=== PATIENT | female | born 1975 | race Caucasian/White ===

== ENCOUNTER 2018-06-05 16:42 | Outpatient (REF) | payer BC, SELFPAY ==
[2018-06-05 17:53] LABS: *AMPHETAMINES SCREEN URINE Negative (Negative); *BARBITURATES SCREEN URINE Negative (Negative); *BENZODIAZEPINES SCREEN URINE Negative (Negative); Cannabinoids THC Negative (Negative); Cocaine Screen,Urine Negative (Negative); METHADONE URINE SCREEN Negative (Negative); OPIATES URINE SCREEN Negative (Negative)
[2018-06-05 17:55] LABS: Tricyclic Antidepressants Negative (Negative)
[2018-06-10 11:59] LABS: Buprenorphine Negative; Norbuprenorphine Negative
== END 2018-06-05 17:02 ==
LOC: LBN 16:42
PROVIDERS: PCP Nurse Practitioner Family; Visit Provider Advanced Practice Midwife
DX: Z34.92 Encounter for supervision of normal pregnancy, unspecified, second trimester (principal)
CPT/HCPCS: 80307; 87086

== ENCOUNTER 2018-07-02 12:26 | Outpatient (CLI) | payer BC, SELFPAY ==
[2018-07-02 13:05] LABS: Glucose,1 Hr (Glucola) 130 mg/dL (80-140)
== END 2018-07-02 12:46 ==
PROVIDERS: Advanced Practice Midwife; PCP Nurse Practitioner Family; Visit Provider Advanced Practice Midwife
DX: Z34.92 Encounter for supervision of normal pregnancy, unspecified, second trimester (principal)
CPT/HCPCS: 36415; 82950

== ENCOUNTER 2018-07-02 14:01 | Outpatient (CLI) | payer BC, SELFPAY | END 2018-07-02 14:21 | PROVIDERS: PCP Nurse Practitioner Family; Visit Provider Advanced Practice Midwife | DX: R69 Illness, unspecified (principal) ==

== ENCOUNTER 2018-07-14 15:49 | Outpatient (REF) | payer BC, SELFPAY | END 2018-07-14 16:09 | LOC: LBN 15:49 | PROVIDERS: PCP Nurse Practitioner Family; Visit Provider Advanced Practice Midwife | DX: O26.892 Other specified pregnancy related conditions, second trimester (principal); R30.0 Dysuria | CPT/HCPCS: 87086 ==

== ENCOUNTER 2018-07-28 00:24 | Outpatient (CLI) | payer BC, SELFPAY ==
--- NOTE | 2018-07-28 15:53 | DI.US_ITS ---
Many abnormalities cannot be diagnosed. A normal exam does not exclude a congenital anomaly. Radiology No. LMP: Exam Date: 07/28/18 [facility] wks days on EDC ([facility]) 09/21/18 Confirmed: HISTORY: Z34.90, ADVANCED MATERNAL AGE,EFW, MURIEL PREDICTED GESTATIONAL AGE NUMBER 32.1 weeks with a range of 31.1 week to 33.1 weeks. 1 Determined by___1STUS___LMP_X_HISTORY Info. pertaining to fetus # PLACENTA PRESENTATION Grade I-II Cephalic_X__ Anterior___Posterior_X__ Breech____ Right Left Transverse(head right___ Fundal___Low-lying___Previa___ Transverse(head left___ Varying BIOMETRY AMNIOTIC FLUID BPD: 83 mm 33.2 weeks Normal HC: 301 mm 33.3 weeks AC: 298 mm 33.6 weeks FL: 62 mm 32.2 weeks AMNIOTIC FLUID INDEX >26 WK CRL: mm weeks Cisterna Magna: mm CI: 86 RUQ:_6.0 LUQ__1.9 Cerebellum: cm EFW: 2159 grams 76th Percentile RLQ:_2.4 LLQ___5.4____ Total:___15.7 cms Composite AGE= 33.2 wks EDC by US 09/13/18 BIOPHYSICAL PROFILE ANATOMY IDENTIFIED SCORE 0/2 Heart: 4-Chamber___Rate:BPM_136____ LVOT: RVOT: Amniotic Fluid(>2cms)____ Stomach: Kidneys: Respirations (>30 secs) Bladder: Post. Fossa: Body Flex/Extension 3 vessel cord: Ventricles: cord insertion: Lips:____ Extremity Flex/Extension spinal morphology: Nose: Total Score= Palate: NS=not seen The fetus is in cephalic position. The placenta is posterior and grade I-II. The biometric measurements correspond to 33 weeks 2 days. The estimated weight is 2159 grams. The amniotic fluid index appears normal at 15.7. IMPRESSION: weight and MURIEL are within normal limits.
== END 2018-07-28 00:44 ==
PROVIDERS: PCP Nurse Practitioner Family; Visit Provider Advanced Practice Midwife
DX: Z34.93 Encounter for supervision of normal pregnancy, unspecified, third trimester (principal)
CPT/HCPCS: 76816

== ENCOUNTER 2018-07-28 14:35 | Outpatient (CLI) | payer BC, SELFPAY ==
[2018-07-28 15:12] LABS: HGB 11.6 g/dL (12.0-15.5); Mean Corp. HGB Concentration 34.1 g/dL (32.0-36.0); Mean Corpuscular Hemoglobin 30.2 pg (27.0-33.0); Mean Corpuscular Volume 88.5 fL (80-95); Mean Platelet Volume 10.1 fL (8.0-11.0); Platelet Count 242 x1000/uL (130-400); RBC 3.84 m/cumm (4.00-5.20); RBC Distribution Width 12.5 % (11.7-14.6); White Blood Cell Count 12.79 k/cumm (4.4-10.8)
== END 2018-07-28 14:55 ==
PROVIDERS: Advanced Practice Midwife; PCP Nurse Practitioner Family; Visit Provider Advanced Practice Midwife
DX: Z34.92 Encounter for supervision of normal pregnancy, unspecified, second trimester (principal); Z01.84 Encounter for antibody response examination
CPT/HCPCS: 36415; 85027; 86850; 86900; 86901

== ENCOUNTER 2018-08-12 13:30 | Observation (INO) | payer BC, SELFPAY | END 2018-08-12 15:30 | disposition home or self-care (01) | PROVIDERS: Admitting Provider Advanced Practice Midwife; PCP Nurse Practitioner Family; Visit Provider Advanced Practice Midwife | DX: O60.03 Preterm labor without delivery, third trimester (principal); O98.813 Other maternal infectious and parasitic diseases complicating pregnancy, third trimester; B37.3 Candidiasis of vulva and vagina; Z3A.34 34 weeks gestation of pregnancy; O09.523 Supervision of elderly multigravida, third trimester | CPT/HCPCS: 59025; G0378 ==

== ENCOUNTER 2018-08-25 07:13 | Outpatient (CLI) | payer BC, SELFPAY | END 2018-08-25 07:33 | PROVIDERS: PCP Nurse Practitioner Family; Visit Provider Advanced Practice Midwife | DX: O09.523 Supervision of elderly multigravida, third trimester (principal); Z3A.36 36 weeks gestation of pregnancy | CPT/HCPCS: 59025 ==

== ENCOUNTER 2018-08-25 16:39 | Outpatient (REF) | payer BC, SELFPAY | END 2018-08-25 16:59 | LOC: LBN 16:39 | PROVIDERS: PCP Nurse Practitioner Family; Visit Provider Advanced Practice Midwife | DX: Z34.93 Encounter for supervision of normal pregnancy, unspecified, third trimester (principal); Z36.85 Encounter for antenatal screening for Streptococcus B | CPT/HCPCS: 87081 ==

== ENCOUNTER 2018-08-28 07:41 | Outpatient (CLI) | payer BC, SELFPAY | END 2018-08-28 08:01 | PROVIDERS: PCP Nurse Practitioner Family; Visit Provider Advanced Practice Midwife | DX: O09.523 Supervision of elderly multigravida, third trimester (principal); O36.8130 Decreased fetal movements, third trimester, not applicable or unspecified; Z3A.36 36 weeks gestation of pregnancy | CPT/HCPCS: 59025 ==

== ENCOUNTER 2018-09-01 13:00 | Outpatient (CLI) | payer BC, SELFPAY ==
[2018-09-01 15:01] LABS: HCT 34.4 % (36.0-46.0); HGB 11.5 g/dL (12.0-15.5); Mean Corp. HGB Concentration 33.4 g/dL (32.0-36.0); Mean Corpuscular Hemoglobin 29.5 pg (27.0-33.0); Mean Corpuscular Volume 88.2 fL (80-95); Mean Platelet Volume 10.5 fL (8.0-11.0); Platelet Count 240 x1000/uL (130-400); RBC Distribution Width 12.7 % (11.7-14.6); White Blood Cell Count 12.61 k/cumm (4.4-10.8)
[2018-09-01 16:35] LABS: PROTEIN 8.9 mg/dL
[2018-09-01 16:47] LABS: ALT 20 U/L (12-78); AST 19 U/L (15-37); Albumin 2.7 g/dL (3.4-5.0); Alkaline Phosphatase 134 U/L (46-116); Bilirubin, Direct 0.06 mg/dL (0.00-0.20); Bilirubin, Total 0.2 mg/dL (0.2-1.0); CREATININE 0.63 mg/dL (0.55-1.02); Total Protein 6.3 g/dL (6.4-8.2); Uric Acid 3.3 mg/dL (2.6-6.0)
[2018-09-01 16:51] LABS: COMMENT (LAB VIEW ONLY) 48.02 mg/dL; Prot/Crea Ur Ratio 0.18
== END 2018-09-01 13:20 ==
PROVIDERS: Advanced Practice Midwife; PCP Nurse Practitioner Family; Visit Provider Advanced Practice Midwife
DX: O09.523 Supervision of elderly multigravida, third trimester (principal); Z3A.37 37 weeks gestation of pregnancy
CPT/HCPCS: 36415; 80076; 85027; 59025; 82565; 84156; 84550

== ENCOUNTER 2018-09-04 14:39 | Outpatient (CLI) | payer BC, SELFPAY | END 2018-09-04 14:59 | PROVIDERS: PCP Nurse Practitioner Family; Visit Provider Advanced Practice Midwife | DX: O36.8130 Decreased fetal movements, third trimester, not applicable or unspecified (principal); O09.523 Supervision of elderly multigravida, third trimester; Z3A.37 37 weeks gestation of pregnancy | CPT/HCPCS: 59025 ==

== ENCOUNTER 2018-09-08 08:02 | Outpatient (CLI) | payer BC, SELFPAY | END 2018-09-08 08:22 | PROVIDERS: PCP Nurse Practitioner Family; Visit Provider Advanced Practice Midwife | DX: O09.523 Supervision of elderly multigravida, third trimester (principal); Z3A.38 38 weeks gestation of pregnancy | CPT/HCPCS: 59025 ==

== ENCOUNTER 2018-09-08 14:42 | Outpatient (REF) | payer BC, SELFPAY ==
[2018-09-08 15:17] LABS: ROM Plus Negative
== END 2018-09-08 15:02 ==
LOC: LBN 14:42
PROVIDERS: PCP Nurse Practitioner Family; Visit Provider Advanced Practice Midwife
DX: Z34.93 Encounter for supervision of normal pregnancy, unspecified, third trimester (principal)
CPT/HCPCS: 84112

== ENCOUNTER 2018-09-15 07:45 | Outpatient (CLI) | payer BC, SELFPAY | END 2018-09-15 08:05 | PROVIDERS: PCP Nurse Practitioner Family; Visit Provider Advanced Practice Midwife | DX: O09.523 Supervision of elderly multigravida, third trimester (principal); Z3A.39 39 weeks gestation of pregnancy | CPT/HCPCS: 59025 ==

== ENCOUNTER 2018-09-18 13:08 | Outpatient (CLI) | payer BC, SELFPAY | END 2018-09-18 13:28 | PROVIDERS: PCP Nurse Practitioner Family; Visit Provider Advanced Practice Midwife | DX: O09.523 Supervision of elderly multigravida, third trimester (principal); Z3A.39 39 weeks gestation of pregnancy | CPT/HCPCS: 59025 ==

== ENCOUNTER 2018-09-19 08:22 | Inpatient (IN) | payer BC, SELFPAY ==
[2018-09-19 09:16] LABS: HCT 34.4 % (36.0-46.0); HGB 11.3 g/dL (12.0-15.5); Mean Corp. HGB Concentration 32.8 g/dL (32.0-36.0); Mean Corpuscular Hemoglobin 28.9 pg (27.0-33.0); Mean Platelet Volume 10.7 fL (8.0-11.0); Platelet Count 221 x1000/uL (130-400); RBC 3.91 m/cumm (4.00-5.20); RBC Distribution Width 13.2 % (11.7-14.6); White Blood Cell Count 9.29 k/cumm (4.4-10.8)
[2018-09-19] MEDS: Water,Injection,Sterile 10 ML VIAL (12:06)
[2018-09-19] MEDS: Oxytocin 10 UNITS/ML VIAL IM (14:40)
[2018-09-19] MEDS: Acetaminophen 325 MG TAB 650 MG PO (16:16)
[2018-09-19] MEDS: Hamamelis Leaf/Glycerin 100 EACH BOX PR (16:16)
[2018-09-19] MEDS: Ibuprofen 600 MG TAB PO (16:16)
[2018-09-19] MEDS: oxyCODONE 5 mg/Acetaminophen 325 mg TAB 1 TAB PO (19:16)
[2018-09-20] MEDS: oxyCODONE 5 mg/Acetaminophen 325 mg TAB 1 TAB PO (00:07)
== END 2018-09-21 13:00 | disposition home or self-care (01) | DRG 806 ==
PROVIDERS: Admitting Provider Advanced Practice Midwife; PCP Nurse Practitioner Family; Visit Provider Advanced Practice Midwife
DX: O42.02 Full-term premature rupture of membranes, onset of labor within 24 hours of rupture (principal); O99.324 Drug use complicating childbirth; Z37.0 Single live birth; Z3A.39 39 weeks gestation of pregnancy; O70.0 First degree perineal laceration during delivery; O66.0 Obstructed labor due to shoulder dystocia; F12.90 Cannabis use, unspecified, uncomplicated; Z79.82 Long term (current) use of aspirin; Z67.40 Type O blood, Rh positive; Z23 Encounter for immunization
CPT/HCPCS: 36415; 85027; 86850; 86900; 86901; J2590

== ENCOUNTER 2019-07-05 12:04 | Outpatient (CLI) | payer MEDICAID, SELFPAY ==
[2019-07-05 12:45] LABS: Abs Immature Grans 0.04 k/cumm (0.0-0.09); Absolute Basophil Count 0.02 k/cumm (0.0-0.2); Absolute Eosinophil Count 0.09 k/cumm (0.0-0.7); Absolute Lymphocyte Count 1.67 k/cumm (1.2-3.4); Absolute Monocyte Count 0.61 k/cumm (0.11-0.7); Absolute Neutrophil Count 7.75 k/cumm (1.2-6.7); Basophils % 0.2; Eosinophils % 0.9; HCT 39.4 % (36.0-46.0); HGB 13.4 g/dL (12.0-15.5); Immature Grans % 0.4 %; Lymphocytes % 16.4; Mean Corpuscular Hemoglobin 29.7 pg (27.0-33.0); Mean Corpuscular Volume 87.4 fL (80-95); Mean Platelet Volume 9.2 fL (8.0-11.0); Neutrophils % 76.1; Platelet Count 331 x1000/uL (130-400); RBC 4.51 m/cumm (4.00-5.20); RBC Distribution Width 12.1 % (11.7-14.6); White Blood Cell Count 10.18 k/cumm (4.4-10.8)
[2019-07-05 14:28] LABS: Kit/Specimen SENT
[2019-07-06 09:56] LABS: Hepatitis B Surface Ag Negative (Negative)
[2019-07-06 10:41] LABS: Hepatitis C Ab w Rflx HCV PCR Negative (Negative); Rubella IgG Ab (UVM) Negative (See Note); Varicella IgG Antibody Positive (See Note)
[2019-07-06 11:08] LABS: HIV-1/2 Ag & Ab Screen Negative (Negative)
[2019-07-06 14:44] LABS: Syphilis Total Ab w/Reflex Nonreactive (Nonreactive)
== END 2019-07-05 12:24 ==
PROVIDERS: PCP Nurse Practitioner Family; Visit Provider Advanced Practice Midwife
DX: Z34.91 Encounter for supervision of normal pregnancy, unspecified, first trimester (principal); Z36.89 Encounter for other specified antenatal screening; Z11.4 Encounter for screening for human immunodeficiency virus [HIV]; Z11.59 Encounter for screening for other viral diseases; Z01.84 Encounter for antibody response examination
CPT/HCPCS: 36415; 86787; 86803; 86850; 86900; 86901; 87340; 87389; 85025; 86762; 86780

== ENCOUNTER 2019-07-05 15:40 | Outpatient (REF) | payer MEDICAID, SELFPAY ==
--- NOTE | 2019-07-05 13:40 | PAPFT_PTH ---
PATIENT: Sofia Vallejo LOC: [facility] U#:[id number] AGE/SX: 43/F ROOM: RE07/05/[address]: Faina Schulz RN : 1975 BED: DIS: 07/05/2019 SPEC #: [id number] RECD: 07/05/19 17:48 STATUS: MADDIE MONDRAGON #: [id number] TATIANA: 07/05/19 13:[address]: Faina Schulz DEPT: [facility] Cytology RECD BY: Deedee Weathers ENTERED: 07/05/19 17:48 SP TYPE: PAPFT OTHR DR: Judith Solares Tissues: 1 - CX/ENDOCX FOR PAP SMEARS Procedures: PAP THIN PREP/UVM Screening HPV DNA PROBE Comments: [id number]
[2019-07-05 17:08] LABS: *AMPHETAMINES SCREEN URINE Negative (Negative); *BARBITURATES SCREEN URINE Negative (Negative); *BENZODIAZEPINES SCREEN URINE Negative (Negative); Cannabinoids THC Negative (Negative); Cocaine Screen,Urine Negative (Negative); METHADONE URINE SCREEN Negative (Negative); OPIATES URINE SCREEN Negative (Negative)
[2019-07-05 17:09] LABS: Tricyclic Antidepressants Negative (Negative)
[2019-07-07 13:07] LABS: Chlamydia Result Negative (Negative); GC Result Negative (Negative)
[2019-07-09 11:34] LABS: Buprenorphine Negative; Norbuprenorphine Negative
== END 2019-07-05 16:00 ==
LOC: LBN 15:40
PROVIDERS: Advanced Practice Midwife; PCP Nurse Practitioner Family; Visit Provider Advanced Practice Midwife
DX: Z34.91 Encounter for supervision of normal pregnancy, unspecified, first trimester (principal); Z11.3 Encounter for screening for infections with a predominantly sexual mode of transmission; Z12.4 Encounter for screening for malignant neoplasm of cervix; Z11.51 Encounter for screening for human papillomavirus (HPV)
CPT/HCPCS: 80307; 87491; 87591; 88142; 87086; 87624

== ENCOUNTER 2019-11-02 01:25 | Outpatient (CLI) | payer MEDICAID, SELFPAY ==
--- NOTE | 2019-11-02 10:15 | DI.US_ITS ---
EXAM: US OB MURIEL WEIGHT CLINICAL HISTORY: marginal cord insertion ck efw/muriel, Z34.90. TECHNIQUE: Transabdominal obstetrical ultrasound performed. COMPARISON: US US OB MURIEL weight from 07/28/2018 FINDINGS: Transabdominal obstetrical ultrasound performed. There is a single living intrauterine gestation. The estimated sonographic age is 28 weeks 2 days. The estimated weight is 1158 g. This is 61st percentile. Amniotic fluid index is 11.6 cm. Vi sually the amniotic fluid is within normal limits. The fetus is in the breech presentation. heart rate is 163 beats per minute. The placenta is anterior without evidence of previa. There is no evidence of a marginal cord inserti on. The cord measures 5.9 cm from the edge of the placenta. IMPRESSION: 1. Single live intrauterine gestation as above. 2. Please see the above discussion for complete details. DATA REPOSITORY:
== END 2019-11-02 01:45 ==
PROVIDERS: PCP Nurse Practitioner Family; Visit Provider Advanced Practice Midwife
DX: Z34.93 Encounter for supervision of normal pregnancy, unspecified, third trimester (principal); Z3A.28 28 weeks gestation of pregnancy
CPT/HCPCS: 36415; 76816; 82950; 85027

== ENCOUNTER 2019-11-09 17:26 | Observation (INO) | payer MEDICAID, SELFPAY ==
--- NOTE | 2019-11-09 | DI.CT_ITS ---
EXAM: CT CHEST PE CTA CLINICAL HISTORY: rule out PE, 28 weeks gestation. TECHNIQUE: Imaging Protocol: Axial CT angiography was performed with multi-slice acquisition and mu lti-planar and/or 3D reconstructions. CONTRAST MATERIAL: Intravenous: Omnipaque 350 Contrast volume:63 cc. COMPARISON: CT ABD PELVIS WITH CONTRAST from 12/13/2016 FINDINGS: There is artifact related to spinal hardware. Pulmonary Arteries: No evidence of filling defect to suggest pulmonary emboli. Tracheobronchial tree: Patent where visualized. Mediastinum and Janel: No dominant adenopathy or fluid collection. Pulmonary parenchyma: No consolidation or dominant measurable mass. Mild respiratory motion and depen dent changes.. Pleura: No effusion or pneumothorax. Heart: The heart is not dilated. No coronary artery calcifications are seen. Aorta: Thoracic aorta non-dilated. Upper abdomen: Unremarkable. Bones: Severe thoracic scoliosis with Wilcox rods in place. Tubes, Catheters, and Lines: IMPRESSION: No evidence of pulmonary embolism or other acute abnormality.. RADIATION DOSE DELIVERED: Total DLP DATA REPOSITORY: All CT scans at this facility are submitted to the National Radiology Data Registry (NRDR) Dose Index Registry (DIR) with the [employer] (ACR). RADIATION OPTIMIZATION: All CT scans at this facility use at least one of these dose optimization te chniques: automated exposure control; mA and/or kV adjustment per patient size (includes targeted exa ms where dose is matched to clinical indication); or iterative reconstruction.
[2019-11-09 18:16] LABS: Abs Immature Grans 0.03 k/cumm (0.0-0.09); Absolute Basophil Count 0.01 k/cumm (0.0-0.2); Absolute Eosinophil Count 0.05 k/cumm (0.0-0.7); Absolute Lymphocyte Count 1.56 k/cumm (1.2-3.4); Absolute Monocyte Count 0.83 k/cumm (0.11-0.7); Absolute Neutrophil Count 7.17 k/cumm (1.2-6.7); Basophils % 0.1; Eosinophils % 0.5; HCT 31.2 % (36.0-46.0); HGB 10.5 g/dL (12.0-15.5); Immature Grans % 0.3 %; Lymphocytes % 16.2; Mean Corp. HGB Concentration 33.7 g/dL (32.0-36.0); Mean Corpuscular Volume 89.1 fL (80-95); Mean Platelet Volume 9.9 fL (8.0-11.0); Monocytes % 8.6; Neutrophils % 74.3; Platelet Count 225 x1000/uL (130-400); RBC Distribution Width 12.3 % (11.7-14.6); White Blood Cell Count 9.65 k/cumm (4.4-10.8)
[2019-11-09 18:31] LABS: ALT 11 U/L (14-59); AST 12 U/L (15-37); Albumin 2.7 g/dL (3.4-5.0); Alkaline Phosphatase 69 U/L (46-116); Anion Gap 10.2 mmol/L (3-11); BUN 7 mg/dL (7-18); Bilirubin, Total 0.2 mg/dL (0.2-1.0); CO2 22.8 mmol/L (21.0-32.0); Calcium 8.2 mg/dL (8.5-10.1); Chloride 106 mmol/L (98-107); Glucose 70 mg/dL (74-106); NT-proBNP 61 pg/mL (<300); Potassium 3.4 mmol/L (3.5-5.1); Sodium 139 mmol/L (136-145)
[2019-11-09 18:42] LABS: D-Dimer 1534 ng/mlFEU (<500)
[2019-11-09] MEDS: Omnipaque 350 MG/ML 100 ML BTL IV (20:28)
[2019-11-09] MEDS: Normal Saline 20 ML VIAL IV ×2 (20:33→20:34)
[2019-11-09] MEDS: Normal Saline Flush 10 ML SYR (20:38)
--- NOTE | 2019-11-09 20:48 | DI.VRAD_ITS ---
PROCEDURE INFORMATION: Exam: CT Angiography Chest With Contrast Exam date and time: 11/09/2019 8:15 PM Age: 44 years old Clinical indication: Other: Rule out pe, 28 weeks gestation; Prior surgery; Surgery date: 6+ months; Surgery type: Back TECHNIQUE: Imaging protocol: Computed tomographic angiography of the chest with intravenous contrast. 3D rendering: MIP and/or 3D reconstructed images were created by the technologist. Radiation optimization: All CT scans at this facility use at least one of these dose optimization techniques: automated exposure control; mA and/or kV adjustment per patient size (includes targeted exams where dose is matched to clinical indication); or iterative reconstruction. Contrast material: OMNIPAQUE 35; Contrast volume: 63 ml; Contrast route: INTRAVENOUS (IV); COMPARISON: No relevant prior studies available. FINDINGS: Pulmonary arteries: Normal. No pulmonary emboli. Aorta: Unremarkable. No aortic aneurysm. No aortic dissection. Lungs: Unremarkable. No consolidation. No masses. Pleural space: Unremarkable. No pneumothorax. No pleural effusion. Heart: Unremarkable. No cardiomegaly. No pericardial effusion. Mediastinal space: Small to moderate hiatal hernia. Lymph nodes: Unremarkable. No enlarged lymph nodes. Bones/joints: Scoliosis surgery has been performed. Soft tissues: Unremarkable. IMPRESSION: No pulmonary embolism. Dictated and Authenticated by: Abiola Kumar MD. Ordering:PATO Bahena MD
[2019-11-10 08:45] LABS: COVID-19 RT-PCR UVMMC Result Negative (Negative)
== END 2019-11-09 21:14 | disposition home or self-care (01) ==
PROVIDERS: Admitting Provider Advanced Practice Midwife; PCP Nurse Practitioner Family; Visit Provider Advanced Practice Midwife
DX: O26.893 Other specified pregnancy related conditions, third trimester (principal); R06.02 Shortness of breath; Z11.59 Encounter for screening for other viral diseases
CPT/HCPCS: 71275; 80053; U0003; 59025; 83880; 85025; 85379; G0378; J3490

== ENCOUNTER 2019-11-12 04:12 | Outpatient (RCR) | payer MEDICAID, SELFPAY ==
[2019-11-12] MEDS: Normal Saline Flush 10 ML SYR IVP (13:26)
[2019-11-12 13:33] LABS: HCT 34.8 % (36.0-46.0); HGB 11.5 g/dL (12.0-15.5)
[2019-11-12] MEDS: IRON SUCROSE COMPLEX 200 MG in Normal Saline 100 ML 440 MG IVPB (13:43)
== END 2019-12-03 23:59 | disposition home or self-care (01) ==
LOC: INF 04:12
PROVIDERS: PCP Nurse Practitioner Family; Visit Provider Advanced Practice Midwife
DX: D50.9 Iron deficiency anemia, unspecified (principal); O99.013 Anemia complicating pregnancy, third trimester
CPT/HCPCS: 36415; 96365; 85014; 85018; J1756

== ENCOUNTER 2019-12-17 12:51 | Outpatient (REF) | payer MEDICAID, SELFPAY | END 2019-12-17 13:11 | LOC: LBN 12:51 | PROVIDERS: PCP Nurse Practitioner Family; Visit Provider Advanced Practice Midwife | DX: B37.3 Candidiasis of vulva and vagina (principal) | CPT/HCPCS: 87480; 87510; 87660 ==

== ENCOUNTER 2019-12-20 14:29 | Outpatient (CLI) | payer MEDICAID, SELFPAY ==
--- NOTE | 2019-12-20 | DI.US_ITS ---
EXAM: US OB MURIEL WEIGHT CLINICAL HISTORY: Lagging fundal height, Size < Dates. COMPARISON: No exams were available for comparison TECHNIQUE: Transabdominal obstetrical ultrasound performed. FINDINGS: Sonographic images demonstrate a single intrauterine gestation in cephalic position. Plancenta:Anterior, grade 1-2 Predicted gestational age: 34 weeks 2 days Estimated date of delivery 29 January 2020: heart rate motion is Dopplered at: 140 BPM. BPD: 88mm = 30 5+3 weeks HC: 314mm = 30 5+1 weeks AC: 304mm = 30 4+3 weeks FL: 67mm = 30 4+3 weeks EFW: 2457 Grams = 52 % Sonographically assessed composite gestational age: 34+ 6 weeks Estimated date of delivery based on this ultrasound is: 25 January 2020 Amniotic fluid index: 10.6 cm. Amount of fluid is within normal limits. IMPRESSION: size and weight are within the expected range . DATA REPOSITORY:
== END 2019-12-20 14:49 ==
PROVIDERS: PCP Nurse Practitioner Family; Visit Provider Advanced Practice Midwife
DX: O09.523 Supervision of elderly multigravida, third trimester (principal); O26.843 Uterine size-date discrepancy, third trimester; Z3A.34 34 weeks gestation of pregnancy
CPT/HCPCS: 76816; 59025

== ENCOUNTER 2019-12-27 07:47 | Outpatient (CLI) | payer MEDICAID, SELFPAY | END 2019-12-27 08:07 | PROVIDERS: PCP Nurse Practitioner Family; Visit Provider Advanced Practice Midwife | DX: O09.523 Supervision of elderly multigravida, third trimester (principal); Z3A.35 35 weeks gestation of pregnancy | CPT/HCPCS: 59025 ==

== ENCOUNTER 2020-01-05 11:43 | Outpatient (CLI) | payer MEDICAID, SELFPAY ==
[2020-01-05 20:23] LABS: *AMPHETAMINES SCREEN URINE Negative (Negative); *BARBITURATES SCREEN URINE Negative (Negative); *BENZODIAZEPINES SCREEN URINE Negative (Negative); Cannabinoids THC Negative (Negative); Cocaine Screen,Urine Negative (Negative); METHADONE URINE SCREEN Negative (Negative); OPIATES URINE SCREEN Negative (Negative)
[2020-01-05 20:40] LABS: Tricyclic Antidepressants Negative (Negative)
[2020-01-12 11:08] LABS: Buprenorphine Negative; Norbuprenorphine Negative
== END 2020-01-05 12:03 ==
PROVIDERS: PCP Nurse Practitioner Family; Visit Provider Advanced Practice Midwife
DX: O36.8130 Decreased fetal movements, third trimester, not applicable or unspecified (principal); Z3A.36 36 weeks gestation of pregnancy
CPT/HCPCS: 80307; 59025; 87081

== ENCOUNTER 2020-01-11 07:13 | Outpatient (CLI) | payer MEDICAID, SELFPAY | END 2020-01-11 07:33 | PROVIDERS: PCP Nurse Practitioner Family; Visit Provider Advanced Practice Midwife | DX: O09.523 Supervision of elderly multigravida, third trimester (principal); Z3A.37 37 weeks gestation of pregnancy | CPT/HCPCS: 59025 ==

== ENCOUNTER 2020-01-13 09:12 | Outpatient (CLI) | payer MEDICAID, SELFPAY | END 2020-01-13 09:32 | PROVIDERS: PCP Nurse Practitioner Family; Visit Provider Advanced Practice Midwife | DX: O09.523 Supervision of elderly multigravida, third trimester (principal); Z3A.37 37 weeks gestation of pregnancy | CPT/HCPCS: 59025 ==

== ENCOUNTER 2020-01-18 08:54 | Outpatient (CLI) | payer MEDICAID, SELFPAY ==
[2020-01-18 09:20] VITALS: BP 113/74; PULSE 64; PULSE 65; TEMP 36.7
--- NOTE | 2020-01-18 10:01 | W.OBNST ---
Date of service: 01/18/20 Time of Service: 10:01 NST Evaluation Reason for NST Reasons for Nonstress Test: ADVANCED MATERNAL AGE Gestational Age Gestational Age in Weeks and Days: 38 Weeks and 3Days Test and Monitor Explained Test/Monitor Explained: Test Explained, Monitor Explained and Patient Verbalized Understanding Vital Signs Blood Pressure: 113/74 Pulse: 64 Temperature: 98.1 F Urine Results Urine Protein: Negative Urine Ketones: Negative Urine Glucose: Negative Urine Blood: Negative NST Information Date on Monitor: 01/18/20 Time on Monitor: 09:11 Date off Monitor: 01/18/20 Time off Monitor: 09:40 Total Time on Monitor: 29 NST Interventions: PO Hydration and Meal Given Contraction Frequency: none noted NST Evaluation Patient States Movement: Present FHR Baseline: 135 Variability: Moderate 6-25 bpm Accelerations: 15x15 Decelerations: None NST Results: Reactive NST Results Other: KM in to view strip Note NST Note Note: reactive NST, RT center 01/20. vertex confirmed with US NST Reviewed and Verified by: Shruti Winn
[2020-01-18 10:02] VITALS: BP 113/74; PULSE 64; TEMP 36.7
== END 2020-01-18 09:50 | disposition home or self-care (01) ==
LOC: BCD 08:57 → OBS 09:12
PROVIDERS: PCP Nurse Practitioner Family; Visit Provider Advanced Practice Midwife
DX: O09.523 Supervision of elderly multigravida, third trimester (principal); Z3A.38 38 weeks gestation of pregnancy
CPT/HCPCS: 59025

== ENCOUNTER 2020-01-21 08:44 | Outpatient (CLI) | payer MEDICAID, SELFPAY ==
[2020-01-21 09:21] VITALS: BP 120/75; PULSE 65; TEMP 36.6
--- NOTE | 2020-01-21 09:51 | W.OBNST ---
Date of service: 01/21/20 Time of Service: 09:51 NST Evaluation Reason for NST Reasons for Nonstress Test: ADVANCED MATERNAL AGE Gestational Age Gestational Age in Weeks and Days: 38 Weeks and 6Days Test and Monitor Explained Test/Monitor Explained: Test Explained, Monitor Explained and Patient Verbalized Understanding Vital Signs Blood Pressure: 120/75 Pulse: 65 Temperature: 97.9 F NST Information Time on Monitor: 09:17 NST Interventions: PO Hydration NST Evaluation Patient States Movement: Present FHR Baseline: 140 Variability: Moderate 6-25 bpm Accelerations: 15x15 Decelerations: None NST Results: Reactive Note NST Note Note: induction planned 01/23/20 NST Reviewed and Verified by: Shruti Winn
[2020-01-21 09:52] VITALS: BP 120/75; PULSE 65; TEMP 36.6
== END 2020-01-21 09:55 | disposition home or self-care (01) ==
LOC: BCD 08:45 → OBS 08:54
PROVIDERS: PCP Nurse Practitioner Family; Visit Provider Advanced Practice Midwife
DX: O09.523 Supervision of elderly multigravida, third trimester (principal); Z3A.38 38 weeks gestation of pregnancy
CPT/HCPCS: 59025

== ENCOUNTER 2020-01-23 16:47 | Inpatient (IN) | payer MEDICAID, SELFPAY ==
[2020-01-23 16:59] VITALS: BP 120/74; PULSE 69; TEMP 36.7
[2020-01-23 17:02] VITALS: BP 120/74; PULSE 69
[2020-01-23 18:02] VITALS: BP 120/74; PULSE 69; RESP 16
[2020-01-23 18:25] VITALS: BP 120/74; PULSE 69; RESP 16
--- NOTE | 2020-01-23 18:30 | W.PM.OBHPL1 ---
Date of service: 01/23/20 Time of Service: 18:31 Assessment and Plan Assessment and plan (1) Elective induction of labor planned: Status: Acute Assessment and plan: Admit to Center. Comfort measures. Covid- 19 test. Anticipate . Options for induction discussed. Will start misoprostol PO 25 mcg every 4 hours per protocol (2) Advanced maternal age (AMA) in : Status: Acute OB-HPI Labor/Delivery History of Present Illness Reason for Visit: IOL FOR AMA Chief Complaint: Scheduled Induction of Labor (advanced maternal age) Indication for Induction: Other (advanced maternal age). KIRTI Calculator Estimated Delivery Date Method Current WG Current Estimate 01/29/20 Ultrasound #1 39w 1d Other Estimates 01/23/20 LMP (Certain) 40w 0d History of Present Expected Delivery Route/Plan - CNM CAMRON/romel Vallejo (this is their second child together) Rubella Non-Immune: offer MMR BG GBS Negative AMA >40 at delivery: NST 2x/wk from 37 wks, IOL @ 39 wks, IOL booked for 1630 on 01/22 Desires post-placental Mirena insertion Specific Issues/Plan 1. AMA - desires harmony testing. PA requested, not required with medicaid 1a. Sma/CF may be decided upon by pt. Forms filled out. Took to lab w/ [place], unsure as to whether she will have drawn knowing may be expensive. 1b. [place] result low prob x3, female 1c. [place] [facility] [place] to schedule appointment 1d. [facility] [place] Placenta anterior w/ Marginal Cord Insertion recommend 3rd trimester usg for growth.al 1e. US shows no longer marginal placenta 2. 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 Asthma - inhaler script renewed 3a. Increased asthma symptoms with this . Zyrtec daily recommended. 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 Large ovarian cyst noted with previous - Dating US scheduled, no cyst seen 06/16 5. Conceived when baby was 7 months old. Iron discussed, adv iron rich diet, use kajal iron fish. 8. Rubella Non-Immune 9. If has to deliver via C/S then would opt for TL: plan 30 wk MD appt to discuss, scheduled appointment with 10. Mild shoulder dystocia with third . 11. Seen at Center for shortness of breath. Low H and H, iron infusion every other week ordered. 11a.Hgb at infusion was 11.5 , no further infusions ordered. Will plan to recheck Hgb after 2 weeks. 11b. Fingerstick Hgb 11.7 - discontinue iron infusion Assessment: History Reviewed & Current Informed Consent Informed Consent: Risk,Benefits,Alternatives Discussed [facility] Medical History (Updated 01/23/20 @ 18:34 by Shruti Winn CNM) Asthma Cervical scoliosis Childhood asthma Diverticulitis (01/06/13) Diverticulitis 01/2013 Eating disorder stress related Ovarian cyst Scoliosis of thoracic spine Wilcox Rods implanted age 17 Surgical History Colonoscopy - IV Sedation (12/22/14) Dr. Hermilo Vidal Wilcox rods/spine placed age 16/15 [facility] Family History (Updated 07/05/19 @ 13:14 by Faina Schulz CNM) Maternal Grandmother Diabetes Social History Smoking/Tobacco Use Status: Former Tobacco Use Alcohol Intake: former Drug use: Occasionally Substance use type: does not use and marijuana Do you feel safe in your relationship?: Yes History History 4 Para 3 Hx # Term Pregnancies 3 Multiple births 0 Hx # Pregnancies 0 Ectopic pregnancies 0 AB induced 1 Hx Number of Living Children 3 AB spontaneous 0 Past Pregnancies Del. Date GA/Weeks # Outcome Route Wgt Sex Labor Lgth Anesthesia Location Prov Complic 10/31/00 40 No Successful vaginal 6 lb 11 oz Female 9 hrs [facility] 07/26/04 40 No Successful vaginal 6 lb 6 oz Female 4 hrs [facility] 09/19/18 39 No Successful vaginal 8 lb 11 oz Male 7 hrs. 45 min. Shruti Winn CNM Delivery Date: 10/31/00 VAVD failed, forceps for decreased FHT, cord around the neck Daisy Hilario Delivery Date: 07/26/04 no meds, no problems Daisy Hilario Delivery Date: 09/19/18 AMA, mild shoulder dystocia Shruti Winn Meds Home Medications and Allergies Home Medications Medication Instructions Recorded Confirmed Type prenat.vits,aruna,eal-miid-erndo 1 tab PO DAILY 07/28/18 01/11/20 History fluticasone furoate 27.5 1 spray MERLE PRN ml 08/13/18 01/11/20 History mcg/actuation nasal spray,suspension fluticasone propionate 110 2 puff IH BID 12/27/19 01/11/20 History mcg/actuation HFA aerosol inhaler Allergies Allergy/AdvReac Type Severity Reaction Status Date / Time Sulfa (Sulfonamide Allergy Mild Verified 01/11/20 09:52 Antibiotics) morphine AdvReac Intermediate Verified 01/11/20 09:52 Exam Physical Exam Vital signs: Pulse Resp BP 69 16 120/74 01/23/20 18:02 01/23/20 18:02 01/23/20 18:02 Vital Signs Reviewed: Yes Constitutional Constitutional: no acute distress Detailed Labor and Delivery Exam Dilation: 1 Effacement (%): 50 station: -3 Cervix position: posterior Consistency: soft Ortiz Score: Cervical Points Exam 0 1 2 3 Dilation Closed 1-2cm 3-4 cm 5-6cm Effacement 0-30% 40-50% 60-70% 80% Consistency Firm Medium Soft Station -3 -2 -1,0 +1,+2 Position Posterior Mid Anterior Amniotic Membrane Status: Intact Monitor Mode: External Contraction Intensity: Mild/Moderate Fetus A Heart Rate Baseline: 120 Monitor Accelerations: 15 X 15 Monitor Decelerations: None Variability: Moderate (6-25 BPM) Presentation: Cephalic Categories: Category I Est. Weight: 7 lb HEENT Exam HEENT Exam: Normal Respiratory Exam Respiratory Exam: Normal Cardiovascular Exam Cardiovascular Exam: Normal Abdominal Exam Abdominal Exam: Normal Exam Exam: Normal Extremities Exam Extremities Exam: Normal Skin Exam Skin Exam: Normal Psychiatric Exam Psychiatric Exam: Normal Results Results Group Beta Strep: Negative Blood Type: O+ Rubella Status: Nonimmune Varicella Immunity: Immune Risk Assessment Risk for Shoulder Dystocia Historical/Initial OB: NEGATIVE FOR: Pelvic Abnormality, Pre- BMI>30, Previous Shoulder Dystocia or Previous Macrosomia Increased Risk?: No (iob 07/05/19) Date/Initial: 08/25/18 al Delivery Plan @ 36wks: 08/25/18 al Risk for Pre-Eclampsia Daily Dose ASA Indicated: Yes Date Initiated/Initials: start @ 24 wks. GAURAV 06/05/18 Yes, if one or more: NEGATIVE FOR: Hx Pre-E/Gest HTN, Chronic HTN, Multiple Gestation, Pre-gestational DM, Renal Disease, Systemic Lupus or APA Syndrome Yes, if 2 or more: POSITIVE FOR: Age>= 35 yrs and >10yr btwn pregnancies; NEGATIVE FOR: Nulliparity, BMI>30, ethinicty, Mother/Sister w/ Pre-E or Previous IUGR Risk for Post- Hemorrhage Initial: NEGATIVE FOR: Multiple Gestation, Previous PPH, Known Clotting Deficiency, Grand Multiparity or Anticoagulation At Risk?: No (07/05/19 al) Risks Reviewed Risks Reviewed Upon Admission: Yes
[2020-01-23] MEDS: miSOPROStol 25 MCG TAB PO ×2 (19:27→23:26)
[2020-01-23 19:42] LABS: HGB 11.6 g/dL (11.2-15.7); MCH 28.9 pg (27.0-33.0); MCHC 32.2 % (32.0-36.0); MCV 89.6 fL (80-95); MPV 10.1 fL (8.0-11.0); Platelet Count 227 10^3/uL (130-400); RBC 4.02 10^6/uL (3.93-5.22); RDW 12.8 % (11.7-14.6); RDW-SD 42.2 fL; WBC 10.94 10^3/uL (4.4-10.8)
[2020-01-23 20:47] VITALS: BP 128/69; PULSE 81; RESP 18; TEMP 36.7
[2020-01-23 23:17] VITALS: BP 129/78; PULSE 64
[2020-01-23] MEDS: Zolpidem 5 MG TAB 10 MG PO (23:27)
[2020-01-24] MEDS: miSOPROStol 25 MCG TAB PO (03:24)
[2020-01-24 03:26] VITALS: BP 113/59; PULSE 69; RESP 16; TEMP 36.8
--- NOTE | 2020-01-24 04:45 | W.PM.OBNL1 ---
Date of service: 01/24/20 Time of Service: 04:46 Informed Consent Informed Consent: Risk,Benefits,Alternatives Discussed Contractions Monitor Mode: External Contraction Frequency(min): Q 5-6 minutes Contraction Duration(sec): 40-60 Intensity: Mild/Moderate Fetus A Monitor: External (US) Heart Rate Baseline: 130 Presentation: Vertex Variability: Moderate (6-25 BPM) Categories: Category I FHR Rhythm: Regular Decelerations: None Assessment and Plan Assessment and plan (1) Elective induction of labor planned: Status: Acute Assessment and plan: Coping well with contractions. Category 1 tracing. Rest encouraged. Anticipate Objective Abnormal lab results 01/23/20 Range/Units 19: WBC 10.94 H (4.4-10.8) 10^3/uL Temp Pulse Resp BP 98.2 F 69 16 113/59 L 01/24/20 03:26 01/24/20 03:26 01/24/20 03:26 01/24/20 03:26 Laboratory Results WBC 10.94 10^3/uL (4.4-10.8) H 01/23/20 19: RBC 4.02 10^6/uL (3.93-5.22) 01/23/20 19: Hgb 11.6 g/dL (11.2-15.7) 01/23/20 19: Hct 36.0 % (36.0-46.0) 01/23/20 19: MCV 89.6 fL (80-95) 01/23/20 19: MCH 28.9 pg (27.0-33.0) 01/23/20 19: MCHC 32.2 % (32.0-36.0) 01/23/20 19: RDW 12.8 % (11.7-14.6) 01/23/20 19: Plt Count 227 10^3/uL (130-400) 01/23/20 19: MPV 10.1 fL (8.0-11.0) 01/23/20 19: Patient ABO/Rh O Positive 01/23/20 19: Antibody Screen Negative 01/23/20 19: Vital Signs Reviewed: Yes Subjective Interval history since last seen: Took ambien for sleep and has slept well. Received 3rd dose of misoprosol. Results Hemoglobin/Hematocrit: Hgb 11.6 g/dL (11.2-15.7) 01/23/20 19:27 Hct 36.0 % (36.0-46.0) 01/23/20 19:27 Abnormal Lab Findings: Abnormal Labs 01/23/20 19:27 WBC 10.94 H
[2020-01-24] MEDS: Oxytocin 10 UNITS/ML VIAL IM (08:19)
[2020-01-24 08:20] VITALS: BP 113/71; PULSE 70; RESP 19
[2020-01-24 08:32] VITALS: BP 116/78; PULSE 64; RESP 18; TEMP 36.5
[2020-01-24 08:40] VITALS: BP 119/64; PULSE 66
[2020-01-24 08:50] VITALS: BP 126/79; PULSE 64; RESP 19
--- NOTE | 2020-01-24 08:57 | OBVDS_ITS ---
Date of service: 01/24/20 Time of Service: 08:57 OB Labor/ Delivery Information Providers Nurse Talent Development Consultant: Daisy Hilario Nurse: Leticia Frank Nurse: Radha Hernandez Labor/Delivery Information Number of Babies in Womb: 1 Steroids Given: None Group Beta Strep: Negative Antibiotics Administered: No Rubella Status: Nonimmune Blood Type: O+ Varicella Immunity: Immune Medication in Delivery: 10 units pitocin IM Born En Route: No Maternal Complications: Other (precipitous delivery) Shoulder Dystocia: No Stages of Labor Placenta Cultured: No Placenta Status: Delivered Baby A Gender: Female Gestational Status: Term Score-1 Minute Interval(Baby A) Heart Rate-1 minute: Below 100 BPM Respiratory Effort- 1 minute: Slow Respiration/Weak Cry Muscle Tone-1 minute: Minimal Flexion/Extension Reflex Response-1 minute: Prompt Response Color-1 minute: Bluish Hands or Feet Score-5 Minute Interval(Baby A) Heart Rate- 5 minute: 100 BPM or Greater Respiratory Effort-5 minute: Spontaneous/Strong Cry Muscle Tone-5 minute: Active Movement Reflex Response-5 minute: Prompt Response Color-5 minute: Bluish Hands or Feet Note: Pt stated to her nurse she felt like pushing, CNM paged to room but pt delivered precipitously, attended by RN. CNM arrived to baby crying, pink, and on the pt's chest. Sterile drape placed under pt's buttocks, cord ceased pulsating and clamped, cut by FOB. [place] placenta delivered intact with 3VC, 10 units of pitocin given IM. Vulva, vagina and perineum inspected and found to be intact, fundus firm below umbilicus, min-mod rubra noted without clots, excellent family bonding. Baby A Delivery Delivery Method: Spontaneaous Presentation: Cephalic Cephalic Position: Vertex Breech Position: N/A Cord Description-Baby A: 3 Vessels Membrane Rupture: Spontaneous Amniotic Fluid: Clear Amniotic Fluid Amount: Small Amniotic Fluid Odor: Normal Estimated Blood Loss: 350 Delivery Outcome: Liveborn Disposition: Remains with Mother Procedure Procedures: Cord Blood Collection
[2020-01-24] MEDS: Hamamelis Leaf/Glycerin 100 EACH BOX PR (10:56)
[2020-01-24 12:48] LABS: COVID-19 RT-PCR UVMMC Result Negative (Negative)
[2020-01-24 13:44] VITALS: BP 136/87; PULSE 81; RESP 16
--- NOTE | 2020-01-24 14:30 | W.PM.OBPNV1 ---
Date of service: 01/24/20 Time of Service: 14:31 Assessment and Plan Assessment and plan (1) Routine follow-up: Status: Acute Assessment and plan: A: 7 hours PP Nml PP recovery on DOD Multipara with good support at home P: Peds has released the baby in favor of return outpt nursery visit tomorrow MMR vaccine prior to discharge Telehealth appt in 2 wks IUD insertion at 6 wk appt Discharge today, written instructions given to pt. Subjective Subjective Interval history: 6-7 hours , feeling well and requesting discharge to home. Has showered adn breastfed her baby without difficulty. Patient comments: Pain well controlled baby status: Doing well, Nursing well, Rooming in and Strong Bonding Observed [place] feeding status: Exclusively breast feeding Narrative: Pt states she has set up her house with prepared meals and lots of support from family for her to rest and recover at home, bathroom easily accessible from where she plans to rest/sleep. Plans to return to hospital for baby's 24 hr procedures tomorrow. Exam Physical Exam Vital signs: Temp Pulse Resp BP 97.7 F 81 16 136/87 01/24/20 08:32 01/24/20 13:44 01/24/20 13:44 01/24/20 13:44 Constitutional Constitutional: no acute distress and average body habitus Breast Exam Bilateral: Breast Exam: Normal and Soft Nipple Exam: Normal and Uninjured Respiratory Exam Respiratory Exam: Normal Cardiovascular Exam Cardiovascular Exam: Normal Fundal Exam Fundus: Below Umbilicus and Firm Exam Perineum: Intact Extremities Exam Extremity Exam: Normal Skin Exam Skin Exam: Normal Psychiatric Exam Psychiatric Exam: Normal Results Hemoglobin/Hematocrit: Hgb 11.6 g/dL (11.2-15.7) 01/23/20 19:27 Hct 36.0 % (36.0-46.0) 01/23/20 19:27 Abnormal Lab Findings: Abnormal Labs 01/23/20 19:27 WBC 10.94 H
[2020-01-24] MEDS: Measles, Mumps, & Rubella Vaccine 0.5 ML VIAL SC (14:41)
--- NOTE | 2020-01-24 15:00 | DSE_ITS ---
Date of service: 01/24/20 Time of Service: 17:01 DS: Diagnosis Discharge Diagnosis (1) Advanced maternal age (AMA) in : Status: Acute (2) Term delivered: Status: Acute Discharge Plan Disposition Patient Disposition: HOME Condition: Good Discharge Details Reason For Visit: IOL FOR AMA Admit Date/Time: 01/23/20 16:53 Admit Provider: Melissa Parekh Attending Provider: Melissa Parekh Primary Care Provider: MIGUEL GARCIA Hospital Course Hospital Course: Induction proceeded overnight, precipitously this morning, pr requesting discharge on day of delivery Home Meds and New Rx's Prescriptions: No Action prenat.vits,aruna,[id number] tablet 1 tab PO DAILY RF: 0 Flovent HFA 110 mcg/actuation HFA aerosol inhaler 2 puff IH BID RF: 0 Flonase Sensimist 27.5 mcg/actuation spray,suspension 1 spray MERLE PRN RF: 0 Discharge Instructions Additional Instructions: Telehealth appt for 2 wk CNM check, in-person visit in 6 weeks for PP check and Mirena IUD Insertion Stand Alone Forms: BC Instructions, NB [place] Instructions, BC Post Vaginal Deliver Activity:: Activity as Tolerated Equipment/Supplies:: No Equipment Needed Diet:: Normal Diet Discharge Orders Discharge Orders: Discharge Order (Routine); Ordered 01/24/20 Ordered By: Daisy Hilario OB:DS Summary Summary Vaginal Delivery Method: Spontaneaous Episiotomy Description: None Laceration Extension: N/A Contraception Discussed Contraception Discussed: Yes Contraceptive Plan: IUD (will schedule insertion for 6 weeks ), [place] Gender-Baby A: Female Status at Discharge Functional status at discharge: independent ambulation Overall status at discharge: patient is progressing back to baseline Mental Status: mental status grossly normal Speech and Movement: speech and movement normal Mood: congruent mood Affect: normal affect Exam Physical Exam Vital signs: Temp Pulse Resp BP 97.7 F 81 16 136/87 01/24/20 08:32 01/24/20 13:44 01/24/20 13:44 01/24/20 13:44 Constitutional Constitutional: no acute distress and average body habitus Breast Exam Bilateral: Breast Exam: Normal and Soft Respiratory Exam Respiratory Exam: Normal Cardiovascular Exam Cardiovascular Exam: Normal Fundal Exam Fundus: Below Umbilicus and Firm Exam Perineum: Intact Extremities Exam Extremity Exam: Normal Skin Exam Skin Exam: Normal Psychiatric Exam Psychiatric Exam: Normal [facility] Medical History (Updated 01/24/20 @ 15:01 by Daisy Hilario) Asthma Cervical scoliosis Childhood asthma Diverticulitis (01/06/13) Diverticulitis 01/2013 Eating disorder stress related Ovarian cyst Scoliosis of thoracic spine Wilcox Rods implanted age 17 Surgical History Colonoscopy - IV Sedation (12/22/14) Dr. Hermilo Vidal Wilcox rods/spine placed age 16/15 [facility] Family History (Updated 07/05/19 @ 13:14 by Faina Schulz CNM) Maternal Grandmother Diabetes Social History Smoking/Tobacco Use Status: Former Tobacco Use Alcohol Intake: former Drug use: Occasionally Substance use type: does not use and marijuana Do you feel safe in your relationship?: Yes History History 4 Para 3 Hx # Term Pregnancies 3 Multiple births 0 Hx # Pregnancies 0 Ectopic pregnancies 0 AB induced 1 Hx Number of Living Children 3 AB spontaneous 0 Past Pregnancies Del. Date GA/Weeks # Outcome Route Wgt Sex Labor Lgth Anesthes ia Location Prov Complic 10/31/00 40 No Successful vaginal 6 lb 11 oz Female 9 hrs [facility] 07/26/04 40 No Successful vaginal 6 lb 6 oz Female 4 hrs [facility] 09/19/18 39 No Successful vaginal 8 lb 11 oz Male 7 hrs. 45 min. Shruti Winn CNM Delivery Date: 10/31/00 VAVD failed, forceps for decreased FHT, cord around the neck Daisy Hilario Delivery Date: 07/26/04 no meds, no problems Daisy Hilario Delivery Date: 09/19/18 AMA, mild shoulder dystocia Shruti Winn DS: Data Vitals/I&O Vitals and I&O: Vital Signs Temperature 97.7 F 01/24/20 08:32 Pulse 81 01/24/20 13:44 Pulse Rhythm Regular 01/23/20 18:25 Respiratory Rate 16 01/24/20 13:44 Blood Pressure 136/87 01/24/20 13:44 Blood Pressure Mean 103 01/24/20 13:44 Oxygen Delivery Method Room Air 01/23/20 18:25 Oxygen Flow Rate 0 01/23/20 18:25 Pain Level 0 01/23/20 18:25 Intake & Output 01/23/20 01/24/20 01/24/20 23:59 11:59 23:59 Intake Total 600 / 600 Output Total 250 / 250 Balance 350 / 350 Weight 156 lb Intake: Oral 600 / 600 Output: Urine 250 / 250 Other: Urine Color Pale Data Completed and Pending Labs on day of discharge: Labs from last 24 hours 01/23/20 01/23/20 01/23/20 21:00 19:27 19:27 WBC 10.94 H RBC 4.02 Hgb 11.6 Hct 36.0 MCV 89.6 MCH 28.9 MCHC 32.2 RDW 12.8 Plt Count 227 MPV 10.1 COVID-19 PCR Negative Nasopharyn COVID-19 PCR Not Applicable Ref Test Perform Site [place] [facility] lab Patient ABO/Rh O Positive Antibody Screen Negative
--- NOTE | 2020-01-24 16:13 | OBVDS_ITS ---
Date of service: 01/24/20 Time of Service: 08:57 OB Labor/ Delivery Information Providers Doctor: Daisy Hilario Nurse Well Shooter: Daisy Hilario Nurse: Leticia Frank Nurse: Radha Hernandez Labor/Delivery Information Number of Babies in Womb: 1 Steroids Given: None Reason Steroids Not Administered: N/A Group Beta Strep: Negative Antibiotics Administered: No Rubella Status: Nonimmune Blood Type: O+ Varicella Immunity: Immune Medication in Delivery: 10 units pitocin IM Maternal Complications: Other (precipitous delivery) Shoulder Dystocia: No Note: Pt stated to her nurse she felt like pushing, CNM paged to room but pt delivered precipitously, attended by RN. CNM arrived to baby crying, pink, and on the pt's chest. Sterile drape placed under pt's buttocks, cord ceased pulsating and clamped, cut by FOB. [place] placenta delivered intact with 3VC, 10 units of pitocin given IM. Vulva, vagina and perineum inspected and found to be intact, fundus firm below umbilicus, min-mod rubra noted without clots, excellent family bonding. weight 3405 gms Stages of Labor Onset of Labor Date: 01/24/20 Complete Dilatation Date: 01/24/20 Complete Dilatation Time: 08:00 ROM Baby A: 01/24/20 ROM Baby A: 08:05 Infant Delivery Date-Baby A: 01/24/20 Infant Delivery Time-Baby A: 08:12 Placenta Delivery Date-Baby A: 01/24/20 Placenta Delivery Time-Baby A: 08:18 Placenta Cultured: No Placenta Status: Delivered Baby A Infant Gender: Female Gestational Status: Term weight: 7 lb 8.108 oz Score-1 Minute Interval(Baby A) Heart Rate-1 minute: Below 100 BPM Respiratory Effort- 1 minute: Slow Respiration/Weak Cry Muscle Tone-1 minute: Minimal Flexion/Extension Reflex Response-1 minute: Prompt Response Color-1 minute: Bluish Hands or Feet Total Score-1 minute: 6 Score-5 Minute Interval(Baby A) Heart Rate- 5 minute: 100 BPM or Greater Respiratory Effort-5 minute: Spontaneous/Strong Cry Muscle Tone-5 minute: Active Movement Reflex Response-5 minute: Prompt Response Color-5 minute: Bluish Hands or Feet Total Score- 5 minute: 9 Baby A Delivery Delivery Method: Spontaneaous Presentation: Cephalic Cephalic Position: Vertex Breech Position: N/A Cord Description-Baby A: 3 Vessels Membrane Rupture: Spontaneous Amniotic Fluid: Clear Amniotic Fluid Amount: Moderate Amniotic Fluid Odor: Normal Estimated Blood Loss: 350 Delivery Outcome: Liveborn Infant Disposition: Remains with Mother Procedure Procedures: Cord Blood Collection Shoulder Dystocia Delivery Times Delivery Date-Baby A: 01/24/20 Delivery Time-Baby A: 08:12
--- NOTE | 2020-01-24 17:04 | W.OBDELIVERY ---
Date of service: 01/24/20 Time of Service: 08:47 OB Labor/ Delivery Information Providers Doctor: Daisy Hilario Nurse Heel Washer Stringing Machine Operator: Shruti Winn Nurse: Leticia Frank Nurse: Radha Hernandez Labor/Delivery Information Number of Babies in Womb: 1 Steroids Given: None Reason Steroids Not Administered: N/A Group Beta Strep: Negative Antibiotics Administered: No Rubella Status: Nonimmune Blood Type: O+ Varicella Immunity: Immune Medication in Delivery: 10 units pitocin IM Maternal Complications: Other Shoulder Dystocia: No Note: Pt stated to her nurse she felt like pushing, CNM paged to room but pt delivered precipitously attended by RN. CNM arrived to baby crying, pink, and on the pt's chest. Sterile drape placed under pt's buttocks, cord ceased pulsating and clamped, cut by FOB. [place] placenta delivered intact with 3VC, 10 units of pitocin given IM. Vulva, vagina and perineum inspected and found to be intact, fundus firm below umbilicus, min-mod rubra noted without clots, excellent family bonding. weight 3405 gms Stages of Labor Onset of Labor Date: 01/24/20 Complete Dilatation Date: 01/24/20 Complete Dilatation Time: 08:00 ROM Baby A: 01/24/20 ROM Baby A: 08:05 Delivery Date-Baby A: 01/24/20 Delivery Time-Baby A: 08:12 Placenta Delivery Date-Baby A: 20 Placenta Delivery Time-Baby A: 08:18 Placenta Cultured: No Placenta Status: Delivered Baby A Infant Gender: Female Gestational Status: Term weight: 7 lb 8.108 oz Length-Baby A: 20 in Head Circumference-Baby A: 14 in Score-1 Minute Interval(Baby A) Heart Rate-1 minute: Below 100 BPM Respiratory Effort- 1 minute: Slow Respiration/Weak Cry Muscle Tone-1 minute: Minimal Flexion/Extension Reflex Response-1 minute: Prompt Response Color-1 minute: Bluish Hands or Feet Total Score-1 minute: 6 Score-5 Minute Interval(Baby A) Heart Rate- 5 minute: 100 BPM or Greater Respiratory Effort-5 minute: Spontaneous/Strong Cry Muscle Tone-5 minute: Active Movement Reflex Response-5 minute: Prompt Response Color-5 minute: Bluish Hands or Feet Total Score- 5 minute: 9 Baby A Delivery Delivery Method: Spontaneaous Presentation: Cephalic Cephalic Position: Vertex Breech Position: N/A Cord Description-Baby A: 3 Vessels Membrane Rupture: Spontaneous Amniotic Fluid: Clear Amniotic Fluid Amount: Moderate Amniotic Fluid Odor: Normal Estimated Blood Loss: 350 Delivery Outcome: Liveborn Disposition: Remains with Mother Procedure Procedures: Cord Blood Collection Shoulder Dystocia Delivery Times Date of Delivery of Head: 01/24/20 Time of Delivery of the Head: 08:10 Delivery Date-Baby A: 01/24/20 Infant Delivery Time-Baby A: 08:12 Head to Body Delivery Interval: 2 Verify No Fundal Pressure Applied Fundal Pressure: No Pressure Applied
--- NOTE | 2020-01-26 08:08 | NUR.NOTE ---
Late Entry for 01/24/2020. I was called to Sofia's room by Radha Hernandez RN with report of delivery would be soon. When I entered the Sofia's room she was on her hands and knees in the bed with caput showing. She was involuntarily pushing and saying the baby was coming. With one push the baby was , Sofia turned to her left side and pushed the baby's head out at 0810. Sofia closed her legs together and did not have an urge to push and was frantic. I tried calming her, open her legs, urging her to push. I asked Sofia's partner to hold her right leg while I placed Sofia's left foot on my right shoulder, encouraging her to hold her legs. While providing gentle downward traction on the baby's head, Sofia pushed once and delivered the baby, shoulders came easily at 0812. Infant responded to drying and tactile stimulation with 6 and 9 apgars.
== END 2020-01-24 15:40 | disposition home or self-care (01) | DRG 807 ==
PROVIDERS: Advanced Practice Midwife; Admitting Provider Obstetrics & Gynecology; PCP Nurse Practitioner Family; Visit Provider Obstetrics & Gynecology
DX: O62.3 Precipitate labor (principal); Z37.0 Single live birth; O09.523 Supervision of elderly multigravida, third trimester; Z3A.39 39 weeks gestation of pregnancy; Z28.3 Underimmunization status; Z67.40 Type O blood, Rh positive; Z23 Encounter for immunization
CPT/HCPCS: 85027; 86850; 86900; 86901; U0003; 59025; J2590; J3490

== ENCOUNTER 2020-03-22 13:47 | Outpatient (CLI) | payer MEDICAID, SELFPAY ==
--- NOTE | 2020-03-22 07:30 | DI.US_ITS ---
EXAM: US PELVIS CLINICAL HISTORY: difficult IUD insertion, confirm position,Z97.5. TECHNIQUE: Transabdominal pelvic ultrasound was performed using standard protocol. Patient declined transvaginal pelvic ultrasound. COMPARISON: None. FINDINGS: KIDNEYS: Kidneys are symmetric in size. No evidence of renal calculi. No evidence of hydronephrosis. No renal mass or cyst identified. UTERUS: Position: Anteverted. Size: 7.6 long by 3.8 AP by 7.2 transverse cm Endometrium: 0.4 cm. Normal for patient's menstrual status. IUD is in good position. Myometrium: Unremarkable. Cervix: Unremarkable. OVARIES: Right: 2.4 x 1.7 x 1.3 cm Cyst or mass: None. Left: 2.2 x 1.8 x 1.8 cm Cyst or mass: None. DOPPLER: Color: Symmetric and uniform flow to both ovaries. No hyperemia. Duplex: Normal ovarian arterial waveforms visualized. CUL-DE-SAC: Free fluid: None. Other: None. IMPRESSION: 1. Normal sonographic appearance of the kidneys. 2. Normal-appearing uterus with endometrial stripe within normal limits. 3. IUD is present and in good position. 4. Unremarkable bilateral ovaries. DATA REPOSITORY:
== END 2020-03-22 14:07 ==
PROVIDERS: PCP Nurse Practitioner Family; Visit Provider Advanced Practice Midwife
DX: Z97.5 Presence of (intrauterine) contraceptive device (principal)
CPT/HCPCS: 76856

== ENCOUNTER 2020-11-01 14:37 | Outpatient (REF) | payer BC, MEDICAID, SELFPAY | END 2020-11-01 14:38 | disposition home or self-care (01) | LOC: LBN 14:37 | PROVIDERS: PCP Nurse Practitioner Family; Visit Provider Physician Assistant Medical | DX: R30.0 Dysuria (principal) | CPT/HCPCS: 87077; 87086; 87186 ==

== ENCOUNTER 2020-11-20 02:42 | Inpatient (IN) | payer MEDICAID, SELFPAY ==
[2020-11-20] VITALS (18 sets, daily range): BP systolic 93–128; BP diastolic 47–80; PULSE 59–95; RESP 16–17; TEMP 36.3–37; O2SAT 92–97
--- NOTE | 2020-11-20 02:45 | DI.CT_ITS ---
Exam(s) CT ABDOMEN PELVIS W EXAM: CT ABDOMEN PELVIS W CLINICAL HISTORY: left sided abdominal pain, hx divertic. TECHNIQUE: Imaging Protocol: Axial computed tomography images with coronal and sagittal reformatted images were created and reviewed CONTRAST MATERIAL: Intravenous: Omnipaque 100cc Oral: None COMPARISON: CT CT CHEST PE CTA from 11/09/2019 FINDINGS: VISUALIZED LUNG BASES: Mild benign-appearing pleural base markings in left lung base. No pleural eff usions. ABDOMEN: There is small amount of ascites. LIVER: There are no focal hepatic lesions evident. However, there is mild dilatation of intrahepatic ducts noted. No intrahepatic abscess. CBD is not dilated. GALLBLADDER/BILIARY: No obvious gallbladder pathology. CBD is not dilated. PANCREAS: No evidence of pancreatic mass nor dilatation of the pancreatic duct. SPLEEN: Spleen is not enlarged. No obvious intrasplenic lesions. Splenic and portal veins are paten t. ADRENALS: There are no significant adrenal masses. KIDNEYS:No cysts evident. No solid renal masses. No calculi nor hydronephrosis.. ABDOMINAL AORTA: Abdominal aorta is not enlarged. LYMPH NODES:There is no retroperitineal nor paraaortic adenopathy. ABDOMINAL WALL: No evidence of significant anterior abdominal wall hernia. GI: The main finding here is significant edema inflammatory change region of junction of descending-l eft colon and sigmoid which is so seated with a few hyperdense diverticuli and most probably acute di verticulitis. This is severe with abundant surrounding mesenteric phlegmonous change and this patien t is at significant risk for developing abscess. There is also some fluid in the right adnexa right side of cul-de-sac PELVIS: GI: Appendix not seen. LYMPH NODES: There is no intrapelvic nor inguinal adenopathy. REPRODUCTIVE: T-shaped IUD is noted in the uterine cavity. URINARY BLADDER: No calculi nor obvious masses evident OSSEOUS: No significant osseous lesions. Fusion rods again noted in the thoracolumbar spine. IMPRESSION: 1. Findings are consistent with severe diverticulitis of the descending colon with abundant phlegmono us changes and this patient is at high risk for developing abscess. Close follow-up recommended incl uding repeat CT scan after appropriate clinical interval. 2. IUD is in satisfactory position within the uterine canal. 3. Other findings as above RADIATION DOSE DELIVERED: 740.5mGy.cm Total DLP DATA REPOSITORY: All CT scans at this facility are submitted to the National Radiology Data Registry (NRDR) Dose Index Registry (DIR) with the [employer] (A[employer]). RADIATION OPTIMIZATION: All CT scans at this facility use at least one of these dose optimization te chniques: automated exposure control; mA and/or kV adjustment per patient size (includes targeted exa ms where dose is matched to clinical indication); or iterative reconstruction.
--- NOTE | 2020-11-20 02:59 | ED.GENADUL_ITS ---
Discharge Plan Disposition Patient Disposition: [facility] INPATIENT Condition: Stable Discharge Details Clinical Impression: Diverticulitis Primary Care Provider: Judith Wilhelm ED Provider: Atif Thompson Home Meds and New Rx's Prescriptions: No Action Flovent HFA 110 mcg/actuation HFA aerosol inhaler 2 puff IH BID RF: 0 magnesium 200 mg tablet 200 mg PO DAILY RF: 0 Flonase Sensimist 27.5 mcg/actuation spray,suspension 1 spray MERLE PRN RF: 0 Mirena 20 mcg/24 hours (6 yrs) 52 mg intrauterine device 1 device intrauterine ONCE RF: 0 Medical Decision Making This is a 45-year-old female with past medical history of previous diverticulitis, asthma, intrauterine device, who presents today for evaluation of abdominal pain. Patient states that for the last 3 days she has had intermittent low back and abdominal pain. It initially started in her left flank, but now it appears to be on her left side. She states that this does feel similar to her previous diverticulitis. She does admit to mild dysuria and frequency. Of note 2-1/2 weeks ago she did have a urinary tract infection dates that she was treated with Keflex. She admits to vomiting, but no diarrhea. She did have a period recently which she states is slightly atypical for her but otherwise no continued vaginal no other complaints at this time. Differential at this time includes diverticulitis, less likely pyelonephritis. Symptoms appearing consistent with ovarian torsion. We will get a CT scan with contrast for evaluation of acute diverticulitis to rule out rupture. We will gently rehydrate, give pain medications, monitor closely and reassess. 4:45 AM Laboratory work-up shows an elevated white count of 16, left shift. Electrolytes stable, renal function good. Urinalysis unremarkable. CT scan results have returned and demonstrate evidence of acute diverticulitis of the descending colon without evidence of free air or abscess. Repeat exam demonstrated continued tenderness, patient was redosed with Dilaudid. Cipro and Flagyl were started. Did discuss risks and benefits of admission versus discharge, at this time patient would feel more comfortable staying overnight. I feel this is very reasonable given her pain, nausea, vomiting, notable diver ticulitis. We will contact the hospitalist for admission. 5:30 AM Discussed the case with Dr. Wen, he agrees with the assessment and plan. I have extensively reviewed the treatment plan and discharge instructions with the patient. I have addressed all patient concerns at this time. The patient was made aware of what symptoms to monitor for that would warrant a return to the emergency department. Discussed the plan with the patient, they demonstrate verbal understanding and agreement with our assessment and plan at this time. The documentation in this chart was dictated using [employer] dictation software. Please excuse any dictation errors. FINDINGS: Lungs: Lung bases are clear. Liver: Normal. No mass. Gallbladder and bile ducts: Normal. No calcified stones. No ductal dilation. Pancreas: Normal. No ductal dilation. Spleen: Normal. No splenomegaly. Adrenal glands: Normal. No mass. Kidneys and ureters: Kidneys enhance symmetrically. No renal stones or hydronephrosis. Stomach and bowel: Stomach and small bowel are unremarkable.Colonic diverticula. There is wall thickening and pericolonic inflammation involving the distal descending colon consistent with diverticulitis. Appendix: Appendix is not identified. Intraperitoneal space: Mild ascites. No abscess or free air seen. Vasculature: Unremarkable. No abdominal aortic aneurysm. Lymph nodes: Unremarkable. No enlarged lymph nodes. Urinary bladder: Unremarkable as visualized. Reproductive: There is an IUD in the uterine fundus. 1 cm left adnexal follicular cyst. Bones/joints: Stable 9 mm bone island in the right femoral neck. Scoliosis with Wilcox rods in the thoracic spine. Soft tissues: Unremarkable. IMPRESSION: Diverticulitis of the distal descending colon without evidence of free air or abscess. Thank you for allowing us to participate in the care of your patient. Dictated and Authenticated by: Rosa Carter MD 11/20/2020 4:34 AM Eastern Time ([place] & [place]) HPI General Date/Time Provider Initiated Documentation: 11/20/20 02:51 . HPI Narrative: This is a 45-year-old female with past medical history of previous diverticulitis, asthma, intrauterine device, who presents today for evaluation of abdominal pain. Patient states that for the last 3 days she has had intermittent low back and abdominal pain. It initially started in her left flank, but now it appears to be on her left side. She states that this does feel similar to her previous diverticulitis. She does admit to mild dysuria and frequency. Of note 2-1/2 weeks ago she did have a urinary tract infection dates that she was treated with Keflex. She admits to vomiting, but no diarrhea. She did have a period recently which she states is slightly atypical for her but otherwise no continued vaginal no other complaints at this time. Related Data Home Medications Medication Instructions Recorded Confirmed fluticasone furoate 27.5 1 spray MERLE PRN ml 08/13/18 11/20/20 mcg/actuation nasal spray,suspension fluticasone propionate 110 2 puff IH BID 12/27/19 11/20/20 mcg/actuation HFA aerosol inhaler magnesium 200 mg tablet 200 mg PO DAILY 03/07/20 11/20/20 levonorgestrel 20 mcg/24 hours (6 1 device INTRAUTERINE ONCE 03/16/20 11/20/20 yrs) 52 mg intrauterine device Allergies Allergy/AdvReac Type Severity Reaction Status Date / Time Sulfa (Sulfonamide Allergy Mild Verified 11/20/20 03:55 Antibiotics) morphine AdvReac Intermediate Verified 11/20/20 03:55 General Stated Complaint: Abd Prob AGNES: 3 Review of Systems All systems reviewed & are unremarkable except as noted in HPI and below PFSH Medical History Asthma Cervical scoliosis Childhood asthma Diverticulitis (01/06/13) Diverticulitis 01/2013 Eating disorder stress related Ovarian cyst Presence of IUD Scoliosis of thoracic spine Wilcox Rods implanted age 17 Surgical History Colonoscopy - IV Sedation (12/22/14) Dr. Hermilo Vidal Wilcox rods/spine placed age [age] [facility] Family History Maternal Grandmother Diabetes Social History Smoking/Tobacco Use Status: Former Tobacco Use Smoking risk assessment performed?: Yes Alcohol Intake: former Drug use: Occasionally Substance use type: marijuana Do you feel safe at home: Yes Do you feel safe in your relationship?: Yes History History 5 Para 4 Hx # Term Pregnancies 4 Multiple births 0 Hx # Pregnancies 0 Ectopic pregnancies 0 AB induced 1 Hx Number of Living Children 4 AB spontaneous 0 Past Pregnancies Del. Date GA/Weeks # Outcome Route Wgt Sex Labor Lgth Anesthes ia Location Prov Complic 10/31/00 40 No Successful vaginal 3033.399 g Female 9 hrs [facility] 07/26/04 40 No Successful vaginal 2891.651 g Female 4 hrs [facility] 09/19/18 39 No Successful vaginal 3940.584 g Male 7 hrs. 45 min. Shruti white,CNM 01/24/20 40 No Successful vaginal 3405 g Female Tasha Hilario Delivery Date: 10/31/00 VAVD failed, forceps for decreased FHT, cord around the neck Daisy Hilario Delivery Date: 07/26/04 no meds, no problems Daisy Hilario Delivery Date: 09/19/18 AMA, mild shoulder dystocia Shruti Winn Delivery Date: 01/24/20 Pt delivered precipitously female infant over intact perineum. Juany Bowen Exam Narrative Exam Narrative: 1.Const: Well-nourished, Well-developed, appearing stated age 2.Eyes: PERRL, no conjunctival injection, and symmetrical lids. 3.ENT: Atraumatic external nose and ears. Moist MM. Neck: Symmetric, trachea midline, No thyromegaly. 4.CVS: +S1/S2, No murmurs or gallops. Peripheral pulses 2+ and equal in all extremities. Brisk capillary refill in all extremities. 5.RESP: Unlabored respiratory effort. Clear to auscultation bilaterally. No w heezes rales or rhonchi 6.GI: Soft, nondistended, mild to moderate left-sided flank pain. Palpation in the right side of her abdomen with pain over on the left side of the abdomen. No pain or McBurney's point, negative Penny sign, no pelvic tenderness. Mild left CVA tenderness is present. 7.MSK: Normocephalic/Atraumatic, Extremities w/o deformity or ttp No cyanosis or clubbing, Normal movement of all extremities 8.Skin: Warm, Dry. No rashes or lesions. 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 Sensation grossly intact, no focal neurologic deficits. 10.Psych: (AAO) x3. Appropriate mood and affect Course Vital Signs Vital signs: Vital Signs Temperature 36.9 C 11/20/20 02:49 Pulse 95 H 11/20/20 02:49 Respiratory Rate 17 11/20/20 02:49 Blood Pressure 128/79 07/19/21 02:49 Pulse Oximetry 97 11/20/20 02:49 Temperature 36.9 C 11/20/20 02:49 Temperature Source Temporal Artery Scan 11/20/20 02:49 Pulse 95 H 11/20/20 02:49 Respiratory Rate 17 11/20/20 02:49 Respiratory Effort Non-Labored 11/20/20 02:54 Blood Pressure 128/79 11/20/20 02:49 Blood Pressure Position Sitting 11/20/20 02:49 Pulse Oximetry 97 11/20/20 02:49 Oxygen Delivery Method Room Air 11/20/20 02:49 Oxygen Flow Rate 0 11/20/20 02:49 Pain Level 4 11/20/20 02:49 Lab/Test Results Lab/Test Results: POC- Test(urine) Negative
[2020-11-20 03:01] LABS: Bilirubin Negative (Negative); Blood Negative (Negative); Clarity Clear (Clear); Glucose Negative (Negative); Ketones Trace mg/dL (Negative); Leukocyte Esterase Small (Negative); Nitrite Negative (Negative); Urobilinogen 0.2 EU/dL (Up TO 0.2); pH 7.5 (5-8)
[2020-11-20 03:05] LABS: Bacteria Few HPF (Negative); C & S Indicated? Yes; Casts Negative LPF (Negative); Crystals Negative HPF (Negative); Epithelial Cells Few HPF (Negative); Mucus Negative (Negative); RBC Negative HPF (0-2)
[2020-11-20] MEDS: Normal Saline 1,000 ML 1000 ML IV (03:06)
[2020-11-20] MEDS: Ondansetron 4 MG/2 ML VIAL IVP ×3 (03:08→17:06)
[2020-11-20] MEDS: HYDROmorphone 2 MG/ML VIAL 1 MG IVP ×2 (03:10→04:34)
[2020-11-20 03:19] LABS: Lactate 0.6 mmol/L (0.6-1.4)
[2020-11-20 03:25] LABS: Abs Immature Grans 0.04 10^3/uL (0.0-0.06); Absolute Lymphocyte Count 1.32 10^3/uL (1.2-3.4); Basophils % 0.3; Eosinophils % 0.6; HCT 40.1 % (36.0-46.0); HGB 13.4 g/dL (11.2-15.7); Immature Grans % 0.3; Lymphocytes % 8.3; MCH 30.3 pg (27.0-33.0); MCHC 33.4 % (32.0-36.0); MCV 90.7 fL (80-95); MPV 9.3 fL (8.0-11.0); Monocytes % 8.7; Neutrophils % 81.8; Nucleated RBC 0 %; Platelet Count 306 10^3/uL (130-400); RBC 4.42 10^6/uL (3.93-5.22); WBC 15.91 10^3/uL (4.4-10.8)
[2020-11-20 03:26] LABS: Absolute Basophil Count 0.05 10^3/uL (0.0-0.2); Absolute Monocyte Count 1.38 10^3/uL (0.1-0.8); Absolute Neutrophil Count 13.01 10^3/uL (1.2-6.7)
[2020-11-20 03:36] LABS: ALT 15 U/L (14-59); AST 11 U/L (15-37); Albumin 3.8 g/dL (3.4-5.0); Alkaline Phosphatase 66 U/L (46-116); Anion Gap 8.5 mmol/L (3-11); BUN 6 mg/dL (7-18); CO2 24.5 mmol/L (21.0-32.0); CREATININE 0.6 mg/dL (0.55-1.02); Calcium 8.6 mg/dL (8.5-10.1); Chloride 104 mmol/L (98-107); Glucose 110 mg/dL (74-106); Sodium 137 mmol/L (136-145); Total Protein 7.2 g/dL (6.4-8.2)
[2020-11-20] MEDS: Omnipaque 350 MG/ML 100 ML BTL IJ (03:53)
[2020-11-20] MEDS: Normal Saline Flush 10 ML SYR IVP ×3 (03:55→17:11)
[2020-11-20] MEDS: Normal Saline - Diluent 50 ML VIAL IV (03:55)
--- NOTE | 2020-11-20 04:34 | DI.VRAD_ITS ---
PROCEDURE INFORMATION: Exam: CT Abdomen And Pelvis With Contrast Exam date and time: 11/20/2020 3:00 AM Age: 45 years old Clinical indication: Abdominal pain and other: L flank; Localized; Prior surgery; Surgery date: 6+ months; Surgery type: Wilcox rods; Patient HX: Left sided abdominal pain, HX divertic TECHNIQUE: Imaging protocol: Computed tomography of the abdomen and pelvis with contrast. Radiation optimization: All CT scans at this facility use at least one of these dose optimization techniques: automated exposure control; mA and/or kV adjustment per patient size (includes targeted exams where dose is matched to clinical indication); or iterative reconstruction. Contrast material: OMNIPAQIE 350; Contrast volume: 87 ml; Contrast route: INTRAVENOUS (IV); COMPARISON: CT ABD PELVIS WITH CONTRAST 12/13/2016 1:09 PM FINDINGS: Lungs: Lung bases are clear. Liver: Normal. No mass. Gallbladder and bile ducts: Normal. No calcified stones. No ductal dilation. Pancreas: Normal. No ductal dilation. Spleen: Normal. No splenomegaly. Adrenal glands: Normal. No mass. Kidneys and ureters: Kidneys enhance symmetrically. No renal stones or hydronephrosis. Stomach and bowel: Stomach and small bowel are unremarkable.Colonic diverticula. There is wall thickening and pericolonic inflammation involving the distal descending colon consistent with diverticulitis. Appendix: Appendix is not identified. Intraperitoneal space: Mild ascites. No abscess or free air seen. Vasculature: Unremarkable. No abdominal aortic aneurysm. Lymph nodes: Unremarkable. No enlarged lymph nodes. Urinary bladder: Unremarkable as visualized. Reproductive: There is an IUD in the uterine fundus. 1 cm left adnexal follicular cyst. Bones/joints: Stable 9 mm bone island in the right femoral neck. Scoliosis with Wilcox rods in the thoracic spine. Soft tissues: Unremarkable. IMPRESSION: Diverticulitis of the distal descending colon without evidence of free air or abscess. Dictated and Authenticated by: Rosa Carter MD. Ordering:TATYANA Srivastava MD
[2020-11-20] MEDS: CIPROFLOXACIN 400 MG/200 ML BAG 200 MG IVPB ×2 (04:44→16:38)
--- NOTE | 2020-11-20 05:22 | HPE_ITS ---
Date of service: 11/20/20 Time of Service: 05:22 Assessment and Plan Assessment and plan (1) Diverticulitis: Status: Chronic Assessment and plan: Uncomplicated diverticulitis. Will continue Cipro and Flagyl; place NPO with IVF; prn analgesics and antiemetics. History of Present Illness History of Present Illness Chief Complaint: abd pain Narrative: 45 female with h/o diverticulitis. Presents with one day of primarily LLQ pain, similar to prior episode diverticulitis. In ER findings of note for absence of fever (patient does report she felt hot and cold at home), tenderness LLQ, leukocytosis (14) and CT demonstrating findings c/w diverticulitis in descending colon, with no abcess or perforation. Patient given IV Cipro and Flagyl along with Dilaudid 1 mg x two and Zofran. Is admitted for further management. States pain is under control at presnt. As above no documentd fever. Does report BM yesterday, but felt like incomplete evacuation. Review of Systems All systems reviewed & are unremarkable except as noted in HPI and below PFSH Medical History Asthma Cervical scoliosis Childhood asthma Diverticulitis (01/06/13) Diverticulitis 01/2013 Eating disorder stress related Ovarian cyst Presence of IUD Scoliosis of thoracic spine Wilcox Rods implanted age 17 Surgical History Colonoscopy - IV Sedation (12/22/14) Dr. Hermilo Vidal Wilcox rods/spine placed age [age] [facility] Family History Maternal Grandmother Diabetes Social History Smoking/Tobacco Use Status: Former Tobacco Use Smoking risk assessment performed?: Yes Alcohol Intake: former Drug use: Occasionally Substance use type: marijuana Do you feel safe at home: Yes Do you feel safe in your relationship?: Yes History History 5 Para 4 Hx # Term Pregnancies 4 Multiple births 0 Hx # Pregnancies 0 Ectopic pregnancies 0 AB induced 1 Hx Number of Living Children 4 AB spontaneous 0 Past Pregnancies Del. Date GA/Weeks # Outcome Route Wgt Sex Labor Lgth Anesthes ia Location Prov Complic 10/31/00 40 No Successful vaginal 3033.399 g Female 9 hrs [facility] 07/26/04 40 No Successful vaginal 2891.651 g Female 4 hrs [facility] 09/19/18 39 No Successful vaginal 3940.584 g Male 7 hrs. 45 min. Shruti SURESH Winn 01/24/20 40 No Successful vaginal 3405 g Female Tasha Hilario Delivery Date: 10/31/00 VAVD failed, forceps for decreased FHT, cord around the neck Daisy Hilario Delivery Date: 07/26/04 no meds, no problems Daisy Hilario Delivery Date: 09/19/18 AMA, mild shoulder dystocia Shruti Winn Delivery Date: 01/24/20 Pt delivered precipitously female infant over intact perineum. Juany Bowen Meds Allergies and Home Medications Allergies Allergy/AdvReac Type Severity Reaction Status Date / Time Sulfa (Sulfonamide Allergy Mild Verified 11/20/20 03:55 Antibiotics) morphine AdvReac Intermediate Verified 11/20/20 03:55 Home Medications Medication Instructions Recorded Confirmed Type fluticasone furoate 27.5 1 spray MERLE PRN ml 08/13/18 11/20/20 History mcg/actuation nasal spray,suspension fluticasone propionate 110 2 puff IH BID 12/27/19 11/20/20 History mcg/actuation HFA aerosol inhaler magnesium 200 mg tablet 200 mg PO DAILY 03/07/20 11/20/20 History levonorgestrel 20 mcg/24 hours (6 1 device INTRAUTERINE ONCE 03/16/20 11/20/20 History yrs) 52 mg intrauterine device Exam Narrative Exam Narrative: 120/80, 83, 36.8, 17, 94% RA. HEENT unremarkable; neck supple; lungs clear; heart RRR; abdomen some guarding, moderate tenderness LLQ w/o rebound; extremities w/o edema; neuro Ox3, moves all 4s Results Labs Result diagrams: 11/20/20 03:11 11/20/20 03:11 Labs: Laboratory Results - last 24 hr 11/20/20 11/20/20 11/20/20 02:52 03:11 03:11 WBC RBC Hgb Hct MCV MCH MCHC RDW Plt Count MPV Immature Gran % Neutrophils % Lymphocytes % Monocytes % Eosinophils % Basophils % Nucleated RBC % Absolute Neutrophils Absolute Lymphocytes Absolute Monocytes Absolute Eosinophils Absolute Basophils VBG Lactate 0.6 Sodium 137 Potassium 4.0 Chloride 104 Carbon Dioxide 24.5 Anion Gap 8.5 BUN 6 L Creatinine 0.6 Estimated GFR/1.73 m2 >= 60.00 Glucose 110 H Calcium 8.6 Total Bilirubin 1.0 AST 11 L ALT 15 Alkaline Phosphatase 66 Total Protein 7.2 Albumin 3.8 Urine Color Yellow Urine Clarity Clear Urine pH 7.5 Ur Specific [place] 1.020 Urine Protein Negative Urine Ketones Trace H Urine Blood Negative Urine Nitrite Negative Urine Bilirubin Negative Urine Urobilinogen 0.2 Ur Leukocyte Esterase Small H Urine RBC Negative Urine WBC 3-5 Ur Epithelial Cells Few Urine Crystals Negative Urine Bacteria Few Urine Casts Negative Urine Mucus Negative Ur Culture Indicated? Yes Urine Glucose Negative 11/20/20 03:11 WBC 15.91 H RBC 4.42 Hgb 13.4 Hct 40.1 MCV 90.7 MCH 30.3 MCHC 33.4 RDW 12.0 Plt Count 306 MPV 9.3 Immature Gran % 0.3 Neutrophils % 81.8 Lymphocytes % 8.3 Monocytes % 8.7 Eosinophils % 0.6 Basophils % 0.3 Nucleated RBC % 0 Absolute Neutrophils 13.01 H Absolute Lymphocytes 1.32 Absolute Monocytes 1.38 H Absolute Eosinophils 0.10 Absolute Basophils 0.05 VBG Lactate Sodium Potassium Chloride Carbon Dioxide Anion Gap BUN Creatinine Estimated GFR/1.73 m2 Glucose Calcium Total Bilirubin AST ALT Alkaline Phosphatase Total Protein Albumin Urine Color Urine Clarity Urine pH Ur Specific [place] Urine Protein Urine Ketones Urine Blood Urine Nitrite Urine Bilirubin Urine Urobilinogen Ur Leukocyte Esterase Urine RBC Urine WBC Ur Epithelial Cells Urine Crystals Urine Bacteria Urine Casts Urine Mucus Ur Culture Indicated? Urine Glucose Last Vital Signs Temp 36.8 C 11/20/20 03:53 Pulse 83 11/20/20 03:53 Resp 17 11/20/20 03:53 BP 120/80 11/20/20 03:53 Pulse Ox 94 11/20/20 03:53
[2020-11-20] MEDS: Ondansetron 4 MG/2 ML VIAL (05:34)
[2020-11-20 05:39] LABS: Source Nasal/Nares
[2020-11-20] MEDS: metroNIDAZOLE 500 MG/100 ML BAG 100 MG IVPB ×4 (05:54→23:55)
[2020-11-20 06:29] LABS: COVID-19 PCR Negative (Negative)
--- OUTSIDE RECORDS SUMMARY | 2020-11-20 07:14 | XMS_ITS ---
:1975 Author Care Team Providers Name Role Phone [facility] Primary Care Provider [phone] Allergies Code Code System Name Reaction Severity Status Onset 7052 RxNorm Morphine Hallucinations ? Active ? Sulfa Hallucinations ? Active ? (Sulfonamide Antibiotics) Medications Name Status Start Date Stop Date ? ? Fluarix Quad [id number] (PF) 60 mcg (15 Active ? Not available mcg x 4)/0.5 mL IM syringe nitrofurantoin Active ? Not available monohydrate/macrocrystals 100 mg capsule Sophia-BE 0.35 mg tablet Completed ? 8 Active ? Not available tizanidine 4 mg tablet Completed ? 8 Problems Name Status Onset Date Source ? Unknown 02/05/2018 ? Procedures Date Name Performed by ? 02/05/2018 US, Obstetric, Transabdominal + [facility] Radiology (Internal) Transvaginal [address] [place] [address] (Work Place) 02/26/2018 US, Obstetric, 1St Trimester [facility] Radiology (Internal) [address] [place] [address] (Work Place) 02/27/2018 US, Obstetric, Transabdominal + [facility] Radiology (Internal) Transvaginal [address] [place] [address] (Work Place) 03/23/2018 US, Obstetric, Limited [facility] Radiology (Internal) [address] [place] [address] (Work Place) 03/30/2018 US, Obstetric, Transabdominal + [facility] Radiology (Internal) Transvaginal [address] [place] [address] (Work Place) Results Lab Results Date Name Specimen Result Interpretation Description Value Range Status Address ? 04/30/2018 Urinalysis, UR - UA-color pale pale Final Wana Dipstick, yellow yellow [facility] ital Lab (Internal) : [address] ? ? UR ABNOR UA-appear hazy clear Final [facility] L ab (Internal) : [address] ? ? UR - UA-spec 1.010 1.003-1.0 Final [place] Grav [address] [place] [address] L ab (Internal) : [address] ? ? UR - UA-pH 7.5 [pH] 4.6-8.0 Final Wana [pH] [facility] L ab (Internal) : [address] ? ? UR ABNOR UA-leuk Est large negative Final No rth [facility] ab (Internal) : [address] ? ? UR - UA-nitrite negative negative Final N [facility] L ab (Internal) : [address] ? ? UR - UA-prot negative negative Final [facility] ab (Internal) : [address] ? ? UR - UA-gluc negative negative Final [facility] ab (Internal) : [address] ? ? UR - UA-ketone negative negative [facility] [address] ? ? UR - UA-urobil normal normal Final [facility] ab (Internal) : [address] ? ? UR - UA-bili negative negative Final [facility] ab (Internal) : [address] ? ? UR - UA-blood negative negative Final [facility] ab (Internal) : [address] 04/30/2018 Urinalysis, UR ABNOR UA-WBC 10-25 0-3 [hpf] [place] [facility] MAL [hpf] Count [facility] L ab (Internal) : [address] ? ? UR - UA-RBC 0-2 [hpf] 0-2 [hpf] Final [facility] ab (Internal) : [address] ? ? UR ABNOR UA-bacteria few [hpf] none seen Final [facility] [hpf] [facility] ab (Internal) : [address] ? ? UR ABNOR UA-epitheli few [hpf] none seen Final [facility] al [hpf] [facility] ab (Internal) : [address] ? ? UR ABNOR UA-mucus rare [hpf] none seen Final [facility] [hpf] [facility] ab (Internal) : [address] ? ? UR ABNOR Yeast, UA few [hpf] none seen Final [facility] [hpf] [facility] ab (Internal) : [address] 04/30/2018 Culture UR - Final microbiolo ? Final N orth ([place] [facility] results Count ry Count), Hospital Lab Urine (Internal) : [address] 04/30/2018 Urinalysis, ? Color Yellow ? ? P _ob/Division Supervisor: 81 Dipstick, Medical Reflex Micro Vill [facility] ? ? ? Appearance Cloudy ? ? P_ob/ Division Supervisor: 81 [facility] ? ? ? Glucose Normal ? ? P_ob/Division Supervisor : 81 [facility] ? ? ? Ketones Negative ? ? P_ob/G yn: 81 [facility] ? ? ? Specific 1.020 ? ? P_ob/Gy n: 81 [place] [facility] ? ? ? Blood Small ? ? P_ob/Division Supervisor: 81 [facility] ? ? ? Ph 7.5 ? ? P_ob/Division Supervisor: 81 [facility] ? ? ? Protein 1+ ? ? P_ob/Division Supervisor : 81 [facility] ? ? ? Nitrite negative ? ? P_ob/G yn: 81 [facility] ? ? ? Leukocyte Large ? ? P_ob/G yn: 81 E[place] [facility] 04/25/2018 Urinalysis, UR - UA-color yellow pale Final [place] Dipstick, yellow [facility] ital Lab (Internal) : [address] ? ? UR - UA-appear clear clear Final [facility] ab (Internal) : [address] ? ? UR - UA-spec >=1.030 1.003-1.0 Final Nort h Grav 35 [facility] ab (Internal) : [address] ? ? UR - UA-pH 5.5 [pH] 4.6-8.0 Final North [pH] [facility] ab (Internal) : [address] ? ? UR ABNOR UA-leuk Est small negative Final No rth MAL [facility] ab (Internal) : [address] ? ? UR - UA-nitrite negative negative Final N orth [facility] ab (Internal) : [address] ? ? UR - UA-prot negative negative Final Nort [facility] ab (Internal) : [address] t ? ? UR - UA-gluc negative negative Final Nort [facility] ab (Internal) : [address] t ? ? UR ABNOR UA-ketone trace negative Final Nort h [facility] ab (Internal) : [address] t ? ? UR - UA-urobil normal normal Final [facility] (Internal) : [address] ? ? UR - UA-bili negative negative Final Nort [facility] ab (Internal) : [address] ? ? UR - UA-blood negative negative Final [facility] ab (Internal) : [address] 04/25/2018 Urinalysis, UR ABNOR UA-WBC 3-5 [hpf] 0-3 [hpf] F inal North Microscopic MAL Count [facility] North ab (Internal) : [address] ? ? UR - UA-RBC 0-2 [hpf] 0-2 [hpf] Final [facility] ab (Internal) : [address] ? ? UR ABNOR UA-bacteria few [hpf] none seen Final North MAL [hpf] [facility] ab (Internal) : [address] ? ? UR ABNOR UA-epitheli few [hpf] none seen Final North MAL al [hpf] [facility] ab (Internal) : [address] ? ? UR ABNOR UA-mucus few [hpf] none seen Final N orth MAL [hpf] [facility] ab (Internal) : [address] 04/25/2018 Culture UR - Final microbiolo ? Final N orth ([place] gy results Count ry Count), Hospital Lab Urine (Internal) : [address] 04/25/2018 Alpha MISC - Pamg-1 negative ? Final Nor th Microglobuli (Amnisure) [facility] n-1, Hospital L Placental (Car Salesman al): (Pamg-1), [address] Qualitative, Kurt Wood Vaginal Fluid 03/02/2018 Chlamydia - Catp sent to ? Final No rth Trachomatis reference Co untry + Neisseria lab [facility] Lab Gonorrhea (Car Salesman al): rRNA, QL, [address] Gen[address] rt ? ? - Gcatp sent to ? Final North reference [facility] (Internal) : [address] ? ? - Specimen see ? Final Wana Description comments [facility] Hospital ab (Internal) : [address] ? ? - Chlamydia negative ? Final Nort h Result [facility] (Internal) : [address] ? ? - GC Result negative ? Final Nort h [facility] ab (Internal) : [address] 03/02/2018 Pap Test, MISC - Hpv see report ? Final [facility] (Internal[facility] : [address] ? ? MISC - Pap see report ? Final [facility] ab (Internal) : [address] ? ? MISC - Report (added) ? Correcte North results d Country [facility] ab (Internal) : [address] 02/20/2018 Cbc BLD High Wbc 10.6 5.0-10.0 Final Nort h 10*3/uL 10*3/uL [facility] Hospital ab (Internal) : [address] ? ? BLD Low Rbc 4.04 4.10-5.30 Final North 10*6/uL 10*6/uL [facility] ab (Internal) : [address] ? ? BLD - Hgb 12.4 g/dL 12.0-16.0 Final Nort h g/dL [facility] ab (Internal) : [address] ? ? BLD - Hct 37.2 % 37.0-47.0 Final [facility] Hospital L ab (Internal) : [address] ? ? BLD - Mcv 92.1 fL 80.0-96.0 Final [facility] Hospital L ab (Internal) : [address] ? ? BLD - Mch 30.7 pg 26.0-32.0 Final Wana pg [facility] Hospital L ab (Internal) : [address] ? ? BLD - Mchc 33.3 g/dL 31.0-35.0 Final Nort h g/dL [facility] Hospital L ab (Internal) : [address] ? ? BLD - Plt 264 130-450 Final Wana 10*3/uL 10*3/uL [facility] L ab (Internal) : [address] ? ? BLD - Rdw 11.7 % 11.5-14.5 Final [facility] L ab (Internal) : [address] 02/20/2018 Culture UR - Final microbiolo ? Final N orth ([place] gy results Count ry Count), Hospital Lab Urine (Internal) : [address] 02/20/2018 Urinalysis, UR - UA-color pale pale Final [facility] yellow yellow [facility] L ab (Internal) : [address] ? ? UR - UA-appear clear clear Final [facility] L ab (Internal) : [address] ? ? UR - UA-spec <=1.005 1.003-1.0 Final Nort h Grav 35 [facility] Hospital L ab (Internal) : [address] ? ? UR - UA-pH 6.0 [pH] 4.6-8.0 Final Wana [pH] [facility] L ab (Internal) : [address] ? ? UR - UA-leuk Est negative negative Final [facility] L ab (Internal) : [address] ? ? UR - UA-nitrite negative negative Final N orth [facility] L ab (Internal) : [address] ? ? UR - UA-prot negative negative Final [facility] L ab (Internal) : [address] ? ? UR - UA-gluc negative negative Final Nort [facility] ab (Internal) : [address] ? ? UR - UA-ketone negative negative Final No rth [facility] ab (Internal) : [address] ? ? UR - UA-urobil normal normal Final [facility] ab (Internal) : [address] ? ? UR - UA-bili negative negative [facility] [address] ? ? UR - UA-blood negative negative Final [facility] ab (Internal) : [address] ? ? UR - UA-WBC 0-3 [hpf] 0-3 [hpf] Final [facility] ab (Internal) : [address] ? ? UR - UA-RBC 0-2 [hpf] 0-2 [hpf] Final [facility] ab (Internal) : [address] ? ? UR ABNOR UA-bacteria few [hpf] none seen Final [facility] [hpf] [facility] ab (Internal) : [address] ? ? UR ABNOR UA-epitheli moderate none seen Final [facility] al [hpf] [hpf] [facility] ab (Internal) : [address] ? ? UR - UA-mucus none seen none seen Final N orth [hpf] [hpf] [facility] ab (Internal) : [address] 02/20/2018 Type + BLD - Abo O ? Final [facility] ab (Internal) : [address] ? ? BLD - Rh positive ? Final [facility] ab (Internal) : [address] ? ? BLD - Ab Scrn negative negative Final [facility] ab (Internal) : [address] 02/20/2018 RPR (Rapid BLD - Obs RPR non-reacti non-react Final [facility] Reagin), Hospital Lab Serum (Internal) : [address] 02/20/2018 Rubella Ab, BLD - Obs Rbla positive positive F inal [place] Serum [facility] Hospital L ab (Internal) : [address] 02/20/2018 HBsAg S - Hep B negative negat Final Nort h (Hepatitis B Surface Ag [facility] Surface Ag), Hosp ital Lab Serum (Internal) : [address] 02/20/2018 HIV (1+2) Ab S - HIV 1/2 negative negat Fin [facility] Screen, Antigen and Coun try Serum Antibody Hospital Lab (Internal) : [address] 02/20/2018 Hepatitis C S - Hep C Ab W negative negat F [facility] Virus Ab, Rfx PCR Countr [facility] Hospital L ab (Internal) : [address] 02/20/2018 Aneuploidy S - Result see below ? Final Wana Risk, Summary Country Chromosome Hospit al Lab Specific (Interna l): Circulating [address] Cell Free Gagan Wood (Ccf) DNA, Maternal Serum ? ? S - Result see below ? Final [facility] Hospital L ab (Internal) : [address] ? ? S - Interpretat see below ? Final N orth ion [facility] Hospital L ab (Internal) : [address] ? ? S - Reason for advanced ? Final Nor th Referral maternal Countr y age Hospital L ab (Internal) : [address] ? ? S - Specimen blood ? Final [facility] L ab (Internal) : [address] ? ? S - Maternal 171.45cm ? Final [place] Height [facility] (Inches) Hospital Lab (Internal) : [address] ? ? S - Maternal 134lbs ? Final [place] Weight [facility] (Pounds) Hospital Lab (Internal) : [address] ? ? S - Gestational 9 ? Final Nort h Age (Weeks) Count Hospital L ab (Internal) : [address] ? ? S - Gestational 4 ? Final Nort h Age (Days) Countr Hospital L ab (Internal) : [address] ? ? S - Method Used LMP ? Final Nort h to Determine Coun try Gest Age Hospital Lab (Internal) : [address] ? ? S - Number of 1 ? Final [facility] Hospital L ab (Internal) : [address] [place] ? ? S - Method see below ? Final [facility] ab (Internal) : [address] [place] [address] ? ? S - Disclaimer see below ? Final No rth [facility] (Internal) : [address] ? ? S - Released by sofia Rich ? [facility] (Internal) : [address] 02/05/2018 ? Hcg positive ? ? P _ob/Division Supervisor: 81 Test, Urine Medic al [facility] Past Encounters None recorded. Social History Tobacco Smoking Status Former Smoker Vaccine List None recorded. Plan of Care Reminders Provider Appointments None ? ? recorded. Lab None ? ? recorded. Referral None ? ? recorded. Procedures None ? ? recorded. Surgeries None ? ? recorded. Imaging None ? ? recorded. Vitals 04/30/2018 09:20AM OB 20 Weight Blood Pressure 67.09 kg 122/70 mm[Hg] 03/30/2018 02:20PM OB 20 Weight Blood Pressure 64.58 kg 122/70 mm[Hg] 03/02/2018 01:50PM New OB Height Weight BMI Blood Pressure 171.45 cm 63.91 kg 21.7 kg/m2 122/70 mm[Hg] 02/05/2018 03:10PM New Patient 30 Height Weight BMI 171.45 cm 61.1 kg 20.8 kg/m2
[2020-11-20] MEDS: HYDROmorphone 2 MG/ML VIAL IVP ×3 (07:26→21:36)
[2020-11-20] MEDS: Lactated Ringers 1,000 ML 150 ML IV ×2 (07:29→15:10)
[2020-11-20] MEDS: ACETAMINOPHEN 1,000 MG/100 ML BTL 400 MG IVPB (07:31)
[2020-11-20] MEDS: Normal Saline 500 ML IV (12:41)
[2020-11-21] MEDS: Lactated Ringers 1,000 ML 100 ML IV (00:02)
[2020-11-21] MEDS: Normal Saline Flush 10 ML SYR IVP ×2 (03:58→08:36)
[2020-11-21] MEDS: Ondansetron 4 MG/2 ML VIAL IVP (03:58)
[2020-11-21] MEDS: CIPROFLOXACIN 400 MG/200 ML BAG 200 MG IVPB (03:58)
[2020-11-21] MEDS: metroNIDAZOLE 500 MG/100 ML BAG 100 MG IVPB (05:40)
[2020-11-21 08:04] LABS: Abs Immature Grans 0.03 10^3/uL (0.0-0.06); Absolute Basophil Count 0.02 10^3/uL (0.0-0.2); Absolute Eosinophil Count 0.12 10^3/uL (0.0-0.7); Absolute Lymphocyte Count 1.04 10^3/uL (1.2-3.4); Absolute Monocyte Count 0.77 10^3/uL (0.1-0.8); Absolute Neutrophil Count 6.43 10^3/uL (1.2-6.7); Basophils % 0.2; Eosinophils % 1.4; HCT 34.3 % (36.0-46.0); HGB 11.1 g/dL (11.2-15.7); Immature Grans % 0.4; Lymphocytes % 12.4; MCH 30.5 pg (27.0-33.0); MCHC 32.4 % (32.0-36.0); MCV 94.2 fL (80-95); MPV 9.4 fL (8.0-11.0); Monocytes % 9.2; Neutrophils % 76.4; Nucleated RBC 0 %; Platelet Count 203 10^3/uL (130-400); RBC 3.64 10^6/uL (3.93-5.22); RDW 12.3 % (11.7-14.6); WBC 8.41 10^3/uL (4.4-10.8)
[2020-11-21 08:30] VITALS: BP 123/77; PULSE 88; RESP 16; TEMP 37.4; O2SAT 98
[2020-11-21] MEDS: ACETAMINOPHEN 1,000 MG/100 ML BTL 400 MG IVPB (08:34)
--- NOTE | 2020-11-21 09:02 | PDOC.CMIN ---
- If Service Date Differs Date of service: 11/21/20 Time of Service: 09:02 Care Management Initial Assess REASON FOR HOSPITALIZATION:: Diverticulitis PAST MEDICAL HISTORY/PAST SURGICAL HISTORY:: Asthma. Cervical scoliosis. Childhood asthma. Diverticulitis (01/06/13). Diverticulitis. Colonoscopy - IV Sedation (12/22/14). Dr. Hermilo Vidal. Wilcox rods/spine. placed age [age] [facility]. 01/2013. Eating disorder. stress related. Ovarian cyst. . Presence of IUD. Scoliosis of thoracic spine. Wilcox Rods implanted age 17 PREVIOUS FUNCTIONAL STATUS/SOCIAL/FAMILY SUPPORTS:: Resides in [facility] at baseline. CURRENT FUNCTIONAL STATUS:: Prepared for discharge and advocating for leaving; MD to see this morning with likely discharge home.
--- NOTE | 2020-11-21 09:09 | DSE_ITS ---
Date of service: 11/21/20 Time of Service: 09:09 DS: Diagnosis Discharge Diagnosis (1) Diverticulitis: Status: Chronic Discharge Plan Disposition Patient Disposition: HOME Condition: Good Discharge Details Reason For Visit: Diverticulitis Admit Date/Time: 11/20/20 05:32 Admit Provider: Ervin Wen Attending Provider: Ervin Wen Primary Care Provider: Judith Wilhelm Hospital Course Hospital Course: This is a 45 yo female with a PMH of diverticulitis x 3 episodes, asthma. She presented with one day of primarily LLQ pain, similar to prior episode diverticulitis. In ER findings of note for absence of fever (patient does report she felt hot and cold at home), tenderness LLQ, leukocytosis (14) and CT demonstrating findings c/w diverticulitis in descending colon, with no abscess or perforation. Patient given IV Cipro and Flagyl along with Dilaudid 1 mg x two and Zofran. She was given a dose of phenergan that she endorsed was helpful. Her pain improved and her WBC count normalized. She tolerated clear liquids. She felt she was ready to discharge on oral Flagyl and Cipro. She requests Zofran for nausea prn and phenergan for nausea prn at night if needed. She has taken a probiotic in the past after finishing a course of antibiotics for diverticulitis; suggested she repeat this and/or eat yogurt 3x/daily. Follow up with her PCP in 1-2 weeks. Home Meds and New Rx's Prescriptions: New metronidazole [Flagyl] 500 mg tablet 500 mg PO TID Qty: 21 RF: 0 ciprofloxacin HCl 500 mg tablet 500 mg PO BID Qty: 14 RF: 0 ondansetron HCl [Zofran] 4 mg tablet 4 mg PO Q8H PRN (Reason: nausea and vomiting) Qty: 10 RF: 0 promethazine 25 mg tablet 25 mg PO QHS PRNQty: 7 RF: 0 Continued Flovent HFA 110 mcg/actuation HFA aerosol inhaler 2 puff IH BID RF: 0 magnesium 200 mg tablet 200 mg PO DAILY RF: 0 Flonase Sensimist 27.5 mcg/actuation spray,suspension 1 spray MERLE PRN RF: 0 Mirena 20 mcg/24 hours (6 yrs) 52 mg intrauterine device 1 device intrauterine ONCE RF: 0 Discharge Instructions Instructions: Diverticulitis (DC) Stand Alone Forms: Nursing Discharge Form Referrals: Judith Wilhelm [Primary Care Provider] - 11/29/20 3:00 am Activity:: Activity as Tolerated Equipment/Supplies:: No Equipment Needed Diet:: As Tolerated Discharge Orders Discharge Orders: Discharge Order (Routine); Ordered 11/21/20 Ordered By: Pedro Vargas DS: Summary Time Spent with Patient providing and/or coordinating discharge services: Less than 30 minutes Status at Discharge Functional status at discharge: independent ambulation Overall status at discharge: patient is back to baseline Mental Status: mental status grossly normal Speech and Movement: speech and movement normal Mood: congruent mood Affect: normal affect Exam Narrative Exam Narrative: Sitting on edge of bed; well dev. well nourshed appearing. Const General: cooperative and no acute distress Resp Effort & Inspection: normal respiratory effort Cardio Rate: regular rate Rhythm: regular rhythm GI Inspection: other (ND) Palpation: soft Skin General skin exam: no rashes or lesions noted Extrem General: no pedal edema and no calf tenderness Psych Mental Status: mental status grossly normal Speech and Movement: speech and movement normal Mood: congruent mood Affect: normal affect DS: Data Vitals/I&O Vitals and I&O: Vital Signs Temperature 36.8 C 11/20/20 23:52 Temperature Source Tympanic 11/20/20 23:52 Pulse 82 11/20/20 23:52 Pulse Rhythm Regular 11/21/20 04:19 Respiratory Rate 16 11/20/20 23:52 Respiratory Effort Non-Labored 11/21/20 04:19 Respiratory Depth Normal 11/21/20 04:19 Respiratory Pattern Normal 11/21/20 04:19 Blood Pressure 108/64 11/20/20 23:52 Blood Pressure Mean 78 11/20/20 19:59 Blood Pressure Position Supine 11/20/20 09:28 Pulse Oximetry 92 11/20/20 23:52 Oxygen Delivery Method Room Air 11/20/20 23:52 Oxygen Flow Rate 0 11/20/20 23:52 Pain Level 4 11/21/20 08:34 Intake & Output 11/20/20 11/20/20 11/21/20 11:59 23:59 11:59 Intake Total 1451 / 3413.5 1962.5 / 3413.5 1358.333 / 1358.333 Output Total 1970 / 1970 Balance 1451 / 1443.5 -7.5 / 1443.5 1358.333 / 1358.333 Weight 60.781 kg Intake: IV 1451 / 3113.5 1662.5 / 3113.5 1058.333 / 1058.333 Oral 300 / 300 300 / 300 Output: Urine 1969 Other: Urine Color Pale Yellow Urine Appearance Clear Clear Urine Odor Normal Voiding Methods Toilet Data Completed and Pending Labs on day of discharge: Labs from last 24 hours 11/21/20 07:41 WBC 8.41 RBC 3.64 L Hgb 11.1 L D Hct 34.3 L MCV 94.2 MCH 30.5 MCHC 32.4 RDW 12.3 Plt Count 203 D MPV 9.4 Immature Gran % 0.4 Neutrophils % 76.4 Lymphocytes % 12.4 Monocytes % 9.2 Eosinophils % 1.4 Basophils % 0.2 Nucleated RBC % 0 Absolute Neutrophils 6.43 Absolute Lymphocytes 1.04 L Absolute Monocytes 0.77 Absolute Eosinophils 0.12 Absolute Basophils 0.02 11/20/20 02:52 Urine - Reflex from Ua Urine Culture - Pending Preliminary micro results at discharge 11/20/20 02:52 Urine Culture - Pending Urine - Reflex from Ua [facility] Medical History Asthma Cervical scoliosis Childhood asthma Diverticulitis (01/06/13) Diverticulitis 01/2013 Eating disorder stress related Ovarian cyst Presence of IUD Scoliosis of thoracic spine Wilcox Rods implanted age 17 Surgical History Colonoscopy - IV Sedation (12/22/14) Dr. Hermilo Vidal Wilcox rods/spine placed age [age] [facility] Family History Maternal Grandmother Diabetes Social History Smoking/Tobacco Use Status: Former Tobacco Use Smoking risk assessment performed?: Yes Alcohol Intake: former Drug use: Occasionally Substance use type: marijuana Do you feel safe at home: Yes Do you feel safe in your relationship?: Yes History History 5 Para 4 Hx # Term Pregnancies 4 Multiple births 0 Hx # Pregnancies 0 Ectopic pregnancies 0 AB induced 1 Hx Number of Living Children 4 AB spontaneous 0 Past Pregnancies Del. Date GA/Weeks # Outcome Route Wgt Sex Labor Lgth Anesthes ia Location Prov Complic 10/31/00 40 No Successful vaginal 3033.399 g Female 9 hrs [facility] 07/26/04 40 No Successful vaginal 2891.651 g Female 4 hrs [facility] 09/19/18 39 No Successful vaginal 3940.584 g Male 7 hrs. 45 min. Shruti Winn CNM 01/24/20 40 No Successful vaginal 3405 g Female Tasha Yanelis Delivery Date: 10/31/00 VAVD failed, forceps for decreased FHT, cord around the neck Daisy Hilario Delivery Date: 07/26/04 no meds, no problems Daisy Hilario Delivery Date: 09/19/18 AMA, mild shoulder dystocia Shruti Winn Delivery Date: 01/24/20 Pt delivered precipitously female over intact perineum. Juany Bowen
--- NOTE | 2020-11-21 09:49 | W.PM.PROGNOT ---
Date of Service Date of service: 11/21/20 Time of Service: 09:49 Assessment and Plan Assessment and plan (1) Diverticulitis: Status: Chronic Subjective Subjective Patient reports: no new complaints, feels better and afebrile; denies shortness of breath Exam Narrative Exam Narrative: Sitting on edge of bed; well dev. well nourshed appearing. Const General: cooperative and no acute distress Resp Effort & Inspection: normal respiratory effort Cardio Rate: regular rate Rhythm: regular rhythm GI Inspection: other (ND) Palpation: soft Skin General skin exam: no rashes or lesions noted Extrem General: no pedal edema and no calf tenderness Psych Mental Status: mental status grossly normal Speech and Movement: speech and movement normal Mood: congruent mood Affect: normal affect Objective Last Vital Signs Temp 36.8 C 11/20/20 23:52 Pulse 82 11/20/20 23:52 Resp 16 11/20/20 23:52 BP 108/64 11/20/20 23:52 Pulse Ox 92 11/20/20 23:52 Laboratory Results - last 24 hr 11/21/20 07:41 WBC 8.41 RBC 3.64 L Hgb 11.1 L D Hct 34.3 L MCV 94.2 MCH 30.5 MCHC 32.4 RDW 12.3 Plt Count 203 D MPV 9.4 Immature Gran % 0.4 Neutrophils % 76.4 Lymphocytes % 12.4 Monocytes % 9.2 Eosinophils % 1.4 Basophils % 0.2 Nucleated RBC % 0 Absolute Neutrophils 6.43 Absolute Lymphocytes 1.04 L Absolute Monocytes 0.77 Absolute Eosinophils 0.12 Absolute Basophils 0.02
== END 2020-11-21 10:10 | disposition home or self-care (01) | DRG 392 ==
LOC: ER 07:12 → ICU 08:12 → MS 20:13
PROVIDERS: Family Medicine; Admitting Provider General Practice; Emergency Provider Student in an Organized Health Care Education/Training Program; PCP Nurse Practitioner Family; Visit Provider General Practice
DX: K57.32 Diverticulitis of large intestine without perforation or abscess without bleeding (principal); J45.909 Unspecified asthma, uncomplicated; M41.82 Other forms of scoliosis, cervical region; Z87.891 Personal history of nicotine dependence; F50.89 Other specified eating disorder; Z20.822 Contact with and (suspected) exposure to COVID-19
CPT/HCPCS: 36415; 80053; 81025; 87635; 96361; 96365; 96367; 96375; 96376; 99285; 74177; 81003; 81015; 83605; 85025; 87086; 99222; 99238; J0131; J0744; J2405; J3490

== ENCOUNTER 2021-01-01 04:06 | Outpatient (CLI) | payer MEDICAID, SELFPAY ==
[2021-01-01 12:50] LABS: Abs Immature Grans 0.02 10^3/uL (0.0-0.06); Absolute Basophil Count 0.03 10^3/uL (0.0-0.2); Absolute Eosinophil Count 0.05 10^3/uL (0.0-0.7); Absolute Lymphocyte Count 1.74 10^3/uL (1.2-3.4); Absolute Neutrophil Count 6.23 10^3/uL (1.2-6.7); Basophils % 0.3; Eosinophils % 0.6; HCT 40.8 % (36.0-46.0); HGB 13.2 g/dL (11.2-15.7); Immature Grans % 0.2; Lymphocytes % 20.1; MCH 29.9 pg (27.0-33.0); MCHC 32.4 % (32.0-36.0); MCV 92.3 fL (80-95); MPV 9.3 fL (8.0-11.0); Monocytes % 6.9; Neutrophils % 71.9; Nucleated RBC 0 %; Platelet Count 270 10^3/uL (130-400); RBC 4.42 10^6/uL (3.93-5.22); RDW 11.9 % (11.7-14.6); RDW-SD 41.3 fL; WBC 8.67 10^3/uL (4.4-10.8)
[2021-01-01 12:54] LABS: Bilirubin Negative (Negative); Blood Small (Negative); Clarity Clear (Clear); Glucose Negative (Negative); Ketones Negative (Negative); Leukocyte Esterase Negative (Negative); Nitrite Negative (Negative); Specific Gravity >= 1.030 (1.005-1.025); Urobilinogen 0.2 EU/dL (Up TO 0.2)
[2021-01-01 12:55] LABS: ESR < 1 mm/hr (0-20)
[2021-01-01 13:58] LABS: Bacteria Negative HPF (Negative); Crystals Negative HPF (Negative); Epithelial Cells Few HPF (Negative); Mucus Trace (Negative); WBC Negative HPF (0-5)
[2021-01-01 13:59] LABS: C & S Indicated? No; Casts Negative LPF (Negative)
[2021-01-01 14:09] LABS: Iron 76 ug/dL (50-170)
[2021-01-01 14:44] LABS: ALT 24 U/L (14-59); AST 9 U/L (15-37); Albumin 4.3 g/dL (3.4-5.0); Alkaline Phosphatase 69 U/L (46-116); BUN 9 mg/dL (7-18); Bilirubin, Total 0.5 mg/dL (0.2-1.0); CREATININE 0.7 mg/dL (0.55-1.02); Calcium 8.7 mg/dL (8.5-10.1); Chloride 103 mmol/L (98-107); Ferritin 58 ng/mL (8-252); Glucose 86 mg/dL (74-106); Potassium 3.9 mmol/L (3.5-5.1); Sodium 141 mmol/L (136-145); TSH 1.21 uIU/mL (0.36-3.74); Total Protein 7.5 g/dL (6.4-8.2); Vitamin B12 191 pg/mL (193-986)
[2021-01-01 14:47] LABS: Folate > 20.0 ng/mL (8.6-20.0)
[2021-01-01 15:06] LABS: FREE T4 0.76 ng/dL (0.76-1.46)
[2021-01-01 15:07] LABS: C-Reactive Protein < 0.05 mg/dL (0.0-0.3)
[2021-01-01 21:23] LABS: T3,Free 3.1 pg/mL (2.8-5.3)
[2021-01-04 18:01] LABS: 25-Hydroxy D Total 39 ng/mL; 25-Hydroxy D2 <4.0 ng/mL; 25-Hydroxy D3 39 ng/mL
== END 2021-01-01 04:07 | disposition home or self-care (01) ==
LOC: LBO 04:06
PROVIDERS: PCP Nurse Practitioner Family; Visit Provider Naturopath
DX: K57.52 Diverticulitis of both small and large intestine without perforation or abscess without bleeding (principal); R42 Dizziness and giddiness; L50.6 Contact urticaria; D50.8 Other iron deficiency anemias; R14.0 Abdominal distension (gaseous); G44.219 Episodic tension-type headache, not intractable; F51.01 Primary insomnia; D53.9 Nutritional anemia, unspecified; R39.15 Urgency of urination; Z63.72 Alcoholism and drug addiction in family; J45.30 Mild persistent asthma, uncomplicated
CPT/HCPCS: 36415; 80053; 82306; 85652; 81003; 81015; 82607; 82728; 82746; 83540; 84439; 84443; 84481; 85025; 86140

== ENCOUNTER 2021-01-11 05:41 | Inpatient (IN) | payer MEDICAID, SELFPAY ==
[2021-01-11] VITALS (21 sets, daily range): BP systolic 114–159; BP diastolic 66–90; PULSE 62–96; RESP 16–19; TEMP 36.5–37; O2SAT 97–100
--- NOTE | 2021-01-11 05:55 | W.ED.GENAD ---
Discharge Plan Disposition Patient Disposition: [facility] INPATIENT Condition: Stable Discharge Details Clinical Impression: Acute diverticulitis Admit Date/Time: 01/11/21 12:19 Admit Provider: Tania Montoya Attending Provider: Tania Montoya Primary Care Provider: Judith Wilhelm ED Provider: Funmilayo Ochoa Discharge Data Discharge Date/Time-TO BE ENTERED AT DEPARTURE: 01/11/21 12:58 Discharge Physician: Funmilayo Ochoa Medical Decision Making <Atif Thompson DO - Last Filed: 01/11/21 07:45> Physical exam demonstrates mild infraumbilical tenderness,45-year-old female with a past medical history of diverticulitis 1 month ago, asthma, ovarian cyst, who presents today for evaluation of abdominal pain. Patient had an uncomplicated treatment of her diverticulitis a month ago, this evening, about 12 hours prior to arrival the patient developed achy abdominal pain in the infraumbilical region. Patient states that she feels like she has gas that is she had she has been able to pass. She denies any vomiting or diarrhea. She denies any vaginal discharge or urinary complaints. She did see her PCP virtually yesterday, and had no issues at that time. Patient states that this feels somewhat different than her last episode of diverticulitis. No other complaints at this time. No other modifying factors. No lateralization to the left of the right toe. Differential seems unlikely for diverticulitis, kidney stone is on the differential as is ovarian cyst. Due to the patient multiple recent CAT scans they do feel that holding off on radiographic imaging at this time is reasonable, we will start with blood work Toradol and urinalysis. Symptoms appear inconsistent with appendicitis at this time. Will monitor closely and reassess. <Funmilayo Ochoa DO - Last Filed: 01/15/21 13:35> 0800 --please see Dr. Thompson's note for initial presentation, exam and plan. Case endorsed to follow-up on CT and final disposition. Labs and imaging reviewed. Labs unremarkable. Normal white blood cell count. Normal electrolytes. Urinalysis negative for infection. Urine test negative. 0900 -- CT scan per virtual radiology and in-house radiologist noted sigmoid diverticulitis. Reviewed and discussed CT with Dr. Carrasquillo who noted significant improvement of her findings of diverticulitis from her scan in November 2020. Notes that a CT with oral contrast at some point may be beneficial for reevaluation. Patient reassessed and her pain is 3-4/10. She states she would like to go home. She states she would prefer not to take the Cipro and Flagyl as it caused previous GI issues. We will treat with Augmentin. We will give a dose of oxycodone. 0930 -- Patient reassessed and she feels better and is requesting to go home. Case discussed with Dr. Montoya who is traveling in the car. Case was reviewed with her and that patient feels better and would like to go home. Her vitals are within normal limits, she has no fever, normal white blood cell count. Patient is hemodynamically stable. She appears nontoxic. Informed patient that Dr. Montoya has not yet reviewed the CTs that she has been placed on the surgery follow-up list. Discussed that a CT with oral contrast may be recommended at some point in follow-up. A prescription for Augmentin was sent electronically to her pharmacy. She was given tabs of oxycodone to go. She was advised on the importance of a low fiber and clear liquid diet for the next 2 days. Usual and customary return precautions given prior to discharge. 1000 -- Shortly after patient discharge, Dr. Montoya in the hospital and was able to review the CTs. She is requesting patient return for a CT with oral contrast. Patient was still waiting outside the ED for her ride and is agreeable to come back to the ED for scan with p.o. contrast. Patient is declining an IV so will hold on this at this time. Dr. Montoya aware. 1230 --CT reviewed with general surgery who notes that the contrast did not extend to the colon. There is significant amount of edema and persistent diverticulitis. Dr. Barcenas recommends admission for IV antibiotics and accepts pt for admission. Discussed plan with patient in the room and she is quite emotional and crying stating her concern for the poor care she received during her admission here in November. She states she pushed the call valdivia several times in the middle the night without response and had no toilet paper. She agrees that she needs to stay for IV antibiotics but is concerned about the care she will receive on the floor. This was discussed with Dr. Montoya and Luz the nursing litharge supervisor. Patient is agreeable with admission. A dose of Zosyn IV and IV fluids ordered. Medical Records Medical records reviewed: Yes I reviewed the patient's medical records. Imaging Data Radiologic Study: Radiologist's impression: CT ABDOMEN PELVIS W CLINICAL HISTORY: infraumbilical abd pain. TECHNIQUE: Imaging Protocol: Axial computed tomography images with coronal and sagittal reformatted images were created and reviewed CONTRAST MATERIAL: Intravenous: Omnipaque 100cc Oral: None COMPARISON: CT CT ABDOMEN PELVIS W from 11/20/2020 FINDINGS: VISUALIZED LUNG BASES: No nodules nor pleural effusions evident. ABDOMEN: There is a small amount of subhepatic ascites again noted LIVER: In the peripheral aspect of the right hepatic lobe there is subtle hypodensity in the subcapsular region, unchanged from previous. Possibly related to slightly dilated ducts possible hemangioma. This does not have the appearance of an obvious abscess, particularly given this patient's recent diverticulitis. GALLBLADDER/BILIARY: No obvious gallbladder pathology. CBD is not dilated. PANCREAS: No evidence of pancreatic mass nor dilatation of the pancreatic duct. SPLEEN: Spleen is not enlarged. No obvious intrasplenic lesions. Splenic and portal veins are patent. ADRENALS: There are no significant adrenal masses. KIDNEYS:No cysts evident. No solid renal masses. No calculi nor hydronephrosis.. ABDOMINAL AORTA: Abdominal aorta is not enlarged. LYMPH NODES:There is no retroperitineal nor paraaortic adenopathy. ABDOMINAL WALL: No evidence of significant anterior abdominal wall hernia. PELVIS: GI: Appendix not able to be identified. There are multiple distal small bowel loops which are partially fecalized. These exhibit upper normal diameters.The previously described inflammatory changes in the descending-left colon above the level of the left iliac crest have significantly decreased. However, lower down in the pelvis there is slight irregular appearance of the sigmoid which appears edematous and there is an air collection which is probably intraluminal but would be better defined with abundant oral contrast. There is a small amount of free fluid in the dependent aspect of the pelvis. LYMPH NODES: There is no intrapelvic nor inguinal adenopathy. REPRODUCTIVE: IUD is noted in satisfactory position in the uterine canal URINARY BLADDER: No obvious abnormality in the urinary bladder. No gas therein to suggest fistulous communication. OSSEOUS: No significant osseous lesions. Fusion hardware again noted in the lower thoracic-upper lumbar spine. IMPRESSION: 1. Compared to the prior CT scan of 11/20/2020 there has been significant improvement in the severe inflammatory changes in the lower descending left colon-sigmoid region. However, the sigmoid below this level is also involve with significant diverticulosis and there is some wall edema as well as a small amount of free fluid in the dependent aspect of the pelvis. There is also small amount of ascites in the right subhepatic region. 2. There is subtle nonspecific densities in the subhepatic aspect of the right hepatic lobe, unchanged from the prior study. I suspect this is probably related to the presence of an hemangioma. The appearance is not typical of an obvious intrahepatic abscess, given the sigmoid findings here. CT ABDOMEN PELVIS WO CLINICAL HISTORY: sigmoid diverticulitis on CT w/ IV contrast. TECHNIQUE: Imaging Protocol: Axial computed tomography images with coronal and sagittal reformatted images were created and reviewed CONTRAST MATERIAL: Intravenous: none Oral: Yes COMPARISON: CT CT ABDOMEN PELVIS W from 01/11/2021 FINDINGS: It appears that this study was repeated with oral contrast, as per request. However, the oral contrast has not reached the level of the large bowel at the time of image acquisition. There is sigmoid diverticulosis and subtle evidence of sigmoid diverticulitis. The previously present more severe diverticulitis evident on the CT scan of 11/20/2020 at the junction of the descending-left colon and sigmoid is again noted to have significantly improved. There is no evidence of formed abscess. However, there is a small amount of free fluid in the dependent aspect of the [id number]-pdd-eu-sac. It is not possible to determine if this is female physiologic or purulent fluid related to the diverticular disease. Lab Data Lab results reviewed: Yes I reviewed the patient's lab results. Labs: Laboratory Tests Range/Units 01/11/21 01/11/21 01/11/21 05:55 05:55 06:00 WBC (4.4-10.8) 10^3/uL 9.57 RBC (3.93-5.22) 10^6/uL 4.44 Hgb (11.2-15.7) g/dL 13.4 Hct (36.0-46.0) % 40.8 MCV (80-95) fL 91.9 MCH (27.0-33.0) pg 30.2 MCHC (32.0-36.0) % 32.8 RDW (11.7-14.6) % 12.3 Plt Count (130-400) 10^3/uL 260 MPV (8.0-11.0) fL 9.2 Immature Gran % 0.3 Neutrophils % 71.3 Lymphocytes % 16.5 Monocytes % 9.9 Eosinophils % 1.6 Basophils % 0.4 Nucleated RBC % % 0 Absolute Neutrophils (1.2-6.7) 10^3/uL 6.82 H Absolute Lymphocytes (1.2-3.4) 10^3/uL 1.58 Absolute Monocytes (0.1-0.8) 10^3/uL 0.95 H Absolute Eosinophils (0.0-0.7) 10^3/uL 0.15 Absolute Basophils (0.0-0.2) 10^3/uL 0.04 Sodium (136-145) mmol/L 138 Potassium (3.5-5.1) mmol/L 4.3 Chloride (98-107) mmol/L 103 Carbon Dioxide (21.0-32.0) mmol/L 29.1 Anion Gap (3-11) mmol/L 5.9 BUN (7-18) mg/dL 12 Creatinine (0.55-1.02) mg/dL 0.7 Estimated GFR/1.73 m2 (mL/min/1.73m2) >= 60.00 Glucose (74-106) mg/dL 94 Calcium (8.5-10.1) mg/dL 8.6 Total Bilirubin (0.2-1.0) mg/dL 0.7 AST (15-37) U/L 11 L ALT (14-59) U/L 16 Alkaline Phosphatase (46-116) U/L 65 Total Protein (6.4-8.2) g/dL 7.0 Albumin (3.4-5.0) g/dL 3.7 Urine Color (Yellow) Yellow Urine Clarity (Clear) Sl Cloudy Urine pH (5-8) 6.5 Ur Specific [place] (1.005-1.025) >= 1.030 H Urine Protein (Negative) mg/dL Negative Urine Ketones (Negative) mg/dL Negative Urine Blood (Negative) Negative Urine Nitrite (Negative) Negative Urine Bilirubin (Negative) Negative Urine Urobilinogen (Up TO 0.2) EU/dL 0.2 Ur Leukocyte Esterase (Negative) Negative Urine Glucose (Negative) mg/dL Negative HPI <Atif Thompson, - Last Filed: 01/11/21 07:45> General Date/Time Provider Initiated Documentation: 01/11/21 05:41. HPI Narrative: 45-year-old female with a past medical history of diverticulitis 1 month ago, asthma, ovarian cyst, who presents today for evaluation of abdominal pain. Patient had an uncomplicated treatment of her diverticulitis a month ago, this evening, about 12 hours prior to arrival the patient developed achy abdominal pain in the infraumbilical region. Patient states that she feels like she has gas that is she had she has been able to pass. She denies any vomiting or diarrhea. She denies any vaginal discharge or urinary complaints. She did see her PCP virtually yesterday, and had no issues at that time. Patient states that this feels somewhat different than her last episode of diverticulitis. No other complaints at this time. No other modifying factors. Related Data Home Medications Medication Instructions Recorded Confirmed fluticasone furoate 27.5 1 spray MERLE PRN ml 08/13/18 01/11/21 mcg/actuation nasal spray,suspension fluticasone propionate 110 2 puff IH BID 12/27/19 01/11/21 mcg/actuation HFA aerosol inhaler magnesium 200 mg tablet 200 mg PO DAILY 03/07/20 11/20/20 levonorgestrel 20 mcg/24 hours (6 1 device INTRAUTERINE ONCE 03/16/20 01/11/21 yrs) 52 mg intrauterine device ciprofloxacin HCl 500 mg PO BID #14 tab 11/21/20 metronidazole [Flagyl] 500 mg PO TID #21 tab 11/21/20 ondansetron HCl [Zofran] 4 mg PO Q8H PRN #10 tab 11/21/20 promethazine 25 mg PO QHS PRN #7 tab 11/21/20 amoxicillin-pot clavulanate 1 tab PO BID 10 Days #20 tab 01/11/21 [Augmentin] Previous Rx's Medication Instructions Recorded ciprofloxacin HCl 500 mg PO BID #14 tab 11/21/20 metronidazole [Flagyl] 500 mg PO TID #21 tab 11/21/20 ondansetron HCl [Zofran] 4 mg PO Q8H PRN #10 tab 11/21/20 promethazine 25 mg PO QHS PRN #7 tab 11/21/20 amoxicillin-pot clavulanate 1 tab PO BID 10 Days #20 tab 01/11/21 [Augmentin] Allergies Allergy/AdvReac Type Severity Reaction Status Date / Time Sulfa (Sulfonamide Allergy Mild Verified 11/20/20 03:55 Antibiotics) morphine AdvReac Intermediate Verified 11/20/20 03:55 General Stated Complaint: Abd Prob AGNES: 3 Review of Systems <Atif Thompson DO - Last Filed: 01/11/21 07:45> All systems reviewed & are unremarkable except as noted in HPI and below PFSH <Atif Thompson DO - Last Filed: 01/11/21 07:45> Medical History Asthma Cervical scoliosis Childhood asthma Diverticulitis (01/06/13) Diverticulitis 01/2013 Eating disorder stress related Ovarian cyst Presence of IUD Scoliosis of thoracic spine Wilcox Rods implanted age 17 Surgical History Colonoscopy - IV Sedation (12/22/14) Dr. Hermilo Vidal Wilcox rods/spine placed age [age] [facility] Family History Maternal Grandmother Diabetes Social History Smoking/Tobacco Use Status: Former Tobacco Use Tobacco: How many years used: 4 Smoking risk assessment performed?: Yes Alcohol Intake: former Drug use: Occasionally Substance use type: marijuana Do you feel safe at home: Yes Do you feel safe in your relationship?: Yes History History 5 Para 4 Hx # Term Pregnancies 4 Multiple births 0 Hx # Pregnancies 0 Ectopic pregnancies 0 AB induced 1 Hx Number of Living Children 4 AB spontaneous 0 Past Pregnancies Del. Date GA/Weeks # Outcome Route Wgt Sex Labor Lgth Anesthesia Location Prov Complic 10/31/00 40 No Successful vaginal 3033.399 g Female 9 hrs [facility] 07/26/04 40 No Successful vaginal 2891.651 g Female 4 hrs [facility] 09/19/18 39 No Successful vaginal 3940.584 g Male 7 hrs. 45 min. Shruti Mulkern,CNM 01/24/20 40 No Successful vaginal 3405 g Female Tasha Hilario Delivery Date: 10/31/00 VAVD failed, forceps for decreased FHT, cord around the neck Daisy Hilario Delivery Date: 07/26/04 no meds, no problems Daisy Hilario Delivery Date: 09/19/18 AMA, mild shoulder dystocia Shruti Winn Delivery Date: 01/24/20 Pt delivered precipitously female over intact perineum. Juany Bowen Exam <Atif Thompson DO - Last Filed: 01/11/21 07:45> Narrative Exam Narrative: 1.Const: Well-nourished, Well-developed, appearing stated age 2.Eyes: PERRL, no conjunctival injection, and symmetrical lids. 3.ENT: Atraumatic external nose and ears. Moist MM. Neck: Symmetric, trachea midline, No thyromegaly. 4.CVS: +S1/S2, No murmurs or gallops. Peripheral pulses 2+ and equal in all extremities. Brisk capillary refill in all extremities. 5.RESP: Unlabored respiratory effort. Clear to auscultation bilaterally. No wheezes rales or rhonchi 6.GI: Soft, nondistended, mild tenderness in the infraumbilical region. No focal pain to McBurney's point, no focal pain or left lower quadrant. Mild pelvic tenderness. Patient does have positive rebound in the left lower quadrant from palpation which radiates to the infraumbilical region. 7.MSK: Normocephalic/Atraumatic, Extremities w/o deformity or ttp No cyanosis or clubbing, Normal movement of all extremities 8.Skin: Warm, Dry. No rashes or lesions. 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 Sensation grossly intact, no focal neurologic deficits. 10.Psych: (AAO) x3. Appropriate mood and affect Course <Atif Thompson DO - Last Filed: 01/11/21 07:45> Vital Signs Vital signs: Vital Signs Temperature 36.9 C 01/11/21 05:43 Pulse 88 01/11/21 05:43 Respiratory Rate 19 01/11/21 05:43 Blood Pressure 128/90 01/11/21 05:43 Pulse Oximetry 98 01/11/21 05:43 Temperature 36.9 C 01/11/21 05:43 Temperature Source Temporal Artery Scan 01/11/21 05:43 Pulse 88 01/11/21 05:43 Respiratory Rate 19 01/11/21 05:43 Respiratory Effort 01/11/21 05:49 Blood Pressure 128/90 01/11/21 05:43 Blood Pressure Position Sitting 01/11/21 05:43 Pulse Oximetry 98 01/11/21 05:43 Pain Level 7 01/11/21 05:49 Comment 01/11/21 05:43 Sign Out <Atif Thompson DO - Last Filed: 01/11/21 07:45> Sign Out Data: Sign Out Comment: Mild abdominal pain. Pending CT results. Expected discharge Last updated by Atif Thompson DO at 01/11/21 07:44
[2021-01-11 06:03] LABS: Abs Immature Grans 0.03 10^3/uL (0.0-0.06); Absolute Basophil Count 0.04 10^3/uL (0.0-0.2); Absolute Eosinophil Count 0.15 10^3/uL (0.0-0.7); Absolute Lymphocyte Count 1.58 10^3/uL (1.2-3.4); Absolute Monocyte Count 0.95 10^3/uL (0.1-0.8); Absolute Neutrophil Count 6.82 10^3/uL (1.2-6.7); Basophils % 0.4; Eosinophils % 1.6; HCT 40.8 % (36.0-46.0); HGB 13.4 g/dL (11.2-15.7); Immature Grans % 0.3; Lymphocytes % 16.5; MCH 30.2 pg (27.0-33.0); MCHC 32.8 % (32.0-36.0); MCV 91.9 fL (80-95); MPV 9.2 fL (8.0-11.0); Monocytes % 9.9; Neutrophils % 71.3; Nucleated RBC 0 %; Platelet Count 260 10^3/uL (130-400); RBC 4.44 10^6/uL (3.93-5.22); RDW 12.3 % (11.7-14.6); RDW-SD 41.6 fL; WBC 9.57 10^3/uL (4.4-10.8)
[2021-01-11] MEDS: Ketorolac 15 MG/ML VIAL IVP ×2 (06:04→16:37)
[2021-01-11 06:08] LABS: Bilirubin Negative (Negative); Blood Negative (Negative); Clarity Sl Cloudy (Clear); Glucose Negative (Negative); Ketones Negative (Negative); Leukocyte Esterase Negative (Negative); Nitrite Negative (Negative); Specific Gravity >= 1.030 (1.005-1.025); Urobilinogen 0.2 EU/dL (Up TO 0.2); pH 6.5 (5-8)
--- NOTE | 2021-01-11 06:15 | DI.CT_ITS ---
Exam(s) CT ABDOMEN PELVIS W EXAM: CT ABDOMEN PELVIS W CLINICAL HISTORY: infraumbilical abd pain. TECHNIQUE: Imaging Protocol: Axial computed tomography images with coronal and sagittal reformatted images were created and reviewed CONTRAST MATERIAL: Intravenous: Omnipaque 100cc Oral: None COMPARISON: CT CT ABDOMEN PELVIS W from 11/20/2020 FINDINGS: VISUALIZED LUNG BASES: No nodules nor pleural effusions evident. ABDOMEN: There is a small amount of subhepatic ascites again noted LIVER: In the peripheral aspect of the right hepatic lobe there is subtle hypodensity in the subcapsu lar region, unchanged from previous. Possibly related to slightly dilated ducts possible hemangioma. This does not have the appearance of an obvious abscess, particularly given this patient's recent d iverticulitis. GALLBLADDER/BILIARY: No obvious gallbladder pathology. CBD is not dilated. PANCREAS: No evidence of pancreatic mass nor dilatation of the pancreatic duct. SPLEEN: Spleen is not enlarged. No obvious intrasplenic lesions. Splenic and portal veins are paten t. ADRENALS: There are no significant adrenal masses. KIDNEYS:No cysts evident. No solid renal masses. No calculi nor hydronephrosis.. ABDOMINAL AORTA: Abdominal aorta is not enlarged. LYMPH NODES:There is no retroperitineal nor paraaortic adenopathy. ABDOMINAL WALL: No evidence of significant anterior abdominal wall hernia. PELVIS: GI: Appendix not able to be identified. There are multiple distal small bowel loops which are partia lly fecalized. These exhibit upper normal diameters.The previously described inflammatory changes in the descending-left colon above the level of the left iliac crest have significantly decreased. How ever, lower down in the pelvis there is slight irregular appearance of the sigmoid which appears petrona atous and there is an air collection which is probably intraluminal but would be better defined with abundant oral contrast. There is a small amount of free fluid in the dependent aspect of the pelvis. LYMPH NODES: There is no intrapelvic nor inguinal adenopathy. REPRODUCTIVE: IUD is noted in satisfactory position in the uterine canal URINARY BLADDER: No obvious abnormality in the urinary bladder. No gas therein to suggest fistulous communication. OSSEOUS: No significant osseous lesions. Fusion hardware again noted in the lower thoracic-upper lumbar spine. IMPRESSION: 1. Compared to the prior CT scan of 11/20/2020 there has been significant improvement in the severe i nflammatory changes in the lower descending left colon-sigmoid region. However, the sigmoid below th is level is also involve with significant diverticulosis and there is some wall edema as well as a sm all amount of free fluid in the dependent aspect of the pelvis. There is also small amount of ascite s in the right subhepatic region. 2. There is subtle nonspecific densities in the subhepatic aspect of the right hepatic lobe, unchange d from the prior study. I suspect this is probably related to the presence of an hemangioma. The ap pearance is not typical of an obvious intrahepatic abscess, given the sigmoid findings here. Findings called by myself to the ER provider. RADIATION DOSE DELIVERED: 695.99mGy.cm Total DLP DATA REPOSITORY: All CT scans at this facility are submitted to the National Radiology Data Registry (NRDR) Dose Index Registry (DIR) with the [employer] (ACR). RADIATION OPTIMIZATION: All CT scans at this facility use at least one of these dose optimization te chniques: automated exposure control; mA and/or kV adjustment per patient size (includes targeted exa ms where dose is matched to clinical indication); or iterative reconstruction.
[2021-01-11 06:16] LABS: ALT 16 U/L (14-59); AST 11 U/L (15-37); Albumin 3.7 g/dL (3.4-5.0); Alkaline Phosphatase 65 U/L (46-116); Anion Gap 5.9 mmol/L (3-11); BUN 12 mg/dL (7-18); Bilirubin, Total 0.7 mg/dL (0.2-1.0); CO2 29.1 mmol/L (21.0-32.0); CREATININE 0.7 mg/dL (0.55-1.02); Calcium 8.6 mg/dL (8.5-10.1); Chloride 103 mmol/L (98-107); Glucose 94 mg/dL (74-106); Potassium 4.3 mmol/L (3.5-5.1); Sodium 138 mmol/L (136-145)
[2021-01-11] MEDS: Omnipaque 350 MG/ML 100 ML BTL IJ (06:46)
[2021-01-11] MEDS: Normal Saline Flush 10 ML SYR IVP ×2 (06:52→16:37)
--- NOTE | 2021-01-11 07:55 | DI.VRAD_ITS ---
PROCEDURE INFORMATION: Exam: CT Abdomen And Pelvis With Contrast Exam date and time: 01/11/2021 6:22 AM Age: 45 years old Clinical indication: Other: Infraumbilical abd pain TECHNIQUE: Imaging protocol: Computed tomography of the abdomen and pelvis with contrast. Contrast material: OMNIPAQUE 350; Contrast volume: 100 ml; Contrast route: INTRAVENOUS (IV); COMPARISON: CT ABDOMEN PELVIS W 11/20/2020 3:39 AM FINDINGS: Liver: Normal. No mass. Gallbladder and bile ducts: Normal. No calcified stones. No ductal dilation. Pancreas: Normal. No ductal dilation. Spleen: Normal. No splenomegaly. Adrenal glands: Normal. No mass. Kidneys and ureters: Normal. No hydronephrosis. Stomach and bowel: Sigmoid diverticulitis noted. Degree of inflammation is mild. No abscess or free air.. Appendix: No evidence of appendicitis. Intraperitoneal space: See Stomach and bowel finding. Vasculature: Unremarkable. No abdominal aortic aneurysm. Lymph nodes: Unremarkable. No enlarged lymph nodes. Urinary bladder: Unremarkable as visualized. Reproductive: Centrally located IUD in place. Bones/joints: Unremarkable. No acute fracture. Soft tissues: Unremarkable. IMPRESSION: Sigmoid diverticulitis noted. Degree of inflammation is mild. No abscess or free air.. Dictated and Authenticated by: Spencer Monreal MD. Ordering:TATYANA Srivastava MD
[2021-01-11] MEDS: Normal Saline 1,000 ML 1000 ML IV (08:32)
[2021-01-11] MEDS: Amoxicillin 875/Clav. 125 TAB PO (09:18)
[2021-01-11] MEDS: oxyCODONE 5 MG TAB PO (09:18)
--- NOTE | 2021-01-11 10:00 | DI.CT_ITS ---
Exam(s) CT ABDOMEN PELVIS WO EXAM: CT ABDOMEN PELVIS WO CLINICAL HISTORY: sigmoid diverticulitis on CT w/ IV contrast. TECHNIQUE: Imaging Protocol: Axial computed tomography images with coronal and sagittal reformatted images were created and reviewed CONTRAST MATERIAL: Intravenous: none Oral: Yes COMPARISON: CT CT ABDOMEN PELVIS W from 01/11/2021 FINDINGS: It appears that this study was repeated with oral contrast, as per request. However, the oral contra st has not reached the level of the large bowel at the time of image acquisition. There is sigmoid diverticulosis and subtle evidence of sigmoid diverticulitis. The previously presen t more severe diverticulitis evident on the CT scan of 11/20/2020 at the junction of the descending-l eft colon and sigmoid is again noted to have significantly improved. There is no evidence of formed abscess. However, there is a small amount of free fluid in the depend ent aspect of the baopzf-ufb-hb-sac. It is not possible to determine if this is female physiologic o r purulent fluid related to the diverticular disease. IMPRESSION: 1. 2. 3. RADIATION DOSE DELIVERED: 691.13mGy.cm Total DLP DATA REPOSITORY: All CT scans at this facility are submitted to the National Radiology Data Registry (NRDR) Dose Index Registry (DIR) with the [employer] (A[employer]). RADIATION OPTIMIZATION: All CT scans at this facility use at least one of these dose optimization te chniques: automated exposure control; mA and/or kV adjustment per patient size (includes targeted exa ms where dose is matched to clinical indication); or iterative reconstruction.
[2021-01-11] MEDS: Ondansetron O.D.T. 4 MG TABEF PO (11:22)
--- NOTE | 2021-01-11 11:23 | NUR.NOTE ---
c/o nausea with retching while drinking DI contrast--Dr Ochoa notified--ondansetron ordered.Nursing Note:
[2021-01-11] MEDS: Breeza Beverage 473 ML BTL PO (11:51)
[2021-01-11] MEDS: Omnipaque 350 MG/ML 50 ML BTL PO (11:51)
--- NOTE | 2021-01-11 12:27 | HPE_ITS ---
Date of service: 01/11/21 Time of Service: 12:27 Assessment and Plan Assessment and plan (1) Acute diverticulitis: Status: Acute Assessment and plan: -iv zosyn pt had a back reaction to flagyl (muscle cramps) -toradol/tylenol IV & bentyl for pain control pt does not like the feeling narcotics gave her -priobiotics/DVT proph/pulm toilet -bowel rest most likely pt had incompletely treated course in November. needs to have f/u CE in 4-5 wks. History of Present Illness Narrative: Patient came to the ER today complaining of suprapubic pain lower abdominal pain. The last week she has been feeling very rundown and drained. She has no energy. Her bowels have been regular until the last 48 hours when she has not been able to have a bowel movement. She feels very bloated and crampy. She denies any nausea. She denies any fever or chills. She denies dyspnea any dysuria. Pain does not radiate to her back. She was admitted on November 20 with diverticulitis. Patient states she felt good for about 2 weeks afterwards but thinks her symptoms are slowly recurring. Patient had a lot of side effects from being on Cipro and Flagyl including muscle aches and just an overall sensation of feeling poorly. She also notes that she is followed by a hearing instrument specialist who is follow-up following her folate levels. Her folate levels have been very low lately. She has been feeling very drained and very tired for the past 2 weeks. She has mild pain in the suprapubic position today. She has good bowel sounds. She has mild distention. Patient states she has been under a lot of stress lately and she may have not been eating well. She has 2 small children. But she tries to follow a high- fiber diet. There were some questionable abnormalities and we had her come back and drink contrast and repeat the CT. Unfortunately the contrast had not really reached for: At the time of repeat scanning. Her colon still looks edematous, though not as severe as her previous attack. She is still running a low-grade white count. I think she was incompletely treated still from her last episode. And she would benefit from a short course of 24 hours of IV antibiotics. She should also have a repeat colonoscopy in 4 to 6 weeks. I did discuss with the patient today that she had oral contrast for CT scan, so she could expect some significant diarrhea this afternoon or evening. Review of Systems All systems reviewed & are unremarkable except as noted in HPI and below PFSH Medical History Asthma Cervical scoliosis Childhood asthma Diverticulitis (01/06/13) Diverticulitis 01/2013 Eating disorder stress related Ovarian cyst Presence of IUD Scoliosis of thoracic spine Wilcox Rods implanted age 17 Surgical History Colonoscopy - IV Sedation (12/22/14) Dr. Hermilo Vidal Wilcox rods/spine placed age [age] [facility] Family History Maternal Grandmother Diabetes Social History Smoking/Tobacco Use Status: Former Tobacco Use Tobacco: How many years used: 4 Smoking risk assessment performed?: Yes Alcohol Intake: former Drug use: Occasionally Substance use type: marijuana Do you feel safe at home: Yes Do you feel safe in your relationship?: Yes History History 5 Para 4 Hx # Term Pregnancies 4 Multiple births 0 Hx # Pregnancies 0 Ectopic pregnancies 0 AB induced 1 Hx Number of Living Children 4 AB spontaneous 0 Past Pregnancies Del. Date GA/Weeks # Outcome Route Wgt Sex Labor Lgth Anesthes ia Location [facility] 10/31/00 40 No Successful vaginal 3033.399 g Female 9 hrs [facility] 07/26/04 40 No Successful vaginal 2891.651 g Female 4 hrs [facility] 09/19/18 39 No Successful vaginal 3940.584 g Male 7 hrs. 45 min. Shruti Winn CNM 01/24/20 40 No Successful vaginal 3405 g Female Tasha Yanelis Delivery Date: 10/31/00 VAVD failed, forceps for decreased FHT, cord around the neck Daisy Hilario Delivery Date: 07/26/04 no meds, no problems Daisy Hilario Delivery Date: 09/19/18 AMA, mild shoulder dystocia Shruti Winn Delivery Date: 01/24/20 Pt delivered precipitously female over intact perineum. Bowen,Juany Meds Allergies and Home Medications Allergies Allergy/AdvReac Type Severity Reaction Status Date / Time Sulfa (Sulfonamide Allergy Mild Verified 11/20/20 03:55 Antibiotics) morphine AdvReac Intermediate Verified 11/20/20 03:55 Home Medications Medication Instructions Recorded Confirmed Type fluticasone furoate 27.5 1 spray MERLE PRN ml 08/13/18 01/11/21 History mcg/actuation nasal spray,suspension fluticasone propionate 110 2 puff IH BID 12/27/19 01/11/21 History mcg/actuation HFA aerosol inhaler magnesium 200 mg tablet 200 mg PO DAILY 03/07/20 11/20/20 History levonorgestrel 20 mcg/24 hours (6 1 device INTRAUTERINE ONCE 03/16/20 01/11/21 History yrs) 52 mg intrauterine device ciprofloxacin HCl 500 mg PO BID #14 tab 11/21/20 Rx metronidazole [Flagyl] 500 mg PO TID #21 tab 11/21/20 Rx ondansetron HCl [Zofran] 4 mg PO Q8H PRN #10 tab 11/21/20 Rx promethazine 25 mg PO QHS PRN #7 tab 11/21/20 Rx amoxicillin-pot clavulanate 1 tab PO BID 10 Days #20 tab 01/11/21 Rx [Augmentin] Exam Const General: cooperative, healthy appearing, comfortable, no acute distress, well developed and well groomed Nutritional Appearance: average body habitus and well nourished Orientation: alert, awake and oriented x3 HENMT Head: normal to inspection, normocephalic and atraumatic Ears: hearing grossly normal bilaterally and external ears normal General nose exam: external nose normal Face and sinus: normal facial exam and sinuses nontender Mouth: oral mucosae normal, lip normal, tongue normal and moist mucous membranes Teeth and gingiva: dentition normal Eyes General: appearance normal, both eyes and all related structures Conjunctivae: conjunctivae normal Sclera: sclerae normal Pupils: PERRL Neck Neck: normal visual inspection and full ROM Chest Chest: normal inspection of the chest Resp Effort & Inspection: normal respiratory effort, able to speak in complete sentences, no cough, no nasal flaring, not tachypneic and no use of accessory muscles Auscultation: clear to auscultation bilaterally, no rales, no rhonchi and no wheezes Cardio Jugular venous pressure: no JVD Rate: regular rate Rhythm: regular rhythm GI Inspection: normal to inspection, no edema and distended Palpation: soft, no masses, tender and No ascites Auscultation: normal bowel sounds Skin General skin exam: no rashes or lesions noted Trauma: no lacerations or abrasions Neuro General: patient alert, patient oriented x3, oriented, gait normal, moves all extremities, no focal motor deficits and CN's II-XI intact bilaterally Cognition: normal cognition Speech: speech normal Gait: normal gait Motor: muscle tone normal throughout Extrem General: normal to inspection, full ROM and no clubbing, cyanosis or edema Psych Appearance: grossly normal and well kempt Mental Status: mental status grossly normal Speech and Movement: speech and movement normal Affect: normal affect Results Labs Result diagrams: 01/11/21 05:55 01/11/21 05:55 Labs: Laboratory Results - last 24 hr 01/11/21 01/11/21 01/11/21 05:55 05:55 06:00 WBC 9.57 RBC 4.44 Hgb 13.4 Hct 40.8 MCV 91.9 MCH 30.2 MCHC 32.8 RDW 12.3 Plt Count 260 MPV 9.2 Immature Gran % 0.3 Neutrophils % 71.3 Lymphocytes % 16.5 Monocytes % 9.9 Eosinophils % 1.6 Basophils % 0.4 Nucleated RBC % 0 Absolute Neutrophils 6.82 H Absolute Lymphocytes 1.58 Absolute Monocytes 0.95 H Absolute Eosinophils 0.15 Absolute Basophils 0.04 Sodium 138 Potassium 4.3 Chloride 103 Carbon Dioxide 29.1 Anion Gap 5.9 BUN 12 Creatinine 0.7 Estimated GFR/1.73 m2 >= 60.00 Glucose 94 Calcium 8.6 Total Bilirubin 0.7 AST 11 L ALT 16 Alkaline Phosphatase 65 Total Protein 7.0 Albumin 3.7 Urine Color Yellow Urine Clarity Sl Cloudy Urine pH 6.5 Ur Specific [place] >= 1.030 H Urine Protein Negative Urine Ketones Negative Urine Blood Negative Urine Nitrite Negative Urine Bilirubin Negative Urine Urobilinogen 0.2 Ur Leukocyte Esterase Negative Urine Glucose Negative Last Vital Signs Temp 36.7 C 01/11/21 09:48 Pulse 67 01/11/21 11:33 Resp 19 01/11/21 09:48 BP 125/72 01/11/21 11:33 Pulse Ox 97 01/11/21 11:33
--- NOTE | 2021-01-11 12:51 | NUR.NOTE ---
Report to VINEET Chan. Room 205 Nursing Note:
[2021-01-11] MEDS: Normal Saline 1,000 ML 125 ML IV ×2 (12:55→13:30)
[2021-01-11] MEDS: PIPERACILLIN/TAZO 3.375 GM in Normal Saline 50 ML IVPB (12:55)
[2021-01-11 13:10] LABS: C-Reactive Protein 0.83 mg/dL (0.0-0.3)
[2021-01-11 13:53] LABS: COVID-19 PCR Negative (Negative); Source Nasal/Nares
--- NOTE | 2021-01-11 18:03 | NUR.NOTE ---
Nursing Note: Referral faxed to general surgery for diverticulitis 01/11/21
--- NOTE | 2021-01-11 18:39 | CMPROGNOTE_ITS ---
Care Management Progress Note ROGER was requested to see Sofia as she and her visitor were refusing to follow visitor policy. Sofia was sitting up in her chair, her visitor also sitting in a chair, next to her. She stated she just needed a half an hour with her visitor due to emotional strife. She stated the policy was not reviewed with her and her visitor had just secured a aids social worker. She stated she had been on the bench outside the ED discharging and then was told to come back in. She stated the last time she was at [facility] she needed a hospital social worker because of how she was treated. And stated she needed to be talked in to staying at [facility] this admission. She stated last admission the toilet was out of reach with no toilet paper. And she wasn't dealing with travelers but the local, burnt out ones referencing [facility] staff. CM attempted to keep Sofia focused on current situation and policy, as she continued to deflect to her unhappiness regarding her last admission. CM validated that Sofia should have had the visitor policy reviewed with her prior to admission, but that the current policy could not be changed to accommodate her wishes. Sofia escalated in voice and presentation, waving her arms. CM attempted de- escalation by sharing that past events could not be attended to at this time, and current policies needed to be followed. Direct instruction to inform current behavior. ROGER explained that it was completely within her rights to stay at [facility] or to decide to leave, but that her visitor needed to leave now, either way. She asked for this production underwriter's name: ROGER wrote it on the white board for her to reference directly. She signed the AMA form and ROGER provided to Rohini Massey Clerk on M/S.
--- NOTE | 2021-01-12 14:58 | W.PM.DS.N ---
Date of service: 01/11/21 Time of Service: 21:58 DS: Diagnosis Discharge Diagnosis (1) Acute diverticulitis: Status: Acute Discharge Plan Disposition Patient Disposition: AGAINST MEDICAL ADVICE Condition: Stable Discharge Details Reason For Visit: Acute Diverticulitis Admit Date/Time: 01/11/21 12:19 Admit Provider: Tania Montoya Attending Provider: Tania Montoya Primary Care Provider: Judith Wilhelm Hospital Course Hospital Course: pt left AMA. I did not prescribe her antiobiotics or arrange any follow-up for her. Home Meds and New Rx's Prescriptions: New amoxicillin-pot clavulanate [Augmentin] 875-125 mg tablet 1 tab PO BID 10 Days Qty: 20 RF: 0 Continued Flovent HFA 110 mcg/actuation HFA aerosol inhaler 2 puff IH BID RF: 0 magnesium 200 mg tablet 200 mg PO DAILY RF: 0 Flonase Sensimist 27.5 mcg/actuation spray,suspension 1 spray MERLE PRN RF: 0 Mirena 20 mcg/24 hours (6 yrs) 52 mg intrauterine device 1 device intrauterine ONCE RF: 0 metronidazole [Flagyl] 500 mg tablet 500 mg PO TID Qty: 21 RF: 0 ciprofloxacin HCl 500 mg tablet 500 mg PO BID Qty: 14 RF: 0 ondansetron HCl [Zofran] 4 mg tablet 4 mg PO Q8H PRN (Reason: nausea and vomiting) Qty: 10 RF: 0 promethazine 25 mg tablet 25 mg PO QHS PRNQty: 7 RF: 0 Discharge Instructions Instructions: Diverticulitis (ED), Diverticulitis Diet (ED), Abdominal Pain (ED) Additional Instructions: Drink plenty of fluids and get plenty of rest. Follow a clear liquid and low fiber diet as much as possible over the next few days. You were given instructions regarding dietary options and recommendations. Alternate tylenol and motrin as needed and directed for pain. You can take the oxycodone for pain not relieved with Tylenol or Motrin. A prescription for Augmentin was sent electronically to your pharmacy. Take this as directed until finished. Call the general surgery office today to schedule a follow-up appointment for reevaluation. Return immediately to the emergency department if you develop any worsening or new concerning symptoms such as fever, worsening pain, persistent vomiting or any other concerns. Referrals: Tania Montoya DO [OSTEOPATHIC DOCTOR] - Discharge Data Discharge Date/Time-TO BE ENTERED AT DEPARTURE: 01/11/21 18:39 DS: Summary Time Spent with Patient providing and/or coordinating discharge services: Less than 30 minutes Status at Discharge Functional status at discharge: independent ambulation Overall status at discharge: other Mental Status: other Speech and Movement: other Mood: other Affect: other Exam Psych Mental Status: other Speech and Movement: other Mood: other Affect: other DS: Data Vitals/I&O Vitals and I&O: Vital Signs Temperature 37.0 C 01/11/21 16:47 Temperature Source Skin 01/11/21 16:30 Pulse 69 01/11/21 16:47 Pulse Rhythm Regular 01/11/21 16:47 Respiratory Rate 18 01/11/21 16:47 Respiratory Effort Non-Labored 01/11/21 16:47 Respiratory Depth Normal 01/11/21 16:47 Respiratory Pattern Normal 01/11/21 16:47 Blood Pressure 133/86 01/11/21 16:47 Blood Pressure Mean 79 01/11/21 12:37 Blood Pressure Position Sitting 01/11/21 05:43 Pulse Oximetry 99 01/11/21 16:47 Oxygen Delivery Method Room Air 01/11/21 16:47 Oxygen Flow Rate 0 01/11/21 16:47 Pain Level 3 01/11/21 16:37 Comment 01/11/21 05:43 Intake & Output 01/11/21 01/12/21 01/12/21 23:59 11:59 23:59 Intake Total 122.917 / 1122.917 Balance 122.917 / 1122.917 Intake: IV 122.917 / 1122.917 [facility] Medical History Asthma Cervical scoliosis Childhood asthma Diverticulitis (01/06/13) Diverticulitis 01/2013 Eating disorder stress related Ovarian cyst Presence of IUD Scoliosis of thoracic spine Wilcox Rods implanted age 17 Surgical History Colonoscopy - IV Sedation (12/22/14) Dr. Hermilo Vidal Wilcox rods/spine placed age [age] [facility] Family History Maternal Grandmother Diabetes Social History Smoking/Tobacco Use Status: Former Tobacco Use Tobacco: How many years used: 4 Smoking risk assessment performed?: Yes Alcohol Intake: former Drug use: Occasionally Substance use type: marijuana Do you feel safe at home: Yes Do you feel safe in your relationship?: Yes History History 5 Para 4 Hx # Term Pregnancies 4 Multiple births 0 Hx # Pregnancies 0 Ectopic pregnancies 0 AB induced 1 Hx Number of Living Children 4 AB spontaneous 0 Past Pregnancies Del. Date GA/Weeks # Outcome Route Wgt Sex Labor Lgth Anesthesia Location [facility] 10/31/00 40 No Successful vaginal 3033.399 g Female 9 hrs [facility] 07/26/04 40 No Successful vaginal 2891.651 g Female 4 hrs [facility] 09/19/18 39 No Successful vaginal 3940.584 g Male 7 hrs. 45 min. Shruti Winn CNM 01/24/20 40 No Successful vaginal 3405 g Female Tasha Yanelis Delivery Date: 10/31/00 VAVD failed, forceps for decreased FHT, cord around the neck Daisy Hilario Delivery Date: 07/26/04 no meds, no problems Daisy Hilario Delivery Date: 09/19/18 AMA, mild shoulder dystocia Shruti Winn Delivery Date: 01/24/20 Pt delivered precipitously female infant over intact perineum. Juany Bowen
== END 2021-01-11 18:39 | disposition left against medical advice (07) | DRG 392 ==
LOC: ER 13:01 → MS 13:03
PROVIDERS: Student in an Organized Health Care Education/Training Program; Admitting Provider Surgery; Emergency Provider Physician Assistant; PCP Nurse Practitioner Family; Visit Provider Surgery
DX: K57.32 Diverticulitis of large intestine without perforation or abscess without bleeding (principal); J45.909 Unspecified asthma, uncomplicated; M41.82 Other forms of scoliosis, cervical region; F50.89 Other specified eating disorder; Z68.20 Body mass index [BMI] 20.0-20.9, adult; Z87.891 Personal history of nicotine dependence; F12.90 Cannabis use, unspecified, uncomplicated
CPT/HCPCS: 36415; 80053; 81025; 87635; 96361; 96374; 96375; 99285; 74176; 74177; 81003; 85025; 86140; J1885; J2543; J3490; Q9967

== ENCOUNTER 2021-04-19 13:40 | Outpatient (REF) | payer MEDICAID, SELFPAY | END 2021-04-19 13:41 | disposition home or self-care (01) | LOC: LBN 13:40 | PROVIDERS: PCP Nurse Practitioner Family; Visit Provider Physician Assistant Medical | DX: N89.8 Other specified noninflammatory disorders of vagina (principal) | CPT/HCPCS: 87480; 87510; 87660 ==

== ENCOUNTER 2021-09-27 17:08 | Outpatient (REF) | payer MEDICAID, SELFPAY | END 2021-09-27 17:09 | disposition home or self-care (01) | LOC: LBN 17:08 | PROVIDERS: PCP Nurse Practitioner Family; Visit Provider Nurse Practitioner Family | DX: N89.8 Other specified noninflammatory disorders of vagina (principal) | CPT/HCPCS: 87480; 87510; 87660 ==

== ENCOUNTER → 2022-02-25 13:03 | Outpatient (CLI) | payer MEDICAID, SELFPAY ==
--- NOTE | 2022-02-25 | DI.RAD_ITS ---
Exam(s) XR CHEST 2V PA LATERAL EXAM: XR CHEST 2V PA LATERAL CLINICAL HISTORY: SHORTNESS OF BREATH--R06.02 TECHNIQUE: 2D digital imaging was performed. COMPARISON: No exams were available for comparison FINDINGS: HEART: Normal size. Aorta: PULMONARY VASCULATURE: Normal. LUNGS: Clear. PLEURAL SPACE: No pleural effusion or pneumothorax. BONE:Rods in spine, unchanged. IMPRESSION: No acute abnormality. DATA REPOSITORY: RADIATION DOSE DELIVERED:
== END ==
PROVIDERS: PCP Nurse Practitioner Family; Visit Provider Nurse Practitioner Family
DX: R06.02 Shortness of breath (principal)
CPT/HCPCS: 71046

== ENCOUNTER 2022-04-11 12:59 | Outpatient (REF) | payer MEDICAID, SELFPAY ==
[2022-04-11 15:36] LABS: Abs Immature Grans 0.01 10^3/uL (0.0-0.06); Absolute Basophil Count 0.04 10^3/uL (0.0-0.2); Absolute Eosinophil Count 0.09 10^3/uL (0.0-0.7); Absolute Lymphocyte Count 1.99 10^3/uL (1.2-3.4); Absolute Monocyte Count 0.68 10^3/uL (0.1-0.8); Absolute Neutrophil Count 3.89 10^3/uL (1.2-6.7); Basophils % 0.6; Eosinophils % 1.3; HCT 41.1 % (36.0-46.0); HGB 14.1 g/dL (11.2-15.7); Immature Grans % 0.1; Lymphocytes % 29.7; MCH 30.9 pg (27.0-33.0); MCHC 34.3 % (32.0-36.0); MCV 90 fL (80-95); Monocytes % 10.1; Neutrophils % 58.2; Platelet Count 266 10^3/uL (130-400); RBC 4.56 10^6/uL (3.93-5.22); RDW 11.9 % (11.7-14.6); RDW-SD 39.3 fL
[2022-04-11 16:07] LABS: Iron 112 ug/dL (50-170); Total Iron Binding Capacity 343 ug/dL (250-450); Transferrin Sat 33 % (15-50)
[2022-04-11 16:15] LABS: Vitamin D 25 Total 22.6 ng/mL (30-100)
[2022-04-11 16:19] LABS: ALT 18 U/L (14-59); AST 17 U/L (15-37); Alkaline Phosphatase 65 U/L (46-116); Anion Gap 6.5 mmol/L (3-11); BUN 13 mg/dL (7-18); Bilirubin, Total 0.5 mg/dL (0.2-1.0); CO2 29.5 mmol/L (21.0-32.0); CREATININE 0.6 mg/dL (0.55-1.02); Calcium 9.1 mg/dL (8.5-10.1); Chloride 103 mmol/L (98-107); Estimated GFR 113.44 (mL/min/1.73m2); Glucose 84 mg/dL (74-106); Potassium 4.6 mmol/L (3.5-5.1); Sodium 139 mmol/L (136-145); TSH (W/Ref FT4) 0.92 uIU/mL (0.36-3.74); Total Protein 7.4 g/dL (6.4-8.2); Vitamin B12 284 pg/mL (193-986)
== END 2022-04-11 13:00 | disposition home or self-care (01) ==
LOC: NCHCN 12:59
PROVIDERS: PCP Nurse Practitioner Family; Visit Provider Nurse Practitioner Family
DX: R21 Rash and other nonspecific skin eruption (principal); R53.83 Other fatigue; F41.8 Other specified anxiety disorders; Z86.2 Personal history of diseases of the blood and blood-forming organs and certain disorders involving the immune mechanism; E55.9 Vitamin D deficiency, unspecified
CPT/HCPCS: 80053; 82306; 82607; 83540; 83550; 83735; 84443; 85025

== ENCOUNTER 2022-12-16 19:54 | Outpatient (REF) | payer BC, SELFPAY ==
[2022-12-16 20:27] LABS: Abs Immature Grans 0.01 10^3/uL (0.0-0.06); Absolute Basophil Count 0.03 10^3/uL (0.0-0.2); Absolute Eosinophil Count 0.08 10^3/uL (0.0-0.7); Absolute Lymphocyte Count 1.61 10^3/uL (1.2-3.4); Absolute Monocyte Count 0.63 10^3/uL (0.1-0.8); Absolute Neutrophil Count 4.44 10^3/uL (1.2-6.7); Basophils % 0.4; Eosinophils % 1.2; HGB 13.5 g/dL (11.2-15.7); Immature Grans % 0.1; Lymphocytes % 23.7; MCH 29.6 pg (27.0-33.0); MCHC 32.9 % (32.0-36.0); MCV 90 fL (80-95); MPV 9.9 fL (8.0-11.0); Monocytes % 9.3; Neutrophils % 65.3; Platelet Count 239 10^3/uL (130-400); RBC 4.56 10^6/uL (3.93-5.22); RDW 12.1 % (11.7-14.6); RDW-SD 40.3 fL
[2022-12-16 21:10] LABS: ALT 19 U/L (14-59); AST 13 U/L (15-37); Alkaline Phosphatase 72 U/L (46-116); Anion Gap 5.9 mmol/L (3-11); BUN 10 mg/dL (7-18); Bilirubin, Total 0.6 mg/dL (0.2-1.0); CO2 29.1 mmol/L (21.0-32.0); CREATININE 0.6 mg/dL (0.55-1.02); Calculated LDL 102 mg/dL (<100); Chloride 102 mmol/L (98-107); Cholesterol 190 mg/dL (<200); Estimated GFR 112.73 (mL/min/1.73m2); Ferritin 63 ng/mL (8-252); Glucose 96 mg/dL (74-106); HDL Cholesterol 72 mg/dL (40-60); Magnesium 1.9 mg/dL (1.8-2.4); Potassium 4.2 mmol/L (3.5-5.1); Sodium 137 mmol/L (136-145); TSH (W/Ref FT4) 1.57 uIU/mL (0.36-3.74); Total Protein 7.4 g/dL (6.4-8.2); Triglyceride 84 mg/dL (<150)
[2022-12-16 21:28] LABS: Iron 101 ug/dL (50-170); Total Iron Binding Capacity 350 ug/dL (250-450); Transferrin Sat 29 % (15-50)
[2022-12-18 10:03] LABS: Lyme Ab w Rflx to Lyme Confirm Negative (Negative)
== END 2022-12-16 19:55 | disposition home or self-care (01) ==
LOC: NCHCN 19:54
PROVIDERS: Visit Provider Nurse Practitioner Family
DX: R53.83 Other fatigue (principal); Z86.2 Personal history of diseases of the blood and blood-forming organs and certain disorders involving the immune mechanism; T14.8XXA Other injury of unspecified body region, initial encounter; W57.XXXA Bitten or stung by nonvenomous insect and other nonvenomous arthropods, initial encounter; Z01.84 Encounter for antibody response examination; Z13.220 Encounter for screening for lipoid disorders; R79.89 Other specified abnormal findings of blood chemistry
CPT/HCPCS: 80053; 80061; 82728; 83540; 83550; 83735; 84443; 85025; 86618

== ENCOUNTER 2023-04-25 07:46 | Emergency (ER) | payer BC, MEDICAID, SELFPAY ==
[2023-04-25 07:48] VITALS: BP 146/89; PULSE 76; RESP 18; TEMP 36.4; O2SAT 100
[2023-04-25] MEDS: Normal Saline 1,000 ML 1000 ML IV (08:00)
--- NOTE | 2023-04-25 08:00 | DI.US_ITS ---
Exam(s) US PELVIS TRANSVAGINAL EXAM: US PELVIS TRANSVAGINAL CLINICAL HISTORY: left lower abd pain, crampy, bloating, fullness. TECHNIQUE: Transabdominal and transvaginal pelvic ultrasound was performed using standard protocol. COMPARISON: US US PELVIS from 03/22/2020 FINDINGS: UTERUS: Position: Anteverted. Size: 10.8 long by 5.1 AP by 6.2 transverse cm Endometrium: 0.5 cm. Normal for patient's menstrual status. There is an IUD in good position. Myometrium: Unremarkable. Cervix: Nabothian cysts are seen. OVARIES: Right: 3.1 x 1.7 x 1.7 cm Cyst or mass: No suspicious cystic or solid masses. Left: 4.6 x 3.2 x 3.2 cm Cyst or mass: There is a 3 x 2.3 x 3.6 cm simple cyst on the left ovary. No adnexal tubular structur es are seen. The left ovary is in the normal location lateral to the uterus. There is no free pelvi c fluid. Ovarian stroma is of normal echogenicity. DOPPLER: Color: Symmetric and uniform flow to both ovaries. CUL-DE-SAC: Free fluid: None. Other: None. IMPRESSION: 1. Normal-appearing uterus with endometrial stripe within normal limits. 2. IUD is in good position. 3. 3.0 x 2.3 x 3.6 cm simple cyst on the left ovary. This is probably a functional cyst. However, f ollow-up transvaginal ultrasound in 6 8 weeks is recommended for re-evaluation. 4. Normal blood flow seen to both ovaries. No evidence of torsion is seen. 5. Findings were discussed with Dr. Nuno at 10 a.m. on 04/25/2023. DATA REPOSITORY:
--- NOTE | 2023-04-25 08:12 | W.ED.GENAD ---
Discharge Plan Disposition Patient Disposition: Home Condition: Stable Discharge Details Clinical Impression: Abdominal pain, Left ovarian cyst Primary Care Provider: Judith Wilhelm ED Provider: Shahbaz Nuno Home Meds and New Rx's Prescriptions: Continued fluticasone propionate [Flovent HFA] 110 mcg/actuation HFA aerosol inhaler 2 puff IH BID magnesium 200 mg tablet 200 mg PO DAILY Flonase Sensimist 27.5 mcg/actuation spray,suspension 1 spray MERLE PRN Mirena 20 mcg/24 hours (6 yrs) 52 mg intrauterine device 1 device intrauterine ONCE Patient Comments: Placed on 03/07/2020 Rx Instructions: as a single dose Discharge Instructions Instructions: Ovarian Cyst (ED), Abdominal Pain (ED) Additional Instructions: Please follow-up with gynecology. You should have a repeat ultrasound performed in 6 to 8 weeks as recommended by radiology. Please take ibuprofen over the counter. Take 600mg by mouth every 6 hours as needed for pain. Please contact your primary care physician to arrange follow-up. Return to the ER immediately for any worsening or new concerning symptoms. Referrals: [facility] [Provider Group] Judith Wilhelm [Primary Care Provider] - Discharge Data Discharge Date/Time-TO BE ENTERED AT DEPARTURE: 04/25/23 10:19 Medical Decision Making 816??47-year-old female with history of prior diverticulitis, irregular menses with Mirena, here with left lower abdominal crampy, sharp pain with lower abdominal fullness and vaginal bleeding over the past day. Pain not consistent with prior diverticulitis flare. Patient is tender in her left lower abdomen and left flank. Consider ovarian cyst and torsion. Plan to obtain pelvic ultrasound. --Labs reviewed and mild leukocytosis noted. 1005??I discussed case with radiologist Dr. Paula who interpreted the pelvic ultrasound: 3.6 cm left ovarian cyst. Recommends follow-up repeat imaging in 6 to 8 weeks. No torsion. IUD in adequate position. -- Results and recommendation discussed with the patient. Discussed limitations of ultrasound and that is pain persists and does not improve as expected or worsens she should return for re evaluation. Imaging Data Radiologic Study: Imaging: Ultrasound Radiologist's impression: 1. Normal-appearing uterus with endometrial stripe within normal limits. 2. IUD is in good position. 3. 3.0 x 2.3 x 3.6 cm simple cyst on the left ovary. This is probably a functional cyst. However, follow-up transvaginal ultrasound in 6 8 weeks is recommended for re-evaluation. 4. Normal blood flow seen to both ovaries. No evidence of torsion is seen. Lab Data Lab results reviewed: Yes I reviewed the patient's lab results. Labs: Laboratory Tests Range/Units 04/25/23 04/25/23 07:58 08:25 WBC (4.4-10.8) 10^3/uL 11.52 H RBC (3.93-5.22) 10^6/uL 4.58 Hgb (11.2-15.7) g/dL 13.3 Hct (36.0-46.0) % 41.4 MCV (80-95) fL 90 MCH (27.0-33.0) pg 29.0 MCHC (32.0-36.0) % 32.1 RDW (11.7-14.6) % 12.2 Plt Count (130-400) 10^3/uL 224 MPV (8.0-11.0) fL 8.9 Immature Gran % 0.4 Neutrophils % 80.2 Lymphocytes % 10.8 Monocytes % 7.8 Eosinophils % 0.5 Basophils % 0.3 Nucleated RBC % (0.0-0.3) % 0.0 Absolute Neutrophils (1.2-6.7) 10^3/uL 9.24 H Absolute Lymphocytes (1.2-3.4) 10^3/uL 1.24 Absolute Monocytes (0.1-0.8) 10^3/uL 0.90 H Absolute Eosinophils (0.0-0.7) 10^3/uL 0.06 Absolute Basophils (0.0-0.2) 10^3/uL 0.03 Sodium (136-145) mmol/L 139 Potassium (3.5-5.1) mmol/L 3.8 Chloride (98-107) mmol/L 103 Carbon Dioxide (21.0-32.0) mmol/L 29.5 Anion Gap (3-11) mmol/L 6.5 BUN (7-18) mg/dL 9 Creatinine (0.55-1.02) mg/dL 0.7 Est GFR (CKD-EPI 2020) (mL/min/1.73m2) 108.62 Glucose (74-106) mg/dL 89 Calcium (8.5-10.1) mg/dL 8.4 L Total Bilirubin (0.2-1.0) mg/dL 0.7 AST (15-37) U/L 8 L ALT (14-59) U/L 12 L Alkaline Phosphatase (46-116) U/L 61 Total Protein (6.4-8.2) g/dL 7.1 Albumin (3.4-5.0) g/dL 3.6 Lipase (16-77) U/L 19 Urine Color (Yellow) Yellow Urine Clarity (Clear) Clear Urine pH (5-8) 7.0 Ur Specific [place] (1.005-1.025) 1.020 Urine Protein (Negative) mg/dL Negative Urine Ketones (Negative) mg/dL Negative Urine Blood (Negative) Trace-lysed H Urine Nitrite (Negative) Negative Urine Bilirubin (Negative) Negative Urine Urobilinogen (Up to 0.2) mg/dL 0.2 Ur Leukocyte Esterase (Negative) Negative Urine RBC (0-2) HPF 0-2 Urine WBC (0-5) HPF Negative Ur Epithelial Cells (Negative) HPF Moderate Urine Crystals (Negative) HPF Negative Urine Bacteria (Negative) HPF Rare Urine Casts (Negative) LPF Negative Urine Mucus (Negative) Negative Ur Culture Indicated? No Urine Glucose (Negative) mg/dL Negative HPI General Mode of arrival: ambulatory. Date/Time Provider Initiated Documentation: 04/25/23 07:54. Limitations to Documentation: no limitations. Information obtained by: patient. HPI Narrative: 47-year-old female with history of diverticulitis in the past, here with chief complaint of left lower abdominal pain. Patient notes severe left lower abdominal sharp and crampy pain over the past 24 hours. Symptoms persistent and worse this morning. Pain is different than prior flare of diverticulitis. Last flare was about a year ago. She notes when she has diverticulitis flare it affects her right side. Current pain feels crampy and more consistent with menstrual pain. She has associated spotting. She notes that she has a Mirena which has been in for the past 3-1/2 years and typically has irregular light menstruation every 2 to 3 months. Current bleeding is early for this cycle. Pain started yesterday has bilateral abdominal fullness and is now more localized to the left lower abdomen and radiating to left flank. No vaginal discharge. No urinary symptoms. No fever. Related Data Home Medications Medication Instructions Recorded Confirmed fluticasone furoate 27.5 1 spray intranasal PRN 08/13/18 04/25/23 mcg/actuation nasal spray,suspension (Flonase Sensimist) fluticasone propionate 110 2 puff inhalation BID 12/27/19 04/25/23 mcg/actuation HFA aerosol inhaler (Flovent HFA) magnesium 200 mg tablet 200 mg PO DAILY 03/07/20 04/25/23 levonorgestrel 21 mcg/24 hours (8 1 device intrauterine ONCE 03/16/20 04/25/23 yrs) 52 mg intrauterine device (Mirena) Allergies Allergy/AdvReac Type Severity Reaction Status Date / Time Sulfa (Sulfonamide Allergy Mild Verified 04/25/23 07:51 Antibiotics) morphine AdvReac Intermediate Verified 04/25/23 07:51 General Stated Complaint: FlankPain AGNES: 3 Review of Systems All systems reviewed & are unremarkable except as noted in HPI and below Constitutional Constitutional: Denies fever(s) Genitourinary Genitourinary: Reports as per HPI PFSH All Active Problems (Updated 04/25/23 @ 10:07 by Shahbaz Nuno MD) Left ovarian cyst (Acute) Abdominal pain (Acute) Acute diverticulitis (Acute) Diverticulitis (Chronic) Presence of IUD (Acute) 6 weeks follow-up (Acute) 2 weeks follow-up (Acute) Routine follow-up (Acute) Vaginal yeast infection (Acute) Asthma (Chronic) Ovarian cyst (Chronic) Scoliosis of thoracic spine (Acute) Wilcox Rods implanted age 17 Diverticulitis (Acute 01/06/13) Medical History Asthma Cervical scoliosis Childhood asthma Diverticulitis (01/06/13) Diverticulitis 01/2013 Eating disorder stress related Ovarian cyst Presence of IUD Scoliosis of thoracic spine Wilcox Rods implanted age 17 Surgical History Colonoscopy - IV Sedation (12/22/14) Dr. Hermilo Vidal Wilcox rods/spine placed age [age] [facility] Family History Maternal Grandmother Diabetes Social History Smoking/Tobacco Use Status: Former Tobacco Use Tobacco: How many years used: 4 Smoking risk assessment performed?: Yes Alcohol Intake: current Alcohol Intake frequency: a few times a week Alcohol type: wine Drug use: Occasionally Substance use type: marijuana Do you feel safe at home: Yes Do you feel safe in your relationship?: Yes History History 5 Para 4 Hx # Term Pregnancies 4 Multiple births 0 Hx # Pregnancies 0 Ectopic pregnancies 0 AB induced 1 Hx Number of Living Children 4 AB spontaneous 0 Past Pregnancies Del. Date GA/Weeks # Preg Succ Route Wgt Sex Labor Lgth Anesthesia Location Prov Complic 10/31/00 40 No vaginal 3033.399 g Female 9 hrs [facility] 07/26/04 40 No vaginal 2891.651 g Female 4 hrs [facility] 09/19/18 39 No vaginal 3940.584 g Male 7 hrs. 45 min. Shruti Winn CNM 01/24/20 40 No vaginal 3405 g Female Tasha Yanelis Delivery Date: 10/31/00 Last Updated by: Daisy Hilario VAVD failed, forceps for decreased FHT, cord around the neck Delivery Date: 07/26/04 Last Updated by: Daisy Hilario no meds, no problems Delivery Date: 09/19/18 Last Updated by: Shruti Winn CNM AMA, mild shoulder dystocia Delivery Date: 01/24/20 Last Updated by: Juany Bowen RN Pt delivered precipitously female over intact perineum. Exam Const General: cooperative and no acute distress HENMT Mouth: moist mucous membranes Eyes Conjunctivae: normal conjunctivae Sclera: normal sclerae Resp Auscultation: clear to auscultation bilaterally, no rales, no rhonchi and no wheezes Cardio Rate: regular rate and not tachycardic Rhythm: regular rhythm GI Inspection: no abdominal wall ecchymosis and non-distended Palpation: soft, not firm, no guarding, no masses, not rigid and tender in the LLQ and other (left flank) Back/Spine/Pelvis Back: no CVA tenderness and No erythema Skin General skin exam: no rashes or lesions noted Neuro General: patient alert, patient awake and tone normal Extrem General: no edema Psych Appearance: grossly normal Mental Status: mental status grossly normal Course Vital Signs Vital signs: Vital Signs Temperature 36.4 C L 04/25/23 07:48 Pulse 76 04/25/23 07:48 Respiratory Rate 18 04/25/23 07:48 Blood Pressure 146/89 H 04/25/23 07:48 Pulse Oximetry 100 04/25/23 07:48 Temperature 36.4 C L 04/25/23 07:48 Temperature Source Skin 04/25/23 07:48 Pulse 76 04/25/23 07:48 Respiratory Rate 18 04/25/23 07:48 Respiratory Effort Normal, Non-Labored 04/25/23 07:52 Blood Pressure 146/89 H 04/25/23 07:48 Blood Pressure Position Sitting 04/25/23 07:48 Pulse Oximetry 100 04/25/23 07:48 Oxygen Delivery Method Room Air 04/25/23 07:48 Oxygen Flow Rate 0 04/25/23 07:48 Pain Level 4 04/25/23 07:48 Lab/Test Results Lab/Test Results: POC- Test(urine) Negative
[2023-04-25 08:14] LABS: Bilirubin Negative (Negative); Blood Trace-lysed (Negative); Clarity Clear (Clear); Glucose Negative (Negative); Ketones Negative (Negative); Leukocyte Esterase Negative (Negative); Nitrite Negative (Negative); Urobilinogen 0.2 mg/dL (Up to 0.2)
[2023-04-25] MEDS: Ketorolac 15 MG/ML VIAL (08:26)
[2023-04-25 08:27] LABS: Bacteria Rare HPF (Negative); C & S Indicated? No; Casts Negative LPF (Negative); Crystals Negative HPF (Negative); Epithelial Cells Moderate HPF (Negative); Mucus Negative (Negative); RBC 0-2 HPF (0-2); WBC Negative HPF (0-5)
[2023-04-25 08:34] LABS: Abs Immature Grans 0.05 10^3/uL (0.0-0.06); Absolute Basophil Count 0.03 10^3/uL (0.0-0.2); Absolute Eosinophil Count 0.06 10^3/uL (0.0-0.7); Absolute Lymphocyte Count 1.24 10^3/uL (1.2-3.4); Absolute Neutrophil Count 9.24 10^3/uL (1.2-6.7); Basophils % 0.3; Eosinophils % 0.5; HCT 41.4 % (36.0-46.0); HGB 13.3 g/dL (11.2-15.7); Immature Grans % 0.4; Lymphocytes % 10.8; MCHC 32.1 % (32.0-36.0); MCV 90 fL (80-95); MPV 8.9 fL (8.0-11.0); Monocytes % 7.8; Neutrophils % 80.2; Platelet Count 224 10^3/uL (130-400); RBC 4.58 10^6/uL (3.93-5.22); RDW 12.2 % (11.7-14.6); WBC 11.52 10^3/uL (4.4-10.8)
[2023-04-25 08:53] LABS: ALT 12 U/L (14-59); AST 8 U/L (15-37); Albumin 3.6 g/dL (3.4-5.0); Alkaline Phosphatase 61 U/L (46-116); Anion Gap 6.5 mmol/L (3-11); BUN 9 mg/dL (7-18); Bilirubin, Total 0.7 mg/dL (0.2-1.0); CO2 29.5 mmol/L (21.0-32.0); CREATININE 0.7 mg/dL (0.55-1.02); Calcium 8.4 mg/dL (8.5-10.1); Chloride 103 mmol/L (98-107); Estimated GFR 108.62 (mL/min/1.73m2); Glucose 89 mg/dL (74-106); Lipase 19 U/L (16-77); Potassium 3.8 mmol/L (3.5-5.1); Sodium 139 mmol/L (136-145); Total Protein 7.1 g/dL (6.4-8.2)
--- NOTE | 2023-04-25 10:11 | NUR.NOTE ---
Nursing Note:PT needs follow up with [facility] in a few weeks for a left ovarian cyst. Juany, ED
== END 2023-04-25 10:19 | disposition home or self-care (01) ==
PROVIDERS: Emergency Provider Student in an Organized Health Care Education/Training Program; PCP Nurse Practitioner Family
DX: R10.32 Left lower quadrant pain (principal); N83.202 Unspecified ovarian cyst, left side; Z87.19 Personal history of other diseases of the digestive system
CPT/HCPCS: 36415; 80053; 81025; 83690; 96361; 96374; 99284; 76830; 76856; 81003; 81015; 85025; 99283; J1885

== ENCOUNTER 2024-09-05 10:00 | Emergency (ER) | payer BC, SELFPAY ==
[2024-09-05 10:12] VITALS: BP 118/79; PULSE 90; RESP 16; TEMP 36.6; O2SAT 97
--- NOTE | 2024-09-05 10:15 | DI.CT_ITS ---
Exam(s) CT ABDOMEN PELVIS W EXAM: CT ABDOMEN PELVIS W CLINICAL HISTORY: LLQ abd pain, Hx diverticulitis. TECHNIQUE: Imaging Protocol: Axial computed tomography images with coronal and sagittal reformatted images were created and reviewed CONTRAST MATERIAL: Intravenous: Omnipaque 350 Contrast volume:75 ml Oral: no COMPARISON: CT CT ABDOMEN PELVIS W from 10/31/2022 FINDINGS: ABDOMEN and PELVIS: Lung Bases: No acute findings. Liver: Normal density. No suspicious mass. Gallbladder and biliary tract: No radiodense calculus. No wall thickening or pericholecystic fluid. No biliary dilation. Pancreas: Normal density. No abnormal calcifications or inflammatory process. No evidence of mass. Spleen: Normal. Kidneys: Normal size, contour and axis. No radiodense stones. No obstructive uropathy. No suspicious masses seen. Adrenal glands: No masses seen. Vasculature: Abdominal aorta non-dilated. Soft tissues: Unremarkable. Bladder: No gross wall thickening. No calculi.No focal mass. Bowel: No obstruction. Stomach and small bowel are unremarkable. The appendix is not definitely moraima ntified. Diverticulosis is again noted in the lower descending and sigmoid colon. There is now artur ed inflammation and wall thickening involving the sigmoid consistent with diverticulitis. There is n o evidence of perforation or focal fluid collection. Peritoneal cavity: No ascites. No focal collection. Marked inflammation around the sigmoid colon. N o free air. Bones: Rods in thoracic and upper lumbar spine. Scoliosis. Reproductive organs: IUD present and uterus. Dominant left ovarian follicle. Lymph nodes: No pathologically enlarged lymph nodes. IMPRESSION:: Sigmoid diverticulitis. No evidence of abscess or perforation. RADIATION DOSE DELIVERED: Total DLP DATA REPOSITORY: All CT scans at this facility are submitted to the National Radiology Data Registry (NRDR) Dose Index Registry (DIR) with the [employer] (ACR). RADIATION OPTIMIZATION: All CT scans at this facility use at least one of these dose optimization te chniques: automated exposure control; mA and/or kV adjustment per patient size (includes targeted exa ms where dose is matched to clinical indication); or iterative reconstruction.
--- NOTE | 2024-09-05 10:25 | ED.GENADUL_ITS ---
Discharge Plan Disposition Patient Disposition: Home Condition: Stable Discharge Details Clinical Impression: Diverticulitis Primary Care Provider: Haile Sams ED Provider: Yoselyn Jaramillo Home Meds and New Rx's Prescriptions: New amoxicillin-pot clavulanate 875-125 mg tablet 1 tab PO BID 10 Days Qty: 20 0RF ondansetron 4 mg tablet,disintegrating 4 mg PO Q8H PRN (Reason: nausea and vomiting) 4 Days Qty: 9 0RF Rx Instructions: Take 1 tablet up to 3 times daily as needed for nausea and vomiting 20 minutes prior to meals. Discharge Instructions Instructions: Diverticulitis Additional Instructions: CT shows that you have some severe diverticulitis no obstruction no appendicitis. Please take the antibiotic with yogurt or probiotic as directed twice daily for the next 10 days. Take the nausea medications 28 to 30 minutes before eating or drinking anything. Clear liquid diet for the next 48 to 72 hours advance as tolerated with a bland diet. Stay away from anything fried fatty spicy or dairy. You may also take a gentle laxative such as MiraLAX which she can get [id number] as needed for constipation. Follow up with primary care provider in 3-5 days. Return to ED sooner if any worsening belly pain, fever vomiting unable to keep your medications down or concerns. Increase oral fluids. Please take Tylenol or Ibuprofen with food every 4-6 hours as needed for pain and swelling. Stand Alone Forms: Work Release Referrals: Haile Sams [Primary Care Provider] - 5 days HPI General Mode of arrival: ambulatory . Date/Time Provider Initiated Documentation: 09/05/24 10:02 . Limitations to Documentation: no limitations . Information obtained by: patient, RN notes reviewed and old records reviewed . HPI Narrative: 48-year-old female presents to the ER with a chief complaint of left lower quadrant abdominal pain which began on Friday afternoon. Does have a history of diverticulitis. She reports worsening pain, nausea and bloating. Decreased bowel movements. She does have an IUD in place. Related Data Home Medications ?Medication ?Instructions ?Recorded ?Confirmed amoxicillin 875 mg-potassium 1 tab PO BID 10 days #20 tabs 09/05/24 clavulanate 125 mg tablet ondansetron 4 mg disintegrating 4 mg PO Q8H PRN nausea and 09/05/24 tablet vomiting 4 days #9 tabs Previous Rx's ?Medication ?Instructions ?Recorded amoxicillin 875 mg-potassium 1 tab PO BID 10 days #20 tabs 09/05/24 clavulanate 125 mg tablet ondansetron 4 mg disintegrating 4 mg PO Q8H PRN nausea and 09/05/24 tablet vomiting 4 days #9 tabs Allergies Allergy/AdvReac Type Severity Reaction Status Date / Time morphine Allergy hallucinati Verified 09/05/24 10:17 on Sulfa (Sulfonamide Allergy hallucinati Verified 09/05/24 10:17 Antibiotics) on General Stated Complaint: Abd Prob AGNES: 3 Review of Systems All systems reviewed & are unremarkable except as noted in HPI and below Gastrointestinal Gastrointestinal: Reports abdominal pain, Reports constipation and Reports nausea Exam Narrative Exam Narrative: Constitutional: Alert and oriented x3. Appears stated age. Normal body habitus. Head: Normocephalic, no trauma. Eyes: Pupils PERRL, EOM's intact. Eyelids symmetrical without lesions, discharge, or swelling. Chest: RRR, Normal S1, S2, distal pulses intact. Resp: Lungs clear to auscultation bilaterally, no wheezes, rales, or rhonchi. Abdomen: Soft, non-distended, hypoactive bowel sounds all 4 quadrants, generalized tenderness worse in left lower quadrant. No masses or guarding palpated. Musculoskeletal: Normal gait, Moves all 4 extremities without difficulty. Skin: No suspicious rashes or lesions. Capillary refill less than 2 sec. Neurologic: Cranial nerves II-XII intact. Alert and oriented x 3. Motor: No deficits noted. Sensory: Intact bilaterally all 4 extremities. Hematologic/Lymphatic: No ecchymosis, no lymphadenopathy. Course Vital Signs Vital signs: Vital Signs Temperature 36.6 C 09/05/24 10:12 Pulse 90 09/05/24 10:12 Respiratory Rate 16 09/05/24 10:12 Blood Pressure 118/79 09/05/24 10:12 Pulse Oximetry 97 09/05/24 10:12 Temperature 36.6 C 09/05/24 10:12 Temperature Source Oral 09/05/24 10:12 Pulse 90 09/05/24 10:12 Respiratory Rate 16 09/05/24 10:12 Blood Pressure 118/79 09/05/24 10:12 Blood Pressure Position Sitting 09/05/24 10:12 Pulse Oximetry 97 09/05/24 10:12 Oxygen Delivery Method Room Air 09/05/24 10:12 Oxygen Flow Rate 0 09/05/24 10:12 Pain Level 8 09/05/24 10:12 Medical Decision Making 48-year-old female presents to the ER with a chief complaint of left lower quadrant abdominal pain which began on Friday afternoon. Does have a history of diverticulitis. She reports worsening pain, nausea and bloating. Decreased bowel movements. She does have an IUD in place. Workup ordered including CBC CMP, test, urinalysis lipase CT abdomen pelvis, fentanyl Zofran and 500 cc bolus. Differential diagnosis includes vomiting to ovarian cyst, diverticulitis, appendicitis, gastroenteritis, UTI. CT shows severe acute diverticulitis, CBC shows 16.74 leukocytosis, neutrophils 13.31, CMP largely unremarkable magnesium slightly low at 1.6 urinalysis shows trace blood trace leukocytes micro is pending at this time. Discussed treatment options including Flagyl Cipro versus Augmentin. Patient would prefer Augmentin at this time. Will give first dose here in the emergency department and sent home with 3 tablets of ondansetron. She also reports that her cramping is starting to come back. Additional dose of fentanyl [address] results with her she verbalized understanding. Patient was tolerating p.o. prior to discharge was ambulatory hemodynamically stable throughout her stay. This text was generated using [employer] dictation system, please disregard any oddities of phrase or misspellings. Imaging Data Radiologic Study: Imaging: CT Scan Radiologist's impression: FINDINGS: Diaphragm: Small hiatal hernia. Liver: Normal. No mass. Gallbladder and biliary ducts: Normal. No calcified stones. No ductal dilation. Pancreas: Normal. No ductal dilation. Spleen: Normal. No splenomegaly. Adrenal glands: Normal. No mass. Kidneys and ureters: Normal. No hydronephrosis. Stomach and bowel: Segment of wall thickening at the mid sigmoid colon, consistent with severe acute diverticulitis. No evidence of perforation or drainable collection. Marked pericolonic inflammatory stranding. Appendix: No evidence of appendicitis. Intraperitoneal space: Unremarkable. No free air. No significant fluid collection. Vasculature: Unremarkable. No abdominal aortic aneurysm. TAWNY BURGOS Preliminary Radiology Report RIGGING FOREMAN (QA) DISCREPANCY? If there is a discrepancy between the preliminary and final interpretation, please notify [facility] via [email or web address]. If you do not have access to our QA portal, call our QA team at [phone] CONFIDENTIALITY STATEMENT This report is intended only for the use of the referring physician, and only in accordance with law, If you received this in error, call [phone] Page 2 of 2 Lymph nodes: Unremarkable. No enlarged lymph nodes. Urinary bladder: Unremarkable as visualized. Reproductive: Left adnexal cyst measures 3.5 x 2.7 cm. IUD in the uterus. Bones/joints: Rods at the thoracolumbar junction. Soft tissues: Unremarkable. IMPRESSION: 1. Segment of wall thickening at the mid sigmoid colon, consistent with severe acute diverticulitis. No evidence of perforation or drainable collection. 2. Left adnexal cyst measures 3.5 x 2.7 cm. Lab Data Lab results reviewed: Yes I reviewed the patient's lab results. Labs: Laboratory Tests Range/Units 09/05/24 09/05/24 10:33 11:24 WBC (4.4-10.8) 10^3/uL 16.74 H RBC (3.93-5.22) 10^6/uL 4.40 Hgb (11.2-15.7) g/dL 13.3 Hct (36.0-46.0) % 39.3 MCV (80-95) fL 89 MCH (27.0-33.0) pg 30.2 MCHC (32.0-36.0) % 33.8 RDW (11.7-14.6) % 12.1 Plt Count (130-400) 10^3/uL 253 MPV (8.0-11.0) fL 9.4 Immature Gran % % 0.3 Neutrophils % % 79.5 Lymphocytes % % 10.0 Monocytes % % 9.9 Eosinophils % % 0.1 Basophils % % 0.2 Nucleated RBC % (0.0-0.3) % 0.0 Absolute Neutrophils (1.2-6.7) 10^3/uL 13.31 H Absolute Lymphocytes (1.2-3.4) 10^3/uL 1.67 Absolute Monocytes (0.1-0.8) 10^3/uL 1.66 H Absolute Eosinophils (0.0-0.7) 10^3/uL 0.02 Absolute Basophils (0.0-0.2) 10^3/uL 0.03 RBC Morphology Normal Sodium (136-145) mmol/L 136 Potassium (3.5-5.1) mmol/L 3.6 Chloride (98-107) mmol/L 101 Carbon Dioxide (21.0-32.0) mmol/L 26.2 Anion Gap (3-11) mmol/L 8.8 BUN (7-18) mg/dL 8 Creatinine (0.55-1.02) mg/dL 0.7 Est GFR (CKD-EPI 2020) (mL/min/1.73m2) 107.95 Glucose (74-106) mg/dL 101 Calcium (8.5-10.1) mg/dL 9.2 Magnesium (1.8-2.4) mg/dL 1.6 L Total Bilirubin (0.2-1.0) mg/dL 1.3 H AST (15-37) U/L 13 L ALT (14-59) U/L 17 Alkaline Phosphatase (46-116) U/L 63 Total Protein (6.4-8.2) g/dL 7.2 Albumin (3.4-5.0) g/dL 3.7 Lipase (<78) U/L 14 Urine Color (Yellow) Yellow Urine Clarity (Clear) Sl Cloudy Urine pH (5-8) 7.5 Ur Specific [place] (1.005-1.025) 1.010 Urine Protein (Neg-Trace) mg/dL Negative Urine Ketones (Negative) mg/dL Trace H Urine Blood (Negative) Trace-intact H Urine Nitrite (Negative) Negative Urine Bilirubin (Negative) Negative Urine Urobilinogen (Up to 0.2) mg/dL 0.2 Ur Leukocyte Esterase (Negative) Trace H Urine RBC (0-2) HPF 3-5 H Urine WBC (0-5) HPF 3-5 Ur Epithelial Cells (Negative) HPF Many Urine Crystals (Negative) HPF Negative Urine Bacteria (Negative) HPF Rare Urine Casts (Negative) LPF Negative Urine Mucus (Negative) Negative Ur Culture Indicated? No Urine Glucose (Negative) mg/dL Negative Quality:SDOH Health Related Social Needs: No Data to Display PFSH All Active Problems (Updated 09/05/24 @ 12:11 by Yoselyn Jaramillo NP) Diverticulitis (Chronic) Social History Smoking/Tobacco Use Status: Never Smoking risk assessment performed?: Yes Alcohol Intake: never Drug use: Never Substance use type: does not use Do you feel safe at home: Yes Do you feel safe in your relationship?: Yes Female Reproductive History Menstrual control method: progestin IUCD
[2024-09-05 10:42] LABS: Abs Immature Grans 0.05 10^3/uL (0.0-0.06); Absolute Eosinophil Count 0.02 10^3/uL (0.0-0.7); Absolute Monocyte Count 1.66 10^3/uL (0.1-0.8); Basophils % 0.2 %; Eosinophils % 0.1 %; HCT 39.3 % (36.0-46.0); HGB 13.3 g/dL (11.2-15.7); Immature Grans % 0.3 %; MCH 30.2 pg (27.0-33.0); MCHC 33.8 % (32.0-36.0); MCV 89 fL (80-95); MPV 9.4 fL (8.0-11.0); Monocytes % 9.9 %; Neutrophils % 79.5 %; Platelet Count 253 10^3/uL (130-400); RDW 12.1 % (11.7-14.6); RDW-SD 40.1 fL; WBC 16.74 10^3/uL (4.4-10.8)
[2024-09-05 10:43] LABS: Absolute Basophil Count 0.03 10^3/uL (0.0-0.2); Absolute Lymphocyte Count 1.67 10^3/uL (1.2-3.4); Absolute Neutrophil Count 13.31 10^3/uL (1.2-6.7)
[2024-09-05] MEDS: fentaNYL 100 MCG/2 ML VIAL 25 MCG IVP ×2 (10:46→12:40)
[2024-09-05] MEDS: Ondansetron 4 MG/2 ML VIAL IVP (10:46)
[2024-09-05] MEDS: Normal Saline Flush 10 ML SYR IVP (10:47)
[2024-09-05 11:02] LABS: ALT 17 U/L (14-59); AST 13 U/L (15-37); Albumin 3.7 g/dL (3.4-5.0); Alkaline Phosphatase 63 U/L (46-116); Anion Gap 8.8 mmol/L (3-11); BUN 8 mg/dL (7-18); Bilirubin, Total 1.3 mg/dL (0.2-1.0); CO2 26.2 mmol/L (21.0-32.0); CREATININE 0.7 mg/dL (0.55-1.02); Calcium 9.2 mg/dL (8.5-10.1); Chloride 101 mmol/L (98-107); Estimated GFR 107.95 (mL/min/1.73m2); Glucose 101 mg/dL (74-106); Lipase 14 U/L (<78); Magnesium 1.6 mg/dL (1.8-2.4); Potassium 3.6 mmol/L (3.5-5.1); Sodium 136 mmol/L (136-145); Total Protein 7.2 g/dL (6.4-8.2)
[2024-09-05 11:06] LABS: Diff Comment Agrees w/ Instrument; RBC Morphology Normal
[2024-09-05] MEDS: Normal Saline - Diluent 50 ML VIAL IJ (11:09)
[2024-09-05] MEDS: Omnipaque 350 MG/ML 100 ML BTL IJ (11:09)
[2024-09-05 11:33] LABS: Bilirubin Negative (Negative); Blood Trace-intact (Negative); Clarity Sl Cloudy (Clear); Glucose Negative (Negative); Ketones Trace mg/dL (Negative); Leukocyte Esterase Trace (Negative); Nitrite Negative (Negative); Urobilinogen 0.2 mg/dL (Up to 0.2); pH 7.5 (5-8)
--- NOTE | 2024-09-05 11:33 | DI.VRAD_ITS ---
PROCEDURE INFORMATION: Exam: CT Abdomen And Pelvis With Contrast Exam date and time: 09/05/2024 11:04 AM Age: 48 years old Clinical indication: Other: Llq abd pain, HX diverticulitis TECHNIQUE: Imaging protocol: Computed tomography of the abdomen and pelvis with contrast. Radiation optimization: All CT scans at this facility use at least one of these dose optimization techniques: automated exposure control; mA and/or kV adjustment per patient size (includes targeted exams where dose is matched to clinical indication); or iterative reconstruction. Contrast material: OMNI 350; Contrast volume: 75 ml; Contrast route: INTRAVENOUS (IV); COMPARISON: CT ABDOMEN PELVIS W 10/31/2022 3:49 PM FINDINGS: Diaphragm: Small hiatal hernia. Liver: Normal. No mass. Gallbladder and biliary ducts: Normal. No calcified stones. No ductal dilation. Pancreas: Normal. No ductal dilation. Spleen: Normal. No splenomegaly. Adrenal glands: Normal. No mass. Kidneys and ureters: Normal. No hydronephrosis. Stomach and bowel: Segment of wall thickening at the mid sigmoid colon, consistent with severe acute diverticulitis. No evidence of perforation or drainable collection. Marked pericolonic inflammatory stranding. Appendix: No evidence of appendicitis. Intraperitoneal space: Unremarkable. No free air. No significant fluid collection. Vasculature: Unremarkable. No abdominal aortic aneurysm. Lymph nodes: Unremarkable. No enlarged lymph nodes. Urinary bladder: Unremarkable as visualized. Reproductive: Left adnexal cyst measures 3.5 x 2.7 cm. IUD in the uterus. Bones/joints: Rods at the thoracolumbar junction. Soft tissues: Unremarkable. IMPRESSION: 1. Segment of wall thickening at the mid sigmoid colon, consistent with severe acute diverticulitis. No evidence of perforation or drainable collection. 2. Left adnexal cyst measures 3.5 x 2.7 cm. Dictated and Authenticated by: Mary Parekh MD. Orderin Clint Topete MD
[2024-09-05 11:43] LABS: Bacteria Rare HPF (Negative); C & S Indicated? No; Casts Negative LPF (Negative); Crystals Negative HPF (Negative); Epithelial Cells Many HPF (Negative); Mucus Negative (Negative)
[2024-09-05] MEDS: Ondansetron O.D.T. 4 MG TABEF, 3 TABS/BTL PO (12:40)
[2024-09-05] MEDS: Amoxicillin 875/Clav. 125 TAB PO (12:40)
[2024-09-05] MEDS: Amox. 875/Clav. 125, 2 TABS/BTL 1 TAB PO (12:41)
[2024-09-05 12:55] VITALS: BP 106/52; PULSE 89; RESP 16; O2SAT 93
--- NOTE | 2024-09-06 16:16 | NUR.NOTE ---
Patient called stating that she was reading the radiology report on the portal and that there were diagnosis' on it that were not explained to her. She asked to have a provider call her to explain. Gave the name and number to Deedee Goldman. Nursing Note:
== END 2024-09-05 12:52 | disposition home or self-care (01) ==
LOC: ER 12:48
PROVIDERS: Emergency Provider Registered Nurse Emergency; PCP Student in an Organized Health Care Education/Training Program
DX: K57.32 Diverticulitis of large intestine without perforation or abscess without bleeding; Z97.5 Presence of (intrauterine) contraceptive device
CPT/HCPCS: 36415; 80053; 81025; 83690; 96374; 96375; 96376; 99285; 74177; 81003; 81015; 83735; 85025; J2405; J3010; J3490

== ENCOUNTER 2024-11-24 13:07 | Emergency (ER) | payer BC, SELFPAY ==
--- NOTE | 2024-11-24 13:00 | RT.EKG_ITS ---
APPROVED REPORT Exam: Resting ECG Reason for Exam: chest pain Patient Location: E HR:89 bpm ECG Measurements Heart Rate 89 AXIS ND 164 P 73 QRSd 82 QRS 56 QT 376 T 29 QTc 457 Conclusion Sinus rhythm...normal P axis, V-rate 60- 99 Left atrial enlargement...P, P'>60mS, <-0.15mV V1 Low voltage, precordial leads...precordial leads <1.0mV No Occlusion NM
[2024-11-24 13:11] VITALS: BP 143/100; PULSE 82; RESP 18; TEMP 36.8; O2SAT 95
--- NOTE | 2024-11-24 13:30 | DI.RAD_ITS ---
Exam(s) XR CHEST 2V PA LATERAL EXAM: XR CHEST 2V PA LATERAL CLINICAL HISTORY: Chest pain TECHNIQUE: 2D digital imaging was performed. Two views. COMPARISON: No exams were available for comparison FINDINGS: HEART: Normal size. Aorta: Not dilated. PULMONARY VASCULATURE: Normal. MEDIASTINUM: Unremarkable. LUNGS: Clear. PLEURAL SPACE: No pleural effusion or pneumothorax. BONE:Thoracic spinal rods again noted. Scoliosis. SOFT TISSUES: Unremarkable. IMPRESSION: No acute abnormality. DATA REPOSITORY: RADIATION DOSE DELIVERED:
[2024-11-24 14:19] LABS: Abs Immature Grans 0.03 10^3/uL (0.0-0.06); HCT 39.3 % (36.0-46.0); HGB 12.7 g/dL (11.2-15.7); Immature Grans % 0.4 %; MCH 28.9 pg (27.0-33.0); MCHC 32.3 % (32.0-36.0); MCV 89 fL (80-95); MPV 9.3 fL (8.0-11.0); Platelet Count 242 10^3/uL (130-400); RBC 4.40 10^6/uL (3.93-5.22); RDW 12.5 % (11.7-14.6); RDW-SD 41.2 fL; WBC 8.37 10^3/uL (4.4-10.8)
[2024-11-24] MEDS: Aspirin 81 MG CHEW 324 MG CH (14:26)
[2024-11-24] MEDS: Normal Saline 1,000 ML 1000 ML IV (14:26)
[2024-11-24] MEDS: Ondansetron O.D.T. 4 MG TABEF PO (14:26)
[2024-11-24 14:36] LABS: ALT 18 U/L (14-59); AST 14 U/L (15-37); Albumin 3.8 g/dL (3.4-5.0); Alkaline Phosphatase 98 U/L (46-116); Anion Gap 7.6 mmol/L (3-11); BUN 8 mg/dL (7-18); Bilirubin, Total 0.6 mg/dL (0.2-1.0); CO2 30.4 mmol/L (21.0-32.0); Calcium 9.0 mg/dL (8.5-10.1); Chloride 100 mmol/L (98-107); Estimated GFR 111.34 (mL/min/1.73m2); Glucose 128 mg/dL (74-106); Potassium 3.5 mmol/L (3.5-5.1); Sodium 138 mmol/L (136-145); Total Protein 7.5 g/dL (6.4-8.2)
[2024-11-24 14:37] LABS: Troponin I < 4 ng/L (<or=51)
--- NOTE | 2024-11-24 15:21 | W.ED.GENAD ---
Discharge Plan Disposition Patient Disposition: Home Condition: Stable Discharge Details Clinical Impression: Chest pain, Weakness, Insect bite Primary Care Provider: Haile Sams ED Provider: Yoselyn Jaramillo Home Meds and New Rx's Prescriptions: New doxycycline hyclate 100 mg tablet 100 mg PO BID 10 Days Qty: 20 0RF No Action fluticasone propionate [Flovent HFA] 110 mcg/actuation HFA aerosol inhaler 2 puff IH BID magnesium 200 mg tablet 200 mg PO DAILY tizanidine 2 mg tablet 2 mg PO TID PRN Digestive Health Probiotic 10 billion cell capsule PO ashwaganda PO PRN calcium carbonate-vitamin D3 [Calcium 500 + D] 500 mg-10 mcg (400 unit) tablet 1 tab PO DAILY ferrous sulfate 325 mg (65 mg iron) tablet 325 mg PO DAILY PRN mecobalamin (vitamin B12) 500 mcg tablet,chewable PO Ad[employer] Capsule PO ascorbate calcium (vitamin C) 500 mg tablet 500 mg PO DAILY Collagen Plus Vitamin C 125-740 mg capsule PO metronidazole 0.75 % (37.5mg/5 gram) gel 1 appful vaginal ONCE PRN (Reason: irritation) Qty: 70 2RF Rx Instructions: Use s/p intercourse prn fluconazole 150 mg tablet 150 mg PO ONCE Qty: 1 1RF Rx Instructions: as a single dose. If symptoms still present in 5 days, refill and repeat dose. Flonase Sensimist 27.5 mcg/actuation spray,suspension 1 spray MERLE PRN Discharge Instructions Instructions: Lyme Disease (DC), Generalized Weakness, Lyme Disease Test, Chest Pain, Adult ED HPI General Mode of arrival: ambulatory. Date/Time Provider Initiated Documentation: 11/24/24 13:20. Limitations to Documentation: no limitations. Information obtained by: patient, RN notes reviewed and old records reviewed. HPI Narrative: 49-year-old female presents to the ER with a chief complaint of increased weakness over the last 2 days which has been progressive, chest pain, body aches joint pain, bull's-eye rash to her left chest and pain with deep breathing. She states that her chest aching last night denies any radiation into her back or neck, she states that approximately 3 days ago she was in bed and sustained to her left chest and thought that she was bit by a possible spider but did not actually see the insect that bit her. She describes her left chest is stinging. she also endorses a headache and working outside a lot. She does have a history of asthma, anxiety just recently started Singulair over the last 3 weeks and a LABA, other past medical history includes diverticulitis, cervical scoliosis, using eating disorder, anemia she does have some thoracic rods placed, is not a smoker. Related Data Home Medications ?Medication ?Instructions ?Recorded ?Confirmed fluticasone furoate 27.5 1 spray intranasal PRN 08/13/18 10/20/24 mcg/actuation nasal spray,suspension (Flonase Sensimist) fluticasone propionate 110 2 puff inhalation BID 12/27/19 10/20/24 mcg/actuation HFA aerosol inhaler (Flovent HFA) magnesium 200 mg tablet 200 mg PO DAILY 03/07/20 10/20/24 Lactobacillus acidophilus and cap PO 07/01/23 10/20/24 rhamnosus 10 billion cell capsule (Digestive Health Probiotic) ascorbate calcium (vitamin C) 500 500 mg PO DAILY 07/01/23 10/20/24 mg tablet ascorbic acid 125 mg-collagen, cap PO 07/01/23 10/20/24 hydrolyzed 740 mg capsule (Collagen Plus Vitamin C) ashwaganda PO PRN 07/01/23 10/20/24 calcium 500 mg (as 1 tab PO DAILY 07/01/23 10/20/24 carbonate)-vitamin D3 10 mcg (400 unit) tablet (Calcium 500 + D) ferrous sulfate 325 mg (65 mg 325 mg PO DAILY PRN 07/01/23 10/20/24 iron) tablet mecobalamin (vitamin B12) 500 mcg mcg PO 07/01/23 10/20/24 chewable tablet metronidazole 0.75 % (37.5 mg/5 1 appful vaginal ONCE PRN 07/01/23 10/20/24 gram) vaginal gel irritation #70 grams multivitamin with mineral-herbal cap PO 07/01/23 10/20/24 no.315 capsule (Adrenal [employer] capsule) tizanidine 2 mg tablet 2 mg PO TID PRN 07/01/23 10/20/24 fluconazole 150 mg tablet 150 mg PO ONCE #1 tab 10/20/24 10/20/24 doxycycline hyclate 100 mg tablet 100 mg PO BID 10 days #20 tabs 11/24/24 Previous Rx's ?Medication ?Instructions ?Recorded metronidazole 0.75 % (37.5 mg/5 1 appful vaginal ONCE PRN 07/01/23 gram) vaginal gel irritation #70 grams fluconazole 150 mg tablet 150 mg PO ONCE #1 tab 10/20/24 doxycycline hyclate 100 mg tablet 100 mg PO BID 10 days #20 tabs 11/24/24 Allergies Allergy/AdvReac Type Severity Reaction Status Date / Time morphine AdvReac Intermediate Other (See Unverified 10/20/24 08:31 Comment) Sulfa (Sulfonamide AdvReac Mild Swelling/Ed Unverified 10/20/24 08:31 Antibiotics) lean General Stated Complaint: Chest Pain AGNES: 3 Review of Systems All systems reviewed & are unremarkable except as noted in HPI and below Constitutional Constitutional: Reports as per HPI, Reports body ache(s), Reports chills, Reports malaise and Reports weakness Cardiovascular Cardiovascular: Reports as per HPI and Reports chest pain Respiratory Respiratory: Reports pain on inspiration Gastrointestinal Gastrointestinal: Denies abdominal pain, Denies diarrhea, Denies nausea and Denies vomiting Integumentary/Breasts Skin/Breast: Reports as per HPI, Reports erythema, Reports rash and Reports skin pain Neurologic Neurologic: Reports weakness Psychiatric Psychiatric: Reports anxiety Hematologic/Lymphatic Hematologic/Lymphatic: Denies easy bleeding, Denies easy bruising and Denies lymphadenopathy Allergic/Immunologic Allergic/Immunologic: Reports as per HPI and Denies urticaria Exam Narrative Exam Narrative: Constitutional: Alert and oriented x3. Appears stated age. Normal body habitus. Head: Normocephalic, no trauma. Eyes: Pupils PERRL, Red reflex noted, EOM's intact. Eyelids symmetrical without lesions, discharge, or swelling. Chest: RRR, Normal S1, S2, distal pulses intact. Resp: Lungs clear to auscultation bilaterally, no wheezes, rales, or rhonchi. Abdomen: Soft, non-distended, Normoactive bowel sounds all 4 quads. Musculoskeletal: Normal gait, Moves all 4 extremities without difficulty. Skin: Circular red raised maculopapular rash noted to her left lateral chest, no obvious puncture wound, no surrounding induration or ecchymosis, capillary refill less than 2 sec. Neurologic: Cranial nerves II-XII intact. Alert and oriented x 3. Motor: No deficits noted. Hematologic/Lymphatic: No ecchymosis, no lymphadenopathy. Course Vital Signs Vital signs: Vital Signs Temperature 36.8 C 11/24/24 13:11 Pulse 82 11/24/24 13:11 Respiratory Rate 18 11/24/24 13:11 Blood Pressure 143/100 H 11/24/24 13:11 Pulse Oximetry 95 11/24/24 13:11 Temperature 36.8 C 11/24/24 13:11 Temperature Source Oral 11/24/24 13:11 Pulse 82 11/24/24 13:11 Respiratory Rate 18 11/24/24 13:11 Respiratory Effort Normal, Non-Labored 11/24/24 15:12 Respiratory Depth Normal 11/24/24 15:12 Respiratory Pattern Normal 11/24/24 15:12 Blood Pressure 143/100 H 11/24/24 13:11 Blood Pressure Position Sitting 11/24/24 13:11 Pulse Oximetry 95 11/24/24 13:11 Oxygen Delivery Method Room Air 11/24/24 13:11 Oxygen Flow Rate 0 11/24/24 13:11 Lab/Test Results Lab/Test Results: Laboratory Tests Range/Units 11/24/24 14:08 WBC (4.4-10.8) 10^3/uL 8.37 RBC (3.93-5.22) 10^6/uL 4.40 Hgb (11.2-15.7) g/dL 12.7 Hct (36.0-46.0) % 39.3 MCV (80-95) fL 89 MCH (27.0-33.0) pg 28.9 MCHC (32.0-36.0) % 32.3 RDW (11.7-14.6) % 12.5 Plt Count (130-400) 10^3/uL 242 MPV (8.0-11.0) fL 9.3 Immature Gran % % 0.4 Neutrophils % % 79.6 Lymphocytes % % 9.0 Monocytes % % 9.9 Eosinophils % % 0.7 Basophils % % 0.4 Nucleated RBC % (0.0-0.3) % 0.0 Absolute Neutrophils (1.2-6.7) 10^3/uL 6.67 Absolute Lymphocytes (1.2-3.4) 10^3/uL 0.75 L Absolute Monocytes (0.1-0.8) 10^3/uL 0.83 H Absolute Eosinophils (0.0-0.7) 10^3/uL 0.06 Absolute Basophils (0.0-0.2) 10^3/uL 0.03 Sodium (136-145) mmol/L 138 Potassium (3.5-5.1) mmol/L 3.5 Chloride (98-107) mmol/L 100 Carbon Dioxide (21.0-32.0) mmol/L 30.4 Anion Gap (3-11) mmol/L 7.6 BUN (7-18) mg/dL 8 Creatinine (0.55-1.02) mg/dL 0.6 Est GFR (CKD-EPI 2020) (mL/min/1.73m2) 111.34 Glucose (74-106) mg/dL 128 H Calcium (8.5-10.1) mg/dL 9.0 Total Bilirubin (0.2-1.0) mg/dL 0.6 AST (15-37) U/L 14 L ALT (14-59) U/L 18 Alkaline Phosphatase (46-116) U/L 98 Troponin I (<or=51) ng/L < 4 Total Protein (6.4-8.2) g/dL 7.5 Albumin (3.4-5.0) g/dL 3.8 Medical Decision Making 49-year-old female presents to the ER with a chief complaint of increased weakness over the last 2 days which has been progressive, chest pain, body aches joint pain, bull's-eye rash to her left chest and pain with deep breathing. She states that her chest aching last night denies any radiation into her back or neck, she states that approximately 3 days ago she was in bed and sustained to her left chest and thought that she was bit by a possible spider but did not actually see the insect that bit her. She describes her left chest is stinging. she also endorses a headache and working outside a lot. She does have a history of asthma, anxiety just recently started Singulair over the last 3 weeks and a LABA, other past medical history includes diverticulitis, cervical scoliosis, using eating disorder, anemia she does have some thoracic rods placed, is not a smoker. Cardiac workup ordered including CBC CMP serial troponins and Lyme panel which is pending, chest x-ray. EKG performed while in triage, normal sinus rhythm, no significant ST depression elevation please see official report. No old EKG available for review. Care is to be handed off to oncoming provider BRYN Gómez pending 1 hour troponin and reevaluation. I do expect a disposition to be discharged. Will write for doxycycline 100 mg x 10 days. And close follow-up with PCP. Labs noted below. Patient is nontachycardic upon arrival, no reports of any recent trips in a car or plane, does not take any blood control, is a non-smoker. PE is very unlikely. Differential Diagnosis Differential Diagnosis: ND, CAD, anxiety, less likely PE, tick or Lyme related disease, spider bite Lab Data Lab results reviewed: Yes I reviewed the patient's lab results. Labs: Laboratory Tests Range/Units 11/24/24 14:08 WBC (4.4-10.8) 10^3/uL 8.37 RBC (3.93-5.22) 10^6/uL 4.40 Hgb (11.2-15.7) g/dL 12.7 Hct (36.0-46.0) % 39.3 MCV (80-95) fL 89 MCH (27.0-33.0) pg 28.9 MCHC (32.0-36.0) % 32.3 RDW (11.7-14.6) % 12.5 Plt Count (130-400) 10^3/uL 242 MPV (8.0-11.0) fL 9.3 Immature Gran % % 0.4 Neutrophils % % 79.6 Lymphocytes % % 9.0 Monocytes % % 9.9 Eosinophils % % 0.7 Basophils % % 0.4 Nucleated RBC % (0.0-0.3) % 0.0 Absolute Neutrophils (1.2-6.7) 10^3/uL 6.67 Absolute Lymphocytes (1.2-3.4) 10^3/uL 0.75 L Absolute Monocytes (0.1-0.8) 10^3/uL 0.83 H Absolute Eosinophils (0.0-0.7) 10^3/uL 0.06 Absolute Basophils (0.0-0.2) 10^3/uL 0.03 Sodium (136-145) mmol/L 138 Potassium (3.5-5.1) mmol/L 3.5 Chloride (98-107) mmol/L 100 Carbon Dioxide (21.0-32.0) mmol/L 30.4 Anion Gap (3-11) mmol/L 7.6 BUN (7-18) mg/dL 8 Creatinine (0.55-1.02) mg/dL 0.6 Est GFR (CKD-EPI 2020) (mL/min/1.73m2) 111.34 Glucose (74-106) mg/dL 128 H Calcium (8.5-10.1) mg/dL 9.0 Total Bilirubin (0.2-1.0) mg/dL 0.6 AST (15-37) U/L 14 L ALT (14-59) U/L 18 Alkaline Phosphatase (46-116) U/L 98 Troponin I (<or=51) ng/L < 4 Total Protein (6.4-8.2) g/dL 7.5 Albumin (3.4-5.0) g/dL 3.8 PFSH All Active Problems (Updated 11/24/24 @ 15:38 by Yoselyn Jaramillo NP) Insect bite (Acute) Weakness (Acute) Chest pain (Acute) Ovarian cyst affecting in first trimester, antepartum (Acute) Acute diverticulitis (Acute) Diverticulitis (Chronic) Asthma (Chronic) Ovarian cyst (Chronic) Scoliosis of thoracic spine (Acute) Wilcox Rods implanted age 17 Diverticulitis (Acute 01/06/13) Medical History Vaginitis Bone fracture Anemia Anxiety Vaginal yeast infection Eating disorder stress related Diverticulitis 01/2013 Childhood asthma Cervical scoliosis Surgical History Wilcox rods/spine placed age 16/15 FA Colonoscopy - IV Sedation (12/22/14) Dr. Hermilo Vidal Family History Maternal Grandmother Diabetes Social History Smoking/Tobacco Use Status: Never Tobacco: How many years used: 4 Smoking risk assessment performed?: Yes Alcohol Intake: never Drug use: Never Substance use type: does not use and marijuana Housing: house Do you feel safe at home: Yes Do you feel safe in your relationship?: Yes Female Reproductive History Menstrual Age of Menarche: 19 Duration of menses: <3 days control method: progestin IUCD History History 5 Para 4 Hx # Term Pregnancies 4 Multiple births 0 Hx # Pregnancies 0 Ectopic pregnancies 0 AB induced 1 Hx Number of Living Children 4 AB spontaneous 0 Past Pregnancies Del. Date GA/Weeks # Preg Succ Route Wgt Sex Labor Lgth Anesthesia Location Prov Complic 10/31/00 40 No vaginal 3033.399 g Female 9 hrs [facility] 07/26/04 40 No vaginal 2891.651 g Female 4 hrs [facility] 09/19/18 39 No vaginal 3940.584 g Male 7 hrs. 45 min. Shruti Winn CNM 01/24/20 40 No vaginal 3405 g Female Tasha Yanelis Delivery Date: 10/31/00 Last Updated by: Shanta Worthy VAVD failed, forceps for decreased FHT, cord around the neck- [facility] Delivery Date: 07/26/04 Last Updated by: Shanta Worthy no meds, no problems- [facility] Delivery Date: 09/19/18 Last Updated by: Shanta Worthy AMA, mild shoulder dystocia- [facility] Delivery Date: 01/24/20 Last Updated by: Shanta Worthy Pt delivered precipitously female infant over intact perineum. -Leeann
[2024-11-24 15:46] LABS: Troponin I 4 ng/L (<or=51)
[2024-11-24 16:03] VITALS: BP 134/68; PULSE 84; TEMP 38.2; O2SAT 100
[2024-11-25 10:52] LABS: Lyme Ab w Rflx to Lyme Confirm Negative (Negative)
[2024-11-27 19:33] LABS: B. miyamotoi PCR Negative (Negative); Babesia divergens/MO-1 Negative (Negative); Ehrlichia muris eauclairensis Negative (Negative)
== END 2024-11-24 16:01 | disposition home or self-care (01) ==
PROVIDERS: Emergency Provider Registered Nurse Emergency; PCP Student in an Organized Health Care Education/Training Program
DX: R07.9 Chest pain, unspecified (principal); R53.1 Weakness; S20.364A Insect bite (nonvenomous) of middle front wall of thorax, initial encounter; W57.XXXA Bitten or stung by nonvenomous insect and other nonvenomous arthropods, initial encounter
CPT/HCPCS: 80053; 87798; 93005; 96360; 99285; 71046; 84484; 85025; 86618; 93010; 99284